=== PATIENT | female | born 1975 | race Caucasian/White ===

== ENCOUNTER 2017-12-17 11:17 | Emergency (ER) | payer MEDICARE ==
[~2017-12-17] VITALS: Ht 162.6 cm; Wt 81.7 kg
[~2017-12-17 11:17] MED LIST: AMITRIPTYLINE H25 MG PO; BACLOFEN10 MG PO; BENADRYL ALLERG25 MG PO; CHLORHEXIDINE473 ML MM; CLARITIN5 MG PO; DAYPRO600 MG PO; DEPO-PROVE400 MG/1 M IM; DESMOPRESSIN A0.2 MG PO; DEXAMETHASONE4 MG PO; DIAZEPAM5 MG PO; DOXYCYCLINE HY100 MG PO; EPIPEN 2-P0.3 MG/0.3 IM; FLONASE ALLERG9.9 ML NS; GABAPENTIN100 MG PO; IBUPROFEN800 MG PO; MAXALT MLT10 MG PO; MAXALT10 MG PO; MEDICAL THC PO; METOCLOPRAMIDE10 MG PO; NORCO 7.5-3251 EACH PO; OXYCODONE-ACET1 EAC1 PO; RANITIDINE HCL150 MG PO; REGLAN10 MG PO; RIZATRIPTAN10 M1 PO; ROBAXIN-750750 MG PO; SINGULAIR10 MG PO; ZOFRAN ODT4 MG PO; ZYRTEC10 MG PO
[2017-12-17] MEDS ORDERED: ATIVAN2 MG PO (15:33)
--- NOTE | 2017-12-17 21:12 | EKG ---
[facility] [address] [facility] [address] [place] [address] Signed Sinus rhythm with short WV RSR' or QR pattern in V1 suggests right ventricular conduction delay Borderline ECG No previous ECGs available Confirmed by CAROLINA MEHTA MD ([id number]) on 12/17/2017 9:12:06 PM Electronically Signed By: CAROLINA MEHTA MD 12/17/172111 PATIENT NAME: SANJEEV MOREIRA Electrocardiogram DATE OF : 77 PHYSICIAN: CAROLINA MEHTA MD REPORT #: [id number] REPORT IS CONFIDENTIAL AND NOT TO BE RELEASED WITHOUT AUTHORIZATION
== END 2017-12-17 15:44 | disposition home or self-care (01) ==
LOC: ED 11:17
DX: R42 Dizziness and giddiness (principal); G43.909 Migraine, unspecified, not intractable, without status migrainosus; Z88.8 Allergy status to other drugs, medicaments and biological substances; Z91.030 Bee allergy status; Z88.5 Allergy status to narcotic agent; Z79.899 Other long term (current) drug therapy
CPT/HCPCS: 71046; 80053; 81001; 84484; 85025; 93005; 93010; 96361; 96374; 96375; 99284; J2060; J2405; J7030

== ENCOUNTER 2019-04-09 19:50 | Emergency (ER) | payer MEDICARE ==
[~2019-04-09] VITALS: Ht 162.6 cm; Wt 87.2 kg
[~2019-04-09 19:50] MED LIST changes: +ATIVAN2 MG PO; +FLONASE ALLERG9.9 ML NAS; +GABAPENTIN300 MG PO; +ZYRTEC10 M3 PO
--- OUTSIDE RECORDS SUMMARY | 2019-04-09 19:52 | XMS ---
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 Care History Medical/Surgical 05/24/2018 [facility] - PATIENT HAS NOT SEEN PCP DR HANSEN SINCE 06/24/2017. PATIENT HAS A LONG HISTORY OF CHRONIC HEADACHES/MIGRAINES. - PATIENT NEEDS TO FOLLOW UP WITH PCP AFTER ED VISIT. - PLEASE REFER PATIENT TO PCP OFFICE FOR CHRONIC CONDITIONS THAT ARE NON EMERGENT. E.D. VISIT COUNT (12 MO[address] 3 [facility]. TOTAL 3 NOTE: Visits indicate total known visits. ED/UCC VISIT TRACKING (12 MO.) 04/09/2019 19:51 [facility] [place] TYPE: Emergency COMPLAINT: - FOOT PAIN/INJURY 02/10/2019 20:04 [facility] [place] [place] TYPE: Emergency COMPLAINT: - HEADACHE DIAGNOSES: - Personal history of nicotine dependence - Acquired absence of other specified parts of digestive tract - Other nonmedicinal substance allergy status - Bee allergy status - Allergy status to narcotic agent status - Other prison (current) drug therapy - Headache 05/20/2018 21:52 [facility] [place] TYPE: Emergency COMPLAINT: - HEAD PAIN,NON INJURY DIAGNOSES: - Bee allergy status - Personal history of nicotine dependence - Other prison (current) drug therapy - Allergy status to narcotic agent status - Migraine, unspecified, not intractable, without status migrainosus - Headache - Allergy status to other drugs, medicaments and biological substances status INPATIENT VISIT TRACKING (12 MO.) No inpatient visits to display in this time frame [email or web address]
[2019-04-09] MEDS ORDERED: REGLAN10 MG PO (20:04)
[2019-04-09] MEDS ORDERED: MAXALT MLT10 MG PO (20:04)
[2019-04-09] MEDS ORDERED: ONDANSETRON ODT8 MG PO (20:04)
[2019-04-09] MEDS ORDERED: METHOTREXATE2.5 MG PO (20:05)
== END 2019-04-09 20:36 | disposition home or self-care (01) ==
LOC: ED 19:50
DX: S90.111A Contusion of right great toe without damage to nail, initial encounter (principal); Z91.030 Bee allergy status; Z91.041 Radiographic dye allergy status; Z88.5 Allergy status to narcotic agent; Z79.899 Other long term (current) drug therapy; W22.8XXA Striking against or struck by other objects, initial encounter
CPT/HCPCS: 73630; 99283-25

== ENCOUNTER 2019-09-01 20:47 | Emergency (ER) | payer MEDICARE ==
[~2019-09-01] VITALS: Ht 165.1 cm; Wt 88.6 kg
[~2019-09-01 20:47] MED LIST changes: +METHOTREXATE2.5 MG PO; +ONDANSETRON ODT8 MG PO
--- OUTSIDE RECORDS SUMMARY | 2019-09-01 20:50 | XMS ---
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 Care History Medical/Surgical 05/24/2018 [facility] - PATIENT HAS NOT SEEN PCP DR HANSEN SINCE 06/24/2017. PATIENT HAS A LONG HISTORY OF CHRONIC HEADACHES/MIGRAINES. - PATIENT NEEDS TO FOLLOW UP WITH PCP AFTER ED VISIT. - PLEASE REFER PATIENT TO PCP OFFICE FOR CHRONIC CONDITIONS THAT ARE NON EMERGENT. E.Ousmane. VISIT COUNT (12 MO.) 3 [facility]. TOTAL 3 NOTE: Visits indicate total known visits. ED/UCC VISIT TRACKING (12 MO.) 09/01/2019 20:47 [facility] [place] TYPE: Emergency COMPLAINT: - HEADACHE 04/09/2019 19:51 [facility] [place] TYPE: Emergency COMPLAINT: - FOOT PAIN/INJURY DIAGNOSES: - Striking against or struck by other objects, init encntr - Allergy status to narcotic agent status - Contusion of right great toe w/o damage to nail, init encntr - Other jail (current) drug therapy - Pain in right toe(s) - Bee allergy status - Radiographic dye allergy status 02/10/2019 20:04 [facility] [place] TYPE: Emergency COMPLAINT: - HEADACHE DIAGNOSES: - Personal history of nicotine dependence - Acquired absence of other specified parts of digestive tract - Other nonmedicinal substance allergy status - Bee allergy status - Allergy status to narcotic agent status - Other director long term care (current) drug therapy - Headache INPATIENT VISIT TRACKING (12 MO.) No inpatient visits to display in this time frame [id number]
[2019-09-01] MEDS ORDERED: LEFLUNOMIDE20 MG PO (21:02)
== END 2019-09-01 22:45 | disposition home or self-care (01) ==
LOC: ED 20:47
DX: R51 Headache (principal); Z88.5 Allergy status to narcotic agent; Z91.030 Bee allergy status; Z79.899 Other long term (current) drug therapy
CPT/HCPCS: 96361; 96374; 96375; 99283-25; J1200; J1885; J2765; J7030

== ENCOUNTER 2019-12-06 20:57 | Emergency (ER) | payer MEDICARE, OTHER ==
[~2019-12-06] VITALS: Ht 165.1 cm; Wt 88.5 kg
--- OUTSIDE RECORDS SUMMARY | ~2019-12-06 | XMS | Clinical Summary ---
Demographics + + + | Address | [address] | | | [place] [address] | + + + | Home Phone | | + + + | Preferred Language | Unknown | + + + | Marital Status | | + + + | Spiritism Affiliation | Unknown | + + + | Race | Unknown | + + + | Ethnic Group | Unknown | + + + Author + + + | Author | [facility] (Historical as of | | | 03-12-19) | + + + | Organization | [facility] (Historical as of | | | 03-12-19) | + + + | Address | Unknown | + + + | Phone | Unavailable | + + + Care Team Providers + +------+ + | Care Application Consultant Name | Role | Phone | + +------+ + | Sanjay Guy MD | PP | | + +------+ + Allergies Not on File Current Medications Not on file Active Problems Not on file Social History + +-------+ +--------+------+ | Tobacco Use | Types | Packs/Day | Years | Date | | | | | Used | | + +-------+ +--------+------+ | Never Assessed | | | | | + +-------+ +--------+------+ + + + | Sex Assigned at | Date Recorded | | | | + + + | Not on file | | + + + Plan of Treatment Not on file Results Not on filefrom Last 3 Months Insurance + +--------+ +------+-------+ + | Payer | Benefi | Subscriber | Type | Phone | Address | | | t Plan | ID | | | | | | / | | | | | | | Group | | | | | + +--------+ +------+-------+ + | MEDICARE | MEDICA | [id number] | | | [address] | | | RE | | | | [place] [address] | | | IP-OP | | | | | + +--------+ +------+-------+ + + +--------+ +--------+ + + | Guarantor Name | Accoun | Relation to | Date | Phone | Billing Address | | | t Type | Patient | of | | | | | | | | | | + +--------+ +--------+ + + | SANJEEV BENITEZ | Person | Self | [birth year] | Home: | [address] | | | [address]Fam | | 1974 | [phone] [place] | | | [place] | | [phone] | + +--------+ +--------+ + +"
--- OUTSIDE RECORDS SUMMARY | ~2019-12-06 | XMS | Encounter Summary ---
Demographics + + + | Address | [address] | | | [place] [address] | + + + | Home Phone | | + + + | Preferred Language | Unknown | + + + | Marital Status | Single | + + + | Yarsani Affiliation | Unknown | + + + | Race | White | + + + | Ethnic Group | Not or | + + + Author + + + | Author | [facility] | + + + | Organization | [facility] | + + + | Address | Unknown | + + + | Phone | Unavailable | + + + Support + + +---------+ + | Name | Relationship | Address | Phone | + + +---------+ + | Declined | ECON | Unknown | Unavailable | + + +---------+ + Care Team Providers + +------+ + | Care Warp Clamper Name | Role | Phone | + +------+ + | Sanjay Guy MD | PCP | | + +------+ + Reason for Visit Rehabilitation Therapy (Routine) +--------+--------+ + + + + | Status | Reason | Specialty | Diagnoses / | Referred By | Referred To | | | | | Procedures | Contact | Contact | +--------+--------+ + + + + | Closed | | Physical | | Rhm | [facility], | | | | Therapy | | Fibromyalgia | Esther L, | | | | | | [address] | MS,PT [address] | | | | | [address] | [address] | | | | | | [address] | [address] | | | | | | Physician's | [address] [place], | | | | | | Pavilion, | [place] [address] | | | | | | 4th floor | Phone: | | | | | | [place], [place] | [phone] | | | | | | [address] | Fax: | | | | | | Phone: | [phone] | | | | | | [phone] | | | | | | | Fax: | | | | | | | [phone] | | +--------+--------+ + + + + Encounter Details +--------+---------+ + + + | Date | Type | Department | Care Team | Description | +--------+---------+ + + + | 07/02/ | Office | Rehabilitation | Esther Mckenzie L, | Fibromyalgia | | 2016 | Visit | Services at [facility] | MS,PT [address] | (Primary Dx) | | | | [address] | [facility] | | | | | Loop Physician's | [place] [address] | | | | | [place], 4th floor | [phone] | | | | | [place], [place] | | | | | | [address] | | | | | | [phone] | | | +--------+---------+ + + + Social History + +-------+ [...] + + documented as of this encounter Patient Instructions Patient Instructions Esther Mckenzie MS,PT - 07/02/2016 1:30 PM PST Dear Brian, Thank you for working with me today. Your plan of care is 1 visit for tilt table test with Esther and work station support specialist for 90 minutes. Consider tilt table test to rule out neurally mediated hypotension. Need physician order sp ecifically for tilt table test. No food or caffeine for 4 hours before the test. Drink water and take medications as usual. You must have someone drive you to and from the test. Get sp ecific instruction on location of the test during reminder call for the test. Our aim is to help you achieve your goals. Following the plan of care is central to achiev ing these goals. If at any time you are unable to keep your scheduled appointment, we ask y ou contact us at least 24 hours in advance, either by using [employer] to cancel, or calling us at [phone]. Appointments cancelled with less than 24 hours notice are considered missed appointments . If two or more appointments are missed, you have the option to postpone your care to a t johnnie that works better for you, or move to same day scheduling. I look forward to working with you in your rehabilitation! ESTHER MCKENZIE MS, PT Physical Therapist [facility] REHABILITATION SERVICES AND HAND THERAPY [address] [facility], [address] [place] [phone] + documented in this encounter Progress Notes Etsher Mckenzie MS,PT - 07/02/2016 1:30 PM PSTFormatting of this note might be different f rom the original. Start of care: 07/02/2016 Date of onset: Date of Onset: 06/26/16 Referring/Attending Practitioner to Fibromyalgia Clinic: Sanjay Guy MD . Rheumatology Referring/Attending ProviderAiram Cary NP. Primary/Referral Diagnosis/ICD-9: ICD-10-CM ICD-9-CM 1. Fibromyalgia M79.7 729.1 Fibromyalgia/Myofascial Pain/729.1/ Rule out Fibromyalgia/Myofascial pain Insurance: Payor: [employer] / Plan: BCBS OUT OF STATE / Product Type: PPO / Date of : 1975 Service period from: 07/02/2016 to: 07/01/17 Number visits used/authorized: 1 [facility] PHYSICAL THERAPY INITIAL EVALUATION Brian De La Torre MR# [id number] SUBJECTIVE: History of Presenting Problem: Brian De La Torre is a 41 y.o. female who was diagnosed wit h fibromyalgia. Problems for 15 years, worse the past 2 years. Brian presents with the following complaints: fatigue, sleep disturbance, increased pain, cognitive problem, headaches, stiffness, hypersensitivity to light, hypersensitivity to chelle se and hypersensitivity to smells/chemicals. Patient reports a pain level of today. Precautions: None. History of Fainting: yes. History of lightheadedness and/or dizziness: no, associated with visual changes, associated with nausea and/or vomiting, associated with sensation of overall weakness and associated with sensation of warmth and/or sweating . History of Radiation Exposure: no. History: Negative history of heart arrhythmia. Negative history of ischemic or structural h eart disease. Positive history of diabetes - controlled by diet. Brian is not currently on medications for blood pressure or heart conditions. Medications: No current outpatient prescriptions on file. Prior/concurrent services related to the present problem: physical therapy. Brian Goals: safe exercise program, learn to manage pain and decrease symptoms. Present status: Most significant pain sites: neck and shoulders, lower back, hips, feet and right thumb DIP . Working Status: Brian is not working due to present problems. Living situation: Brian currently lives with a spouse and children, ages 16 and 14 and wit h pet(s). House Type: single level house. Activity Level/Exercise: walking. Brain currently has access to the following equipment: none. Pain is currently, on a scale of 0-10: 5 The best the pain ever gets on a scale of 0-10 is: 2 The worst the pain ever gets on a scale of 0-10 is: 10 Pain worsens with: overactivity, inactivity and cold. Pain improves with: heat and balance of rest/activity. Living situation/environment is limiting function: no. Requests family members or friends involved with rehabilitation therapy: no Anxieties or concerns about therapy: no OBJECTIVE: Vitals: There were no vitals taken for this visit. Cranial nerves III-XII grossly intact. grossly intact except: WFL Posture: Sitting Posture: head forward, slouched sitting, round forward shoulders and flat low back. ROM (limitations only): tight hamstrings MMT (limitations only): able to squat fully toflor using hand for assist Balance/coordination 360 degree NT. Right unilateral stance duration (seconds): 15/15 Left unilateral stance duration (seconds ): 15/15 Bilateral stance eyes closed, feet together (seconds) 15/15. Gait for 25 feet (Normal 5 sec for men, 6 seconds for women):Self-selected speed in seconds : 10 Fast speed in seconds: NT Gait Deviations: slow Brian is unable to heel walk. She is able to toe walk. Outcome Measure Assessment Tool Interpretation Score 07/02/2016 Activities-specific Balance Confidence scale (ABC) > 80% High level of functioning 50-80% Moderate level of functioning < 50% indicates Low level of functioning Score < 66% in older adult and < 40% in people with multiple sclerosis has been related to high risk for falls 66.25% TREATMENT TODAY: evaluation ASSESSMENT: Treatment diagnosis/ICD-9 code = Fibromyalgia/729.1 Brian requires services that can be safely and effectively performed only by a qualified therapist to address the following problems and achieve the following goals: Problems include: Pain, morning stiffness, minimal activity and/or decreased ROM or inadeq uate/no program for exercise. Reported falling, pain with walking and/or gait deviations no lizette. Pain and/or poor posture/positioning and inadequate seating at home, work, and/or car. Pain and needs instruction in compensation/pain management. Functional discharge goals, as discussed with the Brian, due in 12 weeks: 1) Demonstrate independent home exercise program. 2) Demonstrate safe, independent walking. 3) Know proper seating for work, home and/or car. 4) Demonstrate knowledge of pain compensation/management techniques to decrease pain and in crease function. 5) Obtain and use identified equipment /tools for pain management at home/work. PLAN OF CARE: Treatment plan: One on one treatment to instruct in home exercise program with appropriate self-monitoring , pain management/compensation techniques, posture/positioning during activ ities, proper gait with correct equipment and identification of equipment needed as indicate d in initial evaluation. Brian was given information/instructions on: tilt table test to rule out neurally mediated hypotension. recommended PT and OT appointments. Recommend therapy near patient's home.. Treatment began: 1:00 Treatment ended: 1:30 PT evaluation This note is to serve as the discharge summary if Brian fails to attend further Physical T herapy appointments or contact the therapist regarding any change in their status. ESTHER MCKENZIE MS, PT Physical Therapist [facility], [address] [facility] REHABILITATION SERVICES AND HAND THERAPY [address] [place] [address] And [facility], [address] [place] [address] documented in this encounter Plan of Treatment Not on filedocumented as of this encounter Procedures + +--------+ + + + | Procedure Name | Priori | Date/Time | Associated Diagnosis | Comments | | | ty | | | | + +--------+ + + + | ID PHYS THERAPY | Routin | 07/02/2016 | Fibromyalgia | | | EVALUATION | e | 2:37 PM | | | | | | PST | | | + +--------+ + + + documented in this encounter Visit Diagnoses + + | Diagnosis | + + | Fibromyalgia - Primary Mylagia and myositis, unspecified | + + documented in this encounter"
--- OUTSIDE RECORDS SUMMARY | ~2019-12-06 | XMS | Encounter Summary ---
Demographics + + + | Address | [address] | | | [place] [address] | + + + | Home Phone | | + + + | Preferred Language | Unknown | + + + | Marital Status | Single | + + + | Sikhism Affiliation | Unknown | + + + [...] Team Providers + +------+ + | Care Tool And Die Inspector Name | Role | Phone | + +------+ + | Sanjay Guy MD | PCP | | + +------+ + Encounter Details +--------+ + + + + | Date | Type | Department | Care Team | Description | +--------+ + + + + | 02/05/ | Document-Sc | Health Information | Unknown . | | | 2016 | anned | Services [phone] | | | | | | [address] | | | | | | Mailcode: [id number] | | | | | | [facility] | | | | | | [place], [place] | | | | | | [address] | | | | | | [phone] | | | +--------+ + + + [...] | + +--------+ + + + | LAB REPORTS | | 02/06/2016 | | Results for this | | | | 12:00 AM | | procedure are in the | | | | PDT | | results section. | + +--------+ + + + documented in this encounter Results LAB REPORTS (02/06/2016 12:00 AM PDT) + + + | Narrative | Performed At | + + + | | | + + + documented in this encounter Visit Diagnoses Not on filedocumented in this encounter"
--- OUTSIDE RECORDS SUMMARY | ~2019-12-06 | XMS | Clinical Summary ---
Demographics + + + | Address | [address] | | | [place] [address] | + + + | Home Phone | | + + + | Preferred Language | Unknown | + + + | Marital Status | Unknown | + + + | Samaritan Affiliation | Unknown | + + + | Race | Unknown | + + + | Ethnic Group | Unknown | + + + Author + + + | Author | [facility] | | | and [place] | + + + | Organization | [facility] | | | [...] Team Providers + +------+ + | Care City Detective Name | Role | Phone | + +------+ + | Sanjay Guy MD | PCP | | + +------+ + Allergies + + + + + + | Active Allergy | Reactions | Severity | Noted | Comments | | | | | Date | | + + + + + + | Bee Venom | Anaphylaxis | High | 01/26/20 | Delayed after | | | | | 17 | anaphylaxis, angio | | | | | | edema | + + + + + + | Codeine | Nausea And Vomiting | | 01/26/20 | | | | | | 17 | | + + + + + + | Iodine | Itching | | 01/26/20 | | | | | | 17 | | + + + + + + Medications + + + +---------+------+------+-------+ | Medication | Sig | Dispensed | Refills | Star | End | Statu | | | | | | t | Date | s | | | | | | Date | | | + + + +---------+------+------+-------+ | SUMAtriptan | Take 100 mg by mouth | | 0 | | | Activ | | (IMITREX) 100 mg | as needed for | | | | | e | | tablet | Migraine (took | | | | | | | | today). | | | | | | + + + +---------+------+------+-------+ | gabapentin | Take 100 mg by mouth | | 0 | | | Activ | | (NEURONTIN) 100 mg | Daily. | | | | | e | | capsule | | | | | | | + + + +---------+------+------+-------+ | prochlorperazine | Take 10 mg by mouth | | 0 | | | Activ | | (COMPAZINE) 10 mg | every 6 hours as | | | | | e | | tablet | needed (for | | | | | | | | migraines, nausea). | | | | | | + + + +---------+------+------+-------+ Active Problems + + + | Problem | Noted Date | + + + | Migraine without aura and without status migrainosus, not | 01/25/2017 | | intractable | | + + + | Medical marijuana use | 01/25/2017 | + + + Social History + [...] | + + + + + | Vaccine: | | | | | Dtap/Tdap/Td (1 - | 7 | | | | Tdap) | | | | + + + + + | Cervical Cancer | | | | | Screening (Pap) | 6 | | | + + + + + | Vaccine: Influenza | | | | | (Season Ended) | 0 | | | + + + + + Results Not on filefrom Last 3 Months Insurance + +--------+ +--------+ +---------+--------+ | Payer | Benefi | Subscriber | Effect | Phone | Address | Type | | | t Plan | ID | jennifer | | | | | | / | | Dates | | | | | | Group | | | | | | + +--------+ +--------+ +---------+--------+ | MEDICARE | MEDICA | [id number] | Effect | [phone] | | Medica | | | RE | | jennifer | 5 | | re | | | PART A | | for | | | | | | | | all | | | | | | | | dates | | | | + +--------+ +--------+ +---------+--------+ + +--------+ +--------+ + + | Guarantor Name | Accoun | Relation to | Date | Phone | Billing Address | | | t Type | Patient | of | | | | | | | | | | + +--------+ +--------+ + + | Brian De La Torre | Person | Self | [birth year] | [address] | al/Fam | | 1975 | [phone] | [address] [place], | | | [place] | | | [address] ([place]) | [place] [address] | + +--------+ +--------+ + + Advance Directives + + + + + | Type | Date Recorded | Patient | Explanation | | | | Senior Electronics Technician | | + + + + + | Power of | | | | | Bedspread Seamer | | | | + + + + + | Advance | | | | | Directive | | | | + + + + +
--- OUTSIDE RECORDS SUMMARY | ~2019-12-06 | XMS | Encounter Summary ---
Demographics + + + | Address | [address] | | | [place] [address] | + + + | Home Phone | | + + + | Preferred Language | Unknown | + + + | Marital Status | Single | + + + | Caodaism Affiliation | Unknown | + + + | Race | White | + + + | Ethnic Group | Not or | + + + Author + + + | Author | [facility] | + + + | Organization | [facility] | + + + | Address | Unknown | + + + | Phone | Unavailable | + + + Support + + +---------+ + | Name | Relationship | Address | Phone | + + +---------+ + | Declined | ECON | Unknown | Unavailable | + + +---------+ + Care Team Providers + +------+ + | Care Senior Care Manager Name | Role | Phone | + +------+ + | Sanjay Guy MD | PCP | | + +------+ + Encounter Details +--------+ + + + + | Date | Type | Department | Care Team | Description | +--------+ + + + + | 03/25/ | Document-Sc | Health Information | Unknown . | | | 2017 | anned | Services [address] | | | | | | [address] | | | | | | Mailcode: [id number] | | | | | | [facility] | | | | | | [place], [place] | | | | | | [address] | | | | | | [phone] | | | +--------+ + + + [...]
--- OUTSIDE RECORDS SUMMARY | ~2019-12-06 | XMS | Clinical Summary ---
Demographics + + + | Address | [address] | | | [place] [address] | + + + | Home Phone | | + + + | Preferred Language | Unknown | + + + | Marital Status | Single | + + + | Adventist Affiliation | Unknown | + + + [...] Team Providers + +------+ + | Care Wooden Boat Builder Name | Role | Phone | + +------+ + | Sanjay Guy MD | PCP | | + +------+ + Source Comments TRUMAN is fully live on both [facility] Ambulatory and [facility] InPatient.[facility] Allergies + + + + + + [...] | BCBS | xxxxxxxxxxx | 07/27/19 | [phone] | [address] | PPO | | SHIELD | OUT OF | x | 14-Pre | 8 | [address] | | | | STATE | | sent | | [place], | | | | | | | | [place] | | | | | | | | [address] | | + +--------+ +--------+ + +------+ [...] al/Fam | | 1975 | [phone] | [place] [address] | | | boubacar | | | 6 (Home) | | + +--------+ +--------+ + +"
--- OUTSIDE RECORDS SUMMARY | ~2019-12-06 | XMS | Encounter Summary ---
Demographics + + + | Address | [address] | | | [place] [address] | + + + | Home Phone | | + + + | Preferred Language | Unknown | + + + | Marital Status | Single | + + + | Zoroastrianism Affiliation | Unknown | + + + | Race | White | + + + | Ethnic Group | Not or | + + + Author + + + | Author | [facility] | + + + | Organization | [facility] | + + + | Address | Unknown | + + + | Phone | Unavailable | + + + Support + + +---------+ + | Name | Relationship | Address | Phone | + + +---------+ + | Declined | ECON | Unknown | Unavailable | + + +---------+ + Care Team Providers + +------+ + | Care Kitchen And Counter Worker Name | Role | Phone | + +------+ + | Sanjay Guy MD | PCP | | + +------+ + Encounter Details +--------+ + + + + | Date | Type | Department | Care Team | Description | +--------+ + + + + | 02/05/ | Document-Sc | Health Information | Unknown . | | | 2016 | anned | Services [address] | | | | | | [address] | | | | | | Mailcode: OP17A | | | | | | [facility] | | | | | | [place], [place] | | | | | | [address] | | | | | | [phone] | | | +--------+ + + + [...]
--- OUTSIDE RECORDS SUMMARY | ~2019-12-06 | XMS | Encounter Summary ---
Demographics + + + | Address | [address] | | | [place] [address] | + + + | Home Phone | | + + + | Preferred Language | Unknown | + + + | Marital Status | Single | + + + | Holiness Affiliation | Unknown | + + + | Race | White | + + + | Ethnic Group | Not or | + + + Author + + + | Author | [facility] | + + + | Organization | [facility] | + + + | Address | Unknown | + + + | Phone | Unavailable | + + + Support + + +---------+ + | Name | Relationship | Address | Phone | + + +---------+ + | Declined | ECON | Unknown | Unavailable | + + +---------+ + Care Team Providers + +------+ + | Care Fuel Management Handler Name | Role | Phone | + [...] | | | | | | | [place], [place] | | | | | | | [address] | | | | | | | Phone: | | | | | | | [phone] | | | | | | | Fax: | | | | | | | [phone] | +--------+--------+ + + + + Encounter [...] Dx) | | | | Barbara Jansen [address] | | | | | [address] | [place], [place] | | | | | Physician's | [address] | | | | | [place], 4th Floor | | | | | | [place], [place] | | | | | | [address] | | | | | | [phone] | | | +--------+---------+ + + + [...] Primary/Referral Diagnosis/ICD-9: Fibromyalgia M79.7 729.1 Insurance: Payor: [employer] [place] [employer] / Plan: [employer] OUT OF STATE / Product Type: PPO / Service period from: 07/02/2016 to: 09/30/2016 Number visits used/authorized: 07/[address] [facility] OCCUPATIONAL THERAPY EVALUATION: FIBROMYALGIA SUBJECTIVE: History of [...] migraines. Also of note, she has an [facility] history of migraines and has cognitive [...] for this). 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 Increased pain with work: NA Brian comes home unable to do tasks: NA Leisure activities: Camping- goes to [employer] and picks huckleb[employer]View. Coping Strategies: Playing with kittens, taking a [...] Evaluation Celeste Rudolph OT REHABILITATION SERVICES AT [address] Mailcode: Op19 [place] [address] documented in this enco unter Plan of Treatment Not on filedocumented as of this encounter Procedures + +--------+ + + + | Procedure Name | Priori | Date/Time | Associated Diagnosis | Comments | | | ty | | | | + +--------+ + + + | [place] OCCUPATIONAL | Routin | 07/02/2016 | Fibromyalgia [...]
--- OUTSIDE RECORDS SUMMARY | ~2019-12-06 | XMS | Encounter Summary ---
Demographics + + + | Address | [address] | | | [place] [address] | + + + | Home Phone | | + + + | Preferred Language | Unknown | + + + | Marital Status | Single | + + + | Denominational Affiliation | Unknown | + + + [...] Team Providers + +------+ + | Care Mortgage Loan Specialist Name | Role | Phone | [...] | | | | Physician's | [address] [place], | | | | | | [place] | [place] [address] | | | | | | 4th floor | Phone: | | | | | | [place], [place] | [phone] | | | | | | [address] | Fax: | | | | | | Phone: | [phone] | | | | | | [phone] | | | | | | | Fax: | | | | | | | [phone] | | +--------+--------+ + + + + Encounter Details +--------+---------+ + + + | Date | Type | Department | Care Team | Description | +--------+---------+ + + + | 07/02/ | Office | Rehabilitation | Esther Mckenzie L, | Fibromyalgia | | 2016 | Visit | Services at [facility] | MS,PT [address] | (Primary Dx) | | | | [address] | [facility] | | | | | Loop Physician's | [place] [address] | | | | | [place], 4th floor | [phone] | | | | | [place], [place] | | | | | | [address] | | | | | | [phone] | | | +--------+---------+ + + + [...] for tilt table test with Esther and child care development specialist for 90 minutes. Consider tilt table [...] 24 hours in advance, either by using [email or web address] to cancel, or calling us at [phone]. Appointments cancelled with less than 24 hours notice are considered missed appointments . If two or more appointments are missed, you have the option to postpone your care to a t johnnie that works better for you, or move to same day scheduling. I look forward to working with you in your rehabilitation! ESTHER MCKENZIE MS, PT Physical Therapist [facility] REHABILITATION SERVICES AND HAND THERAPY [address] [facility], [address] [place] [address] + documented in this encounter Progress [...] Pain/729.1/ Rule out Fibromyalgia/Myofascial pain Insurance: Payor: [employer] / Plan: BCBS OUT OF STATE / Product Type: PPO / Date of : 1975 Service period from: 07/02/2016 to: 07/01/17 Number visits used/authorized: 1 [facility] PHYSICAL THERAPY INITIAL EVALUATION Brian De La Torre MR# [id number] SUBJECTIVE: History of Presenting Problem: Brian De [...] Physical Therapist [facility], [facility] [facility] REHABILITATION SERVICES AND HAND THERAPY [address] [place] [address] And [facility], [address] [place] [address] documented in this encounter Plan of Treatment Not on filedocumented as of this encounter Procedures + +--------+ + + + | Procedure Name | Priori | Date/Time | Associated Diagnosis | Comments | | | ty | | | | + +--------+ + + + | [place] PHYS THERAPY | Routin | 07/02/2016 | [...]
--- OUTSIDE RECORDS SUMMARY | ~2019-12-06 | XMS | Encounter Summary ---
Demographics + + + | Address | [address] | | | [place] [address] | + + + | Home Phone | | + + + | Preferred Language | Unknown | + + + | Marital Status | Single | + + + | Restoration Affiliation | Unknown | + + + | Race | White | + + + | Ethnic Group | Not or | + + + Author + + + | Author | [facility] | + + + | Organization | [facility] | + + + | Address | Unknown | + + + | Phone | Unavailable | + + + Support + + +---------+ + | Name | Relationship | Address | Phone | + + +---------+ + | Declined | ECON | Unknown | Unavailable | + + +---------+ + Care Team Providers + +------+ + | Care Panel Saw Operator Name | Role | Phone | + [...] | | | | | | | [place], [place] | | | | | | | [address] | | | | | | | Phone: | | | | | | | [phone] | | | | | | | Fax: | | | | | | | [phone] | +--------+--------+ + + + + Encounter [...] | | | [address] | [place], [place] | | | | | Physician's | [address] | | | | | [place], 4th Floor | | | | | | [place], [place] | | | | | | [address] | | | | | | [phone] | | | +--------+---------+ + + + [...] Primary/Referral Diagnosis/ICD-9: Fibromyalgia M79.7 729.1 Insurance: Payor: [employer] [place] [employer] / Plan: [employer] OUT OF STATE / Product Type: PPO / Service period from: 07/02/2016 to: 09/30/2016 Number visits used/authorized: 07/27 [facility] OCCUPATIONAL THERAPY EVALUATION: FIBROMYALGIA SUBJECTIVE: [...] migraines. 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 Increased pain with work: NA Brian comes home unable to do tasks: NA Leisure activities: Camping- goes to [employer] and picks huckleb[employer]uddle. Coping Strategies: Playing with kittens, taking a [...] Celeste Rudolph OT REHABILITATION SERVICES AT [address] Mailcode: Op19 [place] [address] documented in this enco unter Plan of Treatment Not on filedocumented as of this encounter Procedures + +--------+ + + + | Procedure Name | Priori | Date/Time | Associated Diagnosis | Comments | | | ty | | | | + +--------+ + + + | [place] OCCUPATIONAL | Routin | 07/02/2016 | Fibromyalgia [...]
--- OUTSIDE RECORDS SUMMARY | ~2019-12-06 | XMS | Encounter Summary ---
Demographics + + + | Address | [address] | | | [place] [address] | + + + | Home Phone | | + + + | Preferred Language | Unknown | + + + | Marital Status | Single | + + + | Confucianist Affiliation | Unknown | + + + | Race | White | + + + | Ethnic Group | Not or | + + + Author + + + | Author | [facility] | + + + | Organization | [facility] | + + + | Address | Unknown | + + + | Phone | Unavailable | + + + Support + + +---------+ + | Name | Relationship | Address | Phone | + + +---------+ + | Declined | ECON | Unknown | Unavailable | + + +---------+ + Care Team Providers + +------+ + | Care Recyclable Products Sorter Name | Role | Phone | + [...] | | | | | Procedures | AFTER SCHOOL PROGRAM DIRECTOR [address] | Mailcode: | | | | | | [address] | [facility] | | | | | OCCUPATIONAL | [place] [address] | for Health | | | | | THERAPY | [place], [place] | and Healing, | | | | | REFERRAL | [address] | [address], | | | | | | Phone: | [address] Floor | | | | | | [phone] | [facility] [place] | | | | | | Fax: | [address] | | | | | | [phone] | Phone: | | | | | | | [phone] | | | | | | | Fax: | | | | | | | [phone] | +--------+--------+ + + + + Physical [...] | | | | | Procedures | AFTER SCHOOL PROGRAM DIRECTOR [address] | Mailcode: | | | | | PHYSICAL | [address] | [facility] | | | | | THERAPY | [address] | for Health | | | | | REFERRAL | [place], [place] | and Healing, | | | | | | [address] | [address], | | | | | | Phone: | [address]St Floor | | | | | | [phone] | [place], [place] | | | | | | Fax: | [address] | | | | | | [phone] | Phone: | | | | | | | [phone] | | | | | | | Fax: | | | | | | | [phone] | +--------+--------+ + + + + Reason [...] | | | | elevated CRP | [address] | | | | | and ESR | [address] | Physician's | | | | | | [place], | [place], | | | | | | [place] [address] | 4th floor | | | | | | Phone: | [place], [place] | | | | | | [phone] | [address] | | | | | | Fax: | Phone: | | | | | | [phone] | [phone] | | | | | | | Fax: | | | | | | | [phone] | +--------+--------+ + + + + Encounter Details +--------+---------+ + + + | Date | Type | Department | Care Team | Description | +--------+---------+ + + + | 07/02/ | Office | Rheumatology at | Airam Cary | Fibromyalgia | | 2016 | Visit | Physicians DOMO Mccullough [address] | (Primary Dx) | | | | [address] | [address] | | | | | Loop Physician's | [place], [place] | | | | | Pavilion, 4th floor | [address] | | | | | [place], [place] | [phone] | | | | | [address] | | | | | | [phone] | | | +--------+---------+ + + + [...] specifically dis cuss this consultation. Recommendations: WEBSITES: [email or web address] ([facility] research and information regarding patient education seminars [facility]) ` Www.[email or web address] BOOKS: "Fibromyalgia: Woman's Tool Kit" by Sara [...] "Fibromyalgia: After Your Visit", log into your [employer] account at http ://www.[facility]/ConsiderC. You can enter V003 in the TabSys Library" search box. Not on [employer]? Review the Tissue Genesishart section of your After Visit Summary for directions on ho w to sign up. [id number] [employer]. Care instructions adapted under license by [facility]. This care instruction is for use with your licensed healthcar e professional. If you have questions about a medical condition or this instruction, always ask your healthcare professional. [employer] disclaims any warranty or liabili ty for your use of this information. Content Version: 9.9.907789; Last Revised: December 10, 2012 "From the brain alone arise our pleasures, laughter, and jests, as well as our sorrows, daniel n, and griefs." Hippocrates documented in this encounter Progress Notes Airam Cary FNP - 07/02/2016 12:30 PM PSTFormatting of this note might be differe nt from the original. New Fibromyalgia Patient Consult: This patient was referred by: Sanjay Guy MD [facility] [address] [place] [address] [place] [address], . Your patient, Ms. De La Torre, a 41 y.o. female, was evaluated in the [facility] Fibromyalgia Clin ic on July 02, 2016. This evaluation consisted of a fibromyalgia focused history and amaro ited physical examination, psychosocial assessment with focus on group education (60 min) an d counselling regarding diagnosis, treatment options, self-care measures, expectations and p rognosis. Travelling from [place]. History of Current Problem: Ms. De La [...] smokeless tobacco history on file. Work History: [employer]. Medico-Legal: No pending litigation. Sleep History: Describes [...] scale (SS) rating of 6. The 2010 Samoan Tc ege of Rheumatology (ACR) criteria for diagnosis scores a WPI of 7 or greater and a SS of 5 positively as well as a WPI of 3 and a SS of 9 or greater. She suffers from moderate fibromy algia pain and dysfunction. She was given verbal and written information on fibromyalgia at the time of evaluation. The web site www.myalgia.[email or web address] is also an excellent resource for sarita [...] 3 [facility] . Trigger point injections give symptomatic [...] referral for re-evaluation. DOMO Montgomery RHEUMATOLOGY AT [address] Mailcode: Pv35 [place] [address] Display Progress Note in Tissue Genesishart: No documented in t his encounter Plan of Treatment Not on filedocumented as of this encounter Visit Diagnoses + + | Diagnosis | + + | Fibromyalgia - Primary Mylagia and myositis, unspecified | + + documented in this encounter
--- OUTSIDE RECORDS SUMMARY | ~2019-12-06 | XMS | Encounter Summary ---
Demographics + + + | Address | [address] | | | [place] [address] | + + + | Home Phone | | + + + | Preferred Language | Unknown | + + + | Marital Status | Single | + + + | Jain Affiliation | Unknown | + + + | Race | White | + + + | Ethnic Group | Not or | + + + Author + + + | Author | [facility] | + + + | Organization | [facility] | + + + | Address | Unknown | + + + | Phone | Unavailable | + + + Support + + +---------+ + | Name | Relationship | Address | Phone | + + +---------+ + | Declined | ECON | Unknown | Unavailable | + + +---------+ + Care Team Providers + +------+ + | Care Senior Network Engineer Name | Role | Phone | [...] [address] | | | | | [address] | [facility] | | | | | Loop Physician's | [place], [place] | | | | | [place], [address] [place] [address] | [address] | | | | | [place], [place] | [phone] | | | | | [address] | | | | | | [phone] | | | +--------+ + + + [...]
--- OUTSIDE RECORDS SUMMARY | ~2019-12-06 | XMS | Encounter Summary ---
Demographics + + + | Address | [address] | | | [place] [address] | + + + | Home Phone | | + + + | Preferred Language | Unknown | + + + | Marital Status | Single | + + + | Baptist Affiliation | Unknown | + + + [...] Team Providers + +------+ + | Care Retail Advertising Account Executive Name | Role | Phone | + +------+ + | aSnjay Guy MD | PCP | | + [...] | | | | | Procedures | MAGNETIC TESTING TECHNICIAN [address] | Mailcode: | | | | | | [address] | [facility] | | | | | OCCUPATIONAL | [place] | for Health | | | | | THERAPY | [place], [place] | and Healing, | | | | | REFERRAL | [address] | [address], | | | | | | Phone: | [address]St Floor | | | | | | [phone] | [facility] [place] | | | | | | Fax: | [address] | | | | | | [phone] | Phone: | | | | | | | [phone] | | | | | | | Fax: | | | | | | | [phone] | +--------+--------+ + + + + Physical [...] | | | | | Procedures | MAGNETIC TESTING TECHNICIAN [address] | Mailcode: | | | | | PHYSICAL | [address] | [facility] | | | | | THERAPY | [address]ella [address]gu[address] | for Health | | | | | REFERRAL | [place], [place] | and Healing, | | | | | | [address] | [address], | | | | | | Phone: | [address]St Floor | | | | | | [phone] | [place], [place] | | | | | | Fax: | [address] | | | | | | [phone] | Phone: | | | | | | | [phone] | | | | | | | Fax: | | | | | | | [phone] | +--------+--------+ + + + + Reason [...] | | | | elevated CRP | [place] | [address] | | | | | and ESR | [address] | Physician's | | | | | | [place], | [place], | | | | | | [place] [address] | 4th floor | | | | | | Phone: | [place], [place] | | | | | | [phone] | [address] | | | | | | Fax: | Phone: | | | | | | [phone] | [phone] | | | | | | | Fax: | | | | | | | [phone] | +--------+--------+ + + + + Encounter Details +--------+---------+ + + + | Date | Type | Department | Care Team | Description | +--------+---------+ + + + | 07/02/ | Office | Rheumatology at | [facility] | Fibromyalgia | | 2016 | Visit | Physicians DOMO Mccullough [address] | (Primary Dx) | | | | [address] | [address] | | | | | Loop Physician's | [place], [place] | | | | | Pavilion, 4th floor | [address] | | | | | [place], [place] | [phone] | | | | | [address] | | | | | | [phone] | | | +--------+---------+ + + + [...] specifically dis cuss this consultation. Recommendations: WEBSITES: Www.Curbsy.[email or web address] Online Media ([facility] research and information regarding patient education seminars [facility]) ` Www.Heirloom Computingia.[email or web address] Online Media BOOKS: "Fibromyalgia: Woman's Tool Kit" by Sara [...] "Fibromyalgia: After Your Visit", log into your [employer] account at http ://www.[email or web address]/Ingenious Med. You can enter V003 in the Matchpoint Careers Library" search box. Not on [employer]? Review the Wowsaihart section of your After Visit Summary for directions on ho w to sign up. 1646-0833 [employer]. Care instructions adapted under license by [facility]. This care instruction is for use with your licensed healthcar e professional. If you have questions about a medical condition or this instruction, always ask your healthcare professional. [employer] disclaims any warranty or liabili ty for your use of this information. Content Version: 9.9.988548; Last Revised: December 10, 2012 "From the brain alone arise our pleasures, laughter, and jests, as well as our sorrows, daniel n, and griefs." Hippocrates documented in this encounter Progress Notes Airam Cary FNP - 07/02/2016 12:30 PM PSTFormatting of this note might be differe nt from the original. New Fibromyalgia Patient Consult: This patient was referred by: Sanjay Guy MD [facility] [address] [place] [address] [place] [address], . Your patient, Ms. De La Torre, a 41 y.o. female, was evaluated in the [facility] Fibromyalgia Clin ic on July 02, 2016. This evaluation consisted of a fibromyalgia focused history and amaro ited physical examination, psychosocial assessment with focus on group education (60 min) an d counselling regarding diagnosis, treatment options, self-care measures, expectations and p rognosis. Travelling from [place]. History of Current Problem: Ms. De La [...] smokeless tobacco history on file. Work History: [employer]. Medico-Legal: No pending litigation. Sleep History: Describes [...] scale (SS) rating of 6. The 2010 Czech Tc ege of Rheumatology (ACR) criteria for diagnosis scores a WPI of 7 or greater and a SS of 5 positively as well as a WPI of 3 and a SS of 9 or greater. She suffers from moderate fibromy algia pain and dysfunction. She was given verbal and written information on fibromyalgia at the time of evaluation. The web site www.myalgia.Nectar Online Media is also an excellent resource for sarita [...] 3 to 4 [facility] . Trigger point injections give symptomatic relief [...] referral for re-evaluation. DOMO Montgomery RHEUMATOLOGY AT [address] Mailcode: Pv35 [place] [address] Display Progress Note in Wowsaihart: No documented in t his encounter Plan of Treatment Not on filedocumented as of this encounter Visit Diagnoses + + | Diagnosis | + + | Fibromyalgia - Primary Mylagia and myositis, unspecified | + + documented in this encounter
--- OUTSIDE RECORDS SUMMARY | ~2019-12-06 | XMS | Clinical Summary ---
Demographics + + + | Address | [address] | | | [place] [address] | + + + | Home Phone | | + + + | Preferred Language | Unknown | + + + | Marital Status | | + + + | Jewish Affiliation | Unknown | + + + | Race | Unknown | + + + | Ethnic Group | Unknown | + + + Author + + + | Author | [facility] (Historical as of | | | 03-12-19) | + + + | Organization | [facility] (Historical as of | | | 03-12-19) | + + + | Address | Unknown | + + + | Phone | Unavailable | + + + Care Team Providers + +------+ + | Care Cafeteria Cook Name | Role | Phone | + [...] +------+-------+ + | MEDICARE | MEDICA | [id number] | | | [address] | | | RE | | | | [place] [address] | | | IP-OP | | | [...] | [place] | | | [phone] | [phone] | + +--------+ +--------+ + +"
--- OUTSIDE RECORDS SUMMARY | ~2019-12-06 | XMS | Clinical Summary ---
Demographics + + + | Address | [address] | | | [place] [address] | + + + | Home Phone [...] Team Providers + +------+ + | Care Fast Food Server Name | Role | Phone | + +------+ + | Sanjay Guy MD | PCP | | + +------+ + Source Comments TRUMAN is fully live on both [facility] and [facility] InPatient.[facility] Allergies + + + + + + [...] | BCBS | xxxxxxxxxxx | 07/27/19 | [phone] | [address] | PPO | | SHIELD | OUT OF | x | 14-Pre | 8 | [address] | | | | STATE | | sent | | [place], | | | | | | | | [place] | | | | | | | | [address] | | + +--------+ +--------+ + +------+ [...] | 1975 | [phone] | [place] [address] | | | [place] | | | 6 (Home) | | + +--------+ +--------+ + +"
--- OUTSIDE RECORDS SUMMARY | ~2019-12-06 | XMS | Encounter Summary ---
Demographics + + + | Address | [address] | | | [place] [address] | + + + | Home Phone | | + + + | Preferred Language | Unknown | + + + | Marital Status | Unknown | + + + | Sabianism Affiliation | Unknown | + + + | Race | Unknown | + + + | Ethnic Group | Unknown | + + + Author + + + | Author | [facility] | | | and [place] | + + + | Organization | [facility] | | | [...] Team Providers + +------+ + | Care Clam Dredge Boat Captain Name | Role | Phone | + [...] + + | 01/25/ | Emergency | [facility] | Mary Jane Miranda, | Migraine without | | 2017 | | HOSPITAL EMERGENCY | [address] | aura and without | | | | CENTER [address] | [place], [place] | status migrainosus, | | | | [address] [place], [place] | [address] | not intractable | | | | [address] | [phone] | (Primary Dx) | | | | [phone] | | | +--------+ + + + [...] Care Everywhere.HEADACHE, MIGRA INE: STAGES AND TREATMENT (BRUNEIAN)documented in this encounter Medications at Time of [...] +---------+--------+ + documented as of this encounter Plan [...]
--- OUTSIDE RECORDS SUMMARY | ~2019-12-06 | XMS | Encounter Summary ---
Demographics + + + | Address | [address] | | | [place] [address] | + + + | Home Phone | | + + + | Preferred Language | Unknown | + + + | Marital Status | Single | + + + | Uatsdin Affiliation | Unknown | + + + [...] Team Providers + +------+ + | Care Powder Press Operator Name | Role | Phone | [...] [address] | | | | | [address] | [facility] | | | | | Loop Physician's | [place], [place] | | | | | [place], [address] [place] [address] | [address] | | | | | [place], [place] | [phone] | | | | | [address] | | | | | | [phone] | | | +--------+ + + + [...]
--- OUTSIDE RECORDS SUMMARY | ~2019-12-06 | XMS | Encounter Summary ---
Demographics + + + | Address | [address] | | | [place] [address] | + + + | Home Phone [...] + | Author | [facility] | | | and [place] | + + + | Organization | [facility] | | | and [...] Team Providers + +------+ + | Care Shoe Repairer Helper Name | Role | Phone | + [...] + + | 01/25/ | Emergency | [facility] | Mary Jane Miranda, | Migraine without | | 2017 | | HOSPITAL EMERGENCY | [address] | aura and without | | | | CENTER [address] | [place], [place] | status migrainosus, | | | | [address] [place], [place] | [address] | not intractable | | | | [address] | [phone] | (Primary Dx) | | | | [phone] | | | +--------+ + + + [...] Care Everywhere.HEADACHE, MIGRA INE: STAGES AND TREATMENT (TAJIK)documented in this encounter Medications at Time of [...]
--- OUTSIDE RECORDS SUMMARY | ~2019-12-06 | XMS | Encounter Summary ---
Demographics + + + | Address | [address] | | | [place] [address] | + + + | Home Phone | | + + + | Preferred Language | Unknown | + + + | Marital Status | Single | + + + | Latter-Day Affiliation | Unknown | + + + [...] Team Providers + +------+ + | Care Central Services Tech Name | Role | Phone | + +------+ + | Sanjay Guy MD | PCP | | + +------+ + Encounter Details +--------+ + + + + | Date | Type | Department | Care Team | Description | +--------+ + + + + | 03/25/ | Document-Sc | Health Information | Unknown . | | | 2017 | anned | [address] | | | | | | [address] | | | | | | Mailcode: [id number] | | | | | | [facility] | | | | | | [place], [place] | | | | | | [address] | | | | | | [phone] | | | +--------+ + + + [...]
--- OUTSIDE RECORDS SUMMARY | ~2019-12-06 | XMS | Clinical Summary ---
Demographics + + + | Address | [address] | | | [place] [address] | + + + | Home Phone | | + + + | Preferred Language | Unknown | + + + | Marital Status | Unknown | + + + | Muslim Affiliation | Unknown | + + + | Race | Unknown | + + + | Ethnic Group | Unknown | + + + Author + + + | Author | [facility] | | | and [place] | + + + | Organization | [facility] | | | and [...] Team Providers + +------+ + | Care Pump Room Operator Name | Role | Phone | [...] +--------+ +---------+--------+ | MEDICARE | MEDICA | [id number] | Effect | [phone] | | Medica [...] [place] | al/Fam | | 1975 | [phone] | [address] [place], | | | [place] | | | [address] ([place]) | [place] [address] | + +--------+ +--------+ + + Advance Directives + + + + + | Type | Date Recorded | Patient | Explanation | | | | Grinding Room Supervisor | | + + + + + | Power of | | | | | Senior International Tax Manager | | | | + + + + + | Advance | | | | | Directive | | | | + + + + +
[~2019-12-06 20:57] MED LIST changes: +LEFLUNOMIDE20 MG PO; +ORENCIA 250 MG250 MG IV
--- OUTSIDE RECORDS SUMMARY | 2019-12-06 21:00 | XMS ---
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 Care History Medical/Surgical 05/24/2018 [facility] - PATIENT HAS NOT SEEN PCP DR HANSEN SINCE 06/24/2017. PATIENT HAS A LONG HISTORY OF CHRONIC HEADACHES/MIGRAINES. - PATIENT NEEDS TO FOLLOW UP WITH PCP AFTER ED VISIT. - PLEASE REFER PATIENT TO PCP OFFICE FOR CHRONIC CONDITIONS THAT ARE NON EMERGENT. E.D. VISIT COUNT (12 MO.) 4 [facility] TOTAL 4 NOTE: Visits indicate total known visits. ED/UCC VISIT TRACKING (12 MO.) 12/06/2019 20:57 [facility] [place] TYPE: Emergency COMPLAINT: - MIGRAINE 09/01/2019 20:47 [facility] [place] TYPE: Emergency COMPLAINT: - HEADACHE DIAGNOSES: - Headache - Other halfway (current) drug therapy - Bee allergy status - Allergy status to narcotic agent status 04/09/2019 19:51 [facility] [place] TYPE: Emergency COMPLAINT: - FOOT PAIN/INJURY DIAGNOSES: - Striking against or struck by other objects, initial encounte - Allergy status to narcotic agent status - Contusion of right great toe without damage to nail, initial - Other halfway (current) drug therapy - Pain in right toe(s) - Bee allergy status - Radiographic dye allergy status 02/10/2019 20:04 [facility] [place] TYPE: Emergency COMPLAINT: - HEADACHE DIAGNOSES: - Personal history of nicotine dependence - Acquired absence of other specified parts of digestive tract - Other nonmedicinal substance allergy status - Bee allergy status - Allergy status to narcotic agent status - Other halfway (current) drug therapy - Headache INPATIENT VISIT TRACKING (12 MO.) No inpatient visits to display in this time frame [email or web address]
== END 2019-12-06 22:17 | disposition home or self-care (01) ==
LOC: ED 20:57
DX: G43.909 Migraine, unspecified, not intractable, without status migrainosus (principal); M06.9 Rheumatoid arthritis, unspecified; Z88.5 Allergy status to narcotic agent; Z91.041 Radiographic dye allergy status; Z79.899 Other long term (current) drug therapy
CPT/HCPCS: 96374; 96375; 99283-25; J1200; J1885; J2765; J7030

== ENCOUNTER 2020-01-31 20:16 | Emergency (ER) | payer MEDICARE, OTHER ==
[~2020-01-31] VITALS: Ht 165.1 cm; Wt 89.5 kg
--- OUTSIDE RECORDS SUMMARY | ~2020-01-31 | XMS | Encounter Summary ---
Demographics + + + | Address | [address] | | | [place] [address] | + + + | Home Phone | | + + + | Preferred Language | Unknown | + + + | Marital Status | Single | + + + | Lutheran Affiliation | Unknown | + + + | Race | White | + + + | Ethnic Group | Not or | + + + Author + + + | Author | [facility] | + + + | Organization | [facility] | + + + | Address | Unknown | + + + | Phone | Unavailable | + + + Support + + +---------+ + | Name | Relationship | Address | Phone | + + +---------+ + | Declined | ECON | Unknown | Unavailable | + + +---------+ + Care Team Providers + +------+ + | Care It Security Manager Name | Role | Phone | + +------+ + | Sanjay Guy MD | PCP | | + +------+ + Encounter Details +--------+ + + + + | Date | Type | Department | Care Team | Description | +--------+ + + + + | 03/25/ | Document-Sc | Health Information | Unknown . | | | 2017 | anned | [address] | | | | | | [address] | | | | | | Mailcode: [id number] | | | | | | [facility] | | | | | | [place], [place] | | | | | | [address] | | | | | | [phone] | | | +--------+ + + + + Social History + +-------+ +--------+------+ | Tobacco Use | Types | Packs/Day | Years | Date | | | | | Used | | + +-------+ +--------+------+ | Former Smoker | | | | | + +-------+ +--------+------+ + + + | Sex Assigned at | Date Recorded | | | | + + + | Not on file | | + + + + + + + | Job Start Date | Occupation | Industry | + + + + | Not on file | Not on file | Not on file | + + + + + + + + | Travel History | Travel Start | Travel End | + + + + + + | No recent travel history available. | + + documented as of this encounter Plan of Treatment Not on filedocumented as of this encounter Visit Diagnoses Not on filedocumented in this encounter"
--- OUTSIDE RECORDS SUMMARY | ~2020-01-31 | XMS | Clinical Summary ---
Demographics + + + | Address | [address] | | | [place] [address] | + + + | Home Phone | | + + + | Preferred Language | Unknown | + + + | Marital Status | Single | + + + | Latter Day Affiliation | Unknown | + + + | Race | White | + + + | Ethnic Group | Not or | + + + Author + + + | Author | [facility] | + + + | Organization | [facility] | + + + | Address | Unknown | + + + | Phone | Unavailable | + + + Support + + +---------+ + | Name | Relationship | Address | Phone | + + +---------+ + | Declined | ECON | Unknown | Unavailable | + + +---------+ + Care Team Providers + +------+ + | Care Sterile Instrument Technician Name | Role | Phone | + +------+ + | Sanjay Guy MD | PCP | | + +------+ + Source Comments TRUMAN is fully live on both [facility] Ambulatory and [facility] InPatient.[facility] Allergies + + + + + + | Active Allergy | Reactions | Severity | Noted | Comments | | | | | Date | | + + + + + + | Hymenoptera | Anaphylaxis | High | 07/02/20 | | | Allergenic Extract | | | 16 | | + + + + + + | Iodine | Anaphylaxis | High | 07/02/20 | | | | | | 16 | | + + + + + + Medications Not on file Active Problems + + + | Problem | Noted Date | + + + | Fibromyalgia | 07/02/2016 | + + + Social History + +-------+ [...] recent travel history available. | + + Last Filed Vital Signs + + + + + | Vital Sign | Reading | Time Taken | Comments | + + + + + | Blood Pressure | 101/70 | 07/02/2016 1:40 PM | | | | | PST | | + + + + + | Pulse | 80 | 07/02/2016 1:40 PM | | | | | PST | | + + + + + | Temperature | - | - | | + + + + + | Respiratory Rate | - | - | | + + + + + | Oxygen Saturation | - | - | | + + + + + | Inhaled Oxygen | - | - | | | Concentration | | | | + + + + + | Weight | 84 kg (185 lb 3.2 | 07/02/2016 1:40 PM | | | | oz) | PST | | + + + + + | Height | - | - | | + + + + + | Body Mass Index | - | - | | + + + + + Plan of Treatment + + + + + | Health Maintenance | Due Date | Last Done | Comments | + + + + + | Influenza (Flu) | | | | | vaccination (#1) | 9 | | | + + + + + | Pneumococcal | Aged Out | | No longer eligible | | vaccination | | | based on patient's | | | | | age to complete this | | | | | topic | + + + + + Results Not on filefrom Last 3 Months Insurance + +--------+ +--------+ + +------+ | Payer | Benefi | Subscriber | Effect | Phone | Address | Type | | | t Plan | ID | jennifer | | | | | | / | | Dates | | | | | | Group | | | | | | + +--------+ +--------+ + +------+ | BLUE CROSS BLUE | BCBS | xxxxxxxxxxx | 07/27/19 | [phone] | [address] | PPO | | SHIELD | OUT OF | x | 14-Pre | 8 | [address] | | | | STATE | | sent | | [place], | | | | | | | | [place] | | | | | | | | [phone] | | + +--------+ +--------+ + +------+ + +--------+ +--------+ + + | Guarantor Name | Accoun | Relation to | Date | Phone | Billing Address | | | t Type | Patient | of | | | | | | | | | | + +--------+ +--------+ + + | Brian De La Torre | Person | Self | [birth year] | [address] | | | al/Fam | | 1975 | [phone] | [place] [address] | | | [place] | | | [address] (Home) | | + +--------+ +--------+ + +"
--- OUTSIDE RECORDS SUMMARY | ~2020-01-31 | XMS | Encounter Summary ---
Demographics + + + | Address | [address] | | | [place] [address] | + + + | Home Phone | | + + + | Preferred Language | Unknown | + + + | Marital Status | Unknown | + + + | Evangelical Affiliation | Unknown | + + + | Race | Unknown | + + + | Ethnic Group | Unknown | + + + Author + + + | Author | [facility] | | | and [place] | + + + | Organization | [facility] | | | and [...] Team Providers + +------+ + | Care Mold Shifter Name | Role | Phone | + [...] + + | 01/25/ | Emergency | [facility] | Mary Jane Miranda, | Migraine without | | 2017 | | HOSPITAL EMERGENCY | [address] | aura and without | | | | C[address] | [place], [place] | status migrainosus, | | | | [address] [place], [place] | [address] | not intractable | | | | [address] | [phone] | (Primary Dx) | | | | [phone] | | | +--------+ + + + [...] Care Everywhere.HEADACHE, MIGRA INE: STAGES AND TREATMENT (COLOMBIAN)documented in this encounter Medications at Time of [...] Prescriptions None Mary Jane Miranda MD 01/25/17 [id number] documented in this en counter Miscellaneous Notes ED Triage Notes - Praveena Paulson RN - 01/25/2017 8:36 PM PDTPatient has a migraine. Is here visiting from [place]; does not have her migraine meds with [...]
--- OUTSIDE RECORDS SUMMARY | ~2020-01-31 | XMS | Clinical Summary ---
Demographics + + + | Address | [address] | | | [place] [address] | + + + | Home Phone | | + + + | Preferred Language | Unknown | + + + | Marital Status | Unknown | + + + | Jainism Affiliation | Unknown | + + + | Race | Unknown | + + + | Ethnic Group | Unknown | + + + Author + + + | Author | [facility] | | | and [place] | + + + | Organization | [facility] | | | and [...] Team Providers + +------+ + | Care Side Framer Name | Role | Phone | + [...] +--------+ +---------+--------+ | MEDICARE | MEDICA | [id number] | Effect | [phone] | | Medica [...] | Self | [birth year] | | [address] | | [place] | al/Aris | | 1975 | [phone] | [address] [place], | | | [place] | | | 7 (Home) | [place] [address] | + +--------+ +--------+ + + Advance Directives + + + + + | Type | Date Recorded | Patient | Explanation | | | | Disease Case Manager | | + + + + + | Power of | | | | | Soaker Helper | | | | + + + + + | Advance | | | | | Directive | | | | + + + + +
--- OUTSIDE RECORDS SUMMARY | ~2020-01-31 | XMS | Encounter Summary ---
Demographics + + + | Address | [address] | | | [place] [address] | + + + | Home Phone | | + + + | Preferred Language | Unknown | + + + | Marital Status | Single | + + + | Protestant Affiliation | Unknown | + + + | Race | White | + + + | Ethnic Group | Not or | + + + Author + + + | Author | [facility] | + + + | Organization | [facility] | + + + | Address | Unknown | + + + | Phone | Unavailable | + + + Support + + +---------+ + | Name | Relationship | Address | Phone | + + +---------+ + | Declined | ECON | Unknown | Unavailable | + + +---------+ + Care Team Providers + +------+ + | Care Alignment Technician Name | Role | Phone | [...] + + + | Closed | | Occupational | | [facility] | | | | Therapy | | Epic Dept | [address] | | | | | | [address] | | | | | | | Mailcode: | | | | | | | [facility] | | | | | | [facility] | | | | | | | and Healing, | | | | | | | [address], | | | | | | | [address] | | | | | | | [place], [place] | | | | | | | [address] | | | | | | | Phone: | | | | | | | [phone] | | | | | | | Fax: | | | | | | | [phone] | +--------+--------+ + + + + Encounter Details +--------+---------+ + + + | Date | Type | Department | Care Team | Description | +--------+---------+ + + + | 07/02/ | Office | [facility] | Celeste Rudolph OT | Fibromyalgia | | 2016 | Visit | Therapy Services at | [address] | (Primary Dx) | | | | [address] | | | | | [address] | [place], [place] | | | | | Physician's | [address] | | | | | [address], [address] | | | | | | [place], [place] | | | | | | [address] | | | | | | [phone] | | | +--------+---------+ + + + [...] + + documented as of this encounter Progress Notes Celeste Rudolph, OT - 07/02/2016 2:00 PM PST Start of care: 07/02/2016 Date of onset: 07/02/2016 Attending Practitioner: Sanjay Guy Referring Practitioner: Airam OLIVEROS Primary/Referral Diagnosis/ICD-9: Fibromyalgia M79.7 729.1 Insurance: Payor: [employer] [place] [employer] / Plan: Quarterly OUT OF STATE / Product Type: PPO / Service period from: 07/02/2016 to: 09/30/2016 Number visits used/authorized: 07/27 [facility] OCCUPATIONAL THERAPY EVALUATION: FIBROMYALGIA SUBJECTIVE: History of Presenting Problem: Brian De La Torre is a 41 y.o. female who presents with the following complaints: fatigue, pain, dizziness, work problems, depression, sleep problems, stiffness, restless legs, decreased endurance, headaches, hypersensitivity to light, noise a nd smells and/or medications and vision problems. Brian De La Torre has been feeling sympto ms for past 2 years, with a diagnosis in chronic migraines. Also of note, she has an [facility] history of migraines and has cognitive deficits when having a headache. Past Medical History: Brian has no past medical history on file. Meds: No current outpatient prescriptions on file prior to visit. No current facility-administered medications on file prior to visit. Pain Rating (0-10): Patient reports a pain level of today. 6/10- in the right DIP of thumb. Living situation: rBian currently lives with a spouse and children, ages 14 and 16 (boys). Family is helpful around the house. 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 Household tasks: Pain and fatigue does limits ability to do home tasks and ADLs. Difficul ty with: litter boxes- the bending over can lead to dizziness. Home Setup: Manufactured home, 4 steps to enter (+ railing). Bathroom with tub and has no trouble getting in/out. 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 Increased pain with work: NA Brian comes home unable to do tasks: NA Leisure activities: Camping- goes to [employer] and picks [employer]. Coping Strategies: Playing with kittens, taking a bath Cognition: Brian reports difficulty with cognition only when she's having a migraine. She writes things down in calendar, sets alarms on her phone. Cognitive changes are reported as: mildly problematic in daily life. Fatigue: Fluctuating and frequently present. Functional status prior to onset: Independent and active in home and community without impa ct of cognitive issues, pain or fatigue. Brian's goal: is to learn how to manage pain and/or fatigue independently. Learn to manage cognitive changes. Other patient goals include: To decrease migraines OBJECTIVE: Dominate Hand: Right Strength: WNL ROM: WNL Coordination: WFL ADL status: IND. Equipment: None. Treatment: Evaluation completed, goals collaboratively established Instructed Brian De La Torre in energy conservation and pacing strategies within the contex t of daily routine. Recommended activity modifications and home setup to maximize ease, amaro it pain and fatigue. Also discussed stress management, coping skills. Reviewed cognitive c ompensatory strategies to better manage cognitive deficits. Provided recommendations for moon nd pain and strategies to minimize right thumb pain. Recommend that patient follow up with hand patient closer to home. ASSESSMENT: 729.1 Myalgia Brian De La Torre is a 41 year-old female who presents for Occupational Therapy evaluation at the fibromyalgia clinic today. Upon evaluation, Brian endorses the above-listed symptom s, which interferes with her success with ADL, IADL and household management, work and leisu re activities. She has been able to remain independent with self care at home, and has been modifying leisure activities, but she experiences significant difficulties and limited succ ess. While fatigue and pain have been fluctuating, Brian experiences migraines and dizzine ss which is the most limiting for her. She was receptive to education regarding energy cons ervation and pacing strategies within the context of her daily routine, and we discussed met hods for addressing cognitive deficits as well. She has been able to employ coping strategi es and stress management to navigate daily life. Brian would benefit from hand therapy ref erral to address pain in right thumb and was instructed on how to obtain referral if she cho oses. Long-Term Goals, as discussed with Brian Timmy Joy, due end of session: Patient will demonstrate understanding of energy conservation and pacing strategies and how to implement into daily routine. (Goal met 07/02/2016). Patient will demonstrate understanding of work, leisure, and IADL balance in preparation fo r managing energy throughout week of activity. (Goal met 07/02/2016). PLAN: Follow up with hand therapy closer to home Treatment began: 1430 Treatment ended: 1500 OT Evaluation Celeste Rudolph OT [facility] AT [address] Mailcode: Op19 [place] [address] documented in this enco unter Plan of Treatment Not on filedocumented as of this encounter Procedures + +--------+ + + + | Procedure Name | Priori | Date/Time | Associated Diagnosis | Comments | | | ty | | | | + +--------+ + + + | [place] OCCUPATIONAL | Routin | 07/02/2016 | Fibromyalgia | | | THERAPY EVALUATION | e | 4:00 PM | | | | | | PST | | | + +--------+ + + + documented in this encounter Visit Diagnoses + + | Diagnosis | + + | Fibromyalgia - Primary Mylagia and myositis, unspecified | + + documented in this encounter"
--- OUTSIDE RECORDS SUMMARY | ~2020-01-31 | XMS | Encounter Summary ---
Demographics + + + | Address | [address] | | | [place] [address] | + + + | Home Phone | | + + + | Preferred Language | Unknown | + + + | Marital Status | Single | + + + | Gnosticism Affiliation | Unknown | + + + | Race | White | + + + | Ethnic Group | Not or | + + + Author + + + | Author | [facility] | + + + | Organization | [facility] | + + + | Address | Unknown | + + + | Phone | Unavailable | + + + Support + + +---------+ + | Name | Relationship | Address | Phone | + + +---------+ + | Declined | ECON | Unknown | Unavailable | + + +---------+ + Care Team Providers + +------+ + | Care Sat Instructor Name | Role | Phone | + +------+ + | Sanjay Guy MD | PCP | | + +------+ + Encounter Details +--------+ + + + + | Date | Type | Department | Care Team | Description | +--------+ + + + + | 03/25/ | Document-Sc | Health Information | Unknown . | | | 2017 | anned | Services [id number] | | | | | | [address] | | | | | | Mailcode: [id number] | | | | | | [facility] | | | | | | [place], [place] | | | | | | [address] | | | | | | [phone] | | | +--------+ + + + [...]
--- OUTSIDE RECORDS SUMMARY | ~2020-01-31 | XMS | Encounter Summary ---
Demographics + + + | Address | [address] | | | [place] [address] | + + + | Home Phone | | + + + | Preferred Language | Unknown | + + + | Marital Status | Single | + + + | Religion Affiliation | Unknown | + + + | Race | White | + + + | Ethnic Group | Not or | + + + Author + + + | Author | [facility] | + + + | Organization | [facility] | + + + | Address | Unknown | + + + | Phone | Unavailable | + + + Support + + +---------+ + | Name | Relationship | Address | Phone | + + +---------+ + | Declined | ECON | Unknown | Unavailable | + + +---------+ + Care Team Providers + +------+ + | Care Business Improvement Manager Name | Role | Phone | + +------+ + | Sanjay Guy MD | PCP | | + +------+ + Encounter Details +--------+ + + + + | Date | Type | Department | Care Team | Description | +--------+ + + + + | 02/05/ | Document-Sc | Health Information | Unknown . | | | 2016 | anned | Services [id number] | | | | | | [address] | | | | | | Mailcode: [id number] | | | | | | [facility] | | | | | | [place], [place] | | | | | | [address] | | | | | | [phone] | | | +--------+ + + + [...]
--- OUTSIDE RECORDS SUMMARY | ~2020-01-31 | XMS | Encounter Summary ---
Demographics + + + | Address | [address] | | | [place] [address] | + + + | Home Phone | | + + + | Preferred Language | Unknown | + + + | Marital Status | Single | + + + | Spiritism Affiliation | Unknown | + + + | Race | White | + + + | Ethnic Group | Not or | + + + Author + + + | Author | [facility] | + + + | Organization | [facility] | + + + | Address | Unknown | + + + | Phone | Unavailable | + + + Support + + +---------+ + | Name | Relationship | Address | Phone | + + +---------+ + | Declined | ECON | Unknown | Unavailable | + + +---------+ + Care Team Providers + +------+ + | Care Inspector Balance Bridge Name | Role | Phone | + [...] | | | | Physician's | [address] [place], | | | | | | [place], | [place] [address] | | | | | | 4th floor | Phone: | | | | | | [place], [place] | [phone] | | | | | | [address] | Fax: | | | | | | Phone: | [phone] | | | | | | [phone] | | | | | | | Fax: | | | | | | | [phone] | | +--------+--------+ + + + + Encounter Details +--------+---------+ + + + | Date | Type | Department | Care Team | Description | +--------+---------+ + + + | 07/02/ | Office | Rehabilitation | Esther Mckenzie L, | Fibromyalgia | | 2016 | Visit | Services at [facility] | MS,PT [address] | (Primary Dx) | | | | [address] | [facility] | | | | | Loop Physician's | [place] [address] | | | | | [place], 4th floor | [phone] | | | | | [place], [place] | | | | | | [address] | | | | | | [phone] | | | +--------+---------+ + + + [...] for tilt table test with Esther and parts specialist for 90 minutes. Consider tilt table [...] 24 hours in advance, either by using [employer] to cancel, or calling us at [phone]. Appointments cancelled with less than 24 hours notice are considered missed appointments . If two or more appointments are missed, you have the option to postpone your care to a t johnnie that works better for you, or move to same day scheduling. I look forward to working with you in your rehabilitation! ESTHER MCKENZIE MS, PT Physical Therapist [facility] REHABILITATION SERVICES AND HAND THERAPY [address] [facility][1] And [facility], [address] [place] [address] + documented in this encounter Progress Notes Esther Mckenzie MS,PT - 07/02/2016 1:30 PM PSTFormatting of this note might be different f rom the original. Start of care: 07/02/2016 Date of onset: Date of Onset: 06/26/16 Referring/Attending Practitioner to Fibromyalgia Clinic: Sanjay Guy MD . Rheumatology Referring/Attending ProviderAiram Cary NP. Primary/Referral Diagnosis/ICD-9: ICD-10-CM ICD-9-CM 1. Fibromyalgia M79.7 729.1 Fibromyalgia/Myofascial Pain/729.1/ Rule out Fibromyalgia/Myofascial pain Insurance: Payor: [employer] / Plan: BCBS OUT OF STATE / Product Type: PPO / Date of : 1975 Service period from: 07/02/2016 to: 07/01/17 Number visits used/authorized: 1 [facility] PHYSICAL THERAPY INITIAL EVALUATION Brian De La Torre MR# [id number] SUBJECTIVE: History of Presenting Problem: Brian De [...] Type: single level house. Activity Level/Exercise: walking. Brian currently has access to the following equipment: [...] status. ESTHER MCKENZIE MS, PT Physical Therapist [facility], [address] [facility] REHABILITATION SERVICES AND HAND THERAPY [address] [place] [address] And [facility], [address] [place] [address] documented in this encounter Plan of Treatment Not on filedocumented as of this encounter Procedures + +--------+ + + + | Procedure Name | Priori | Date/Time | Associated Diagnosis | Comments | | | ty | | | | + +--------+ + + + | [facility] PHYS THERAPY | Routin | 07/02/2016 | [...]
--- OUTSIDE RECORDS SUMMARY | ~2020-01-31 | XMS | Encounter Summary ---
Demographics + + + | Address | [address] | | | [place] [address] | + + + | Home Phone | | + + + | Preferred Language | Unknown | + + + | Marital Status | Single | + + + | Yarsanism Affiliation | Unknown | + + + | Race | White | + + + | Ethnic Group | Not or | + + + Author + + + | Author | [facility] | + + + | Organization | [facility] | + + + | Address | Unknown | + + + | Phone | Unavailable | + + + Support + + +---------+ + | Name | Relationship | Address | Phone | + + +---------+ + | Declined | ECON | Unknown | Unavailable | + + +---------+ + Care Team Providers + +------+ + | Care Sous Chef Name | Role | Phone | + +------+ + | Sanjay Guy MD | PCP | | + +------+ + Reason for Referral Occupational Therapy (Routine) +--------+--------+ + + + + | Status | Reason | Specialty | Diagnoses / | Referred By | Referred To | | | | | Procedures | Contact | Contact | +--------+--------+ + + + + | Closed | | Occupational | Diagnoses | | [facility] | | | | Therapy | | Luis Daniel, | [address] | | | | | Fibromyalgia | Airam Alves | Shantel | | | | | Procedures | OCCUP THERAPIST [address] | Mailcode: | | | | | | [address] | [facility] | | | | | OCCUPATIONAL | [address] | for Health | | | | | THERAPY | [place], [place] | and Healing, | | | | | REFERRAL | [address] | [address], | | | | | | Phone: | [address] | | | | | | [phone] | [facility] [place] | | | | | | Fax: | [address] | | | | | | [phone] | Phone: | | | | | | | [phone] | | | | | | | Fax: | | | | | | | [phone] | +--------+--------+ + + + + Physical Therapy (Routine) +--------+--------+ + + + + | Status | Reason | Specialty | Diagnoses / | Referred By | Referred To | | | | | Procedures | Contact | Contact | +--------+--------+ + + + + | Closed | | Physical | Diagnoses | | Anni [facility] | | | | Therapy | | Luis Daniel, | [address] | | | | | Fibromyalgia | Airam Joselyn, | Ave | | | | | Procedures | OCCUP THERAPIST [address] | Mailcode: | | | | | PHYSICAL | [address] | [facility] | | | | | THERAPY | Della Olguin | for Health | | | | | REFERRAL | [place], [place] | and Healing, | | | | | | [address] | [address], | | | | | | Phone: | [address] Floor | | | | | | [phone] | [place], [place] | | | | | | Fax: | [address] | | | | | | [phone] | Phone: | | | | | | | [phone] | | | | | | | Fax: | | | | | | | [phone] | +--------+--------+ + + + + Reason for Visit + + + | Reason | Comments | + + + | Fibromyalgia | | + + + | Education | | + + + | New patient | | | consultation | | + + + Consultation (Routine) +--------+--------+ + + + + | Status | Reason | Specialty | Diagnoses / | Referred By | Referred To | | | | | Procedures | Contact | Contact | +--------+--------+ + + + + | Closed | | Rheumatology | Diagnoses | Brooks, | Rhm | | | | | Joint pain, | Sanjay B, | Fibromyalgia | | | | | mildly | MD [address] | | | | | elevated CRP | [place] | [address] | | | | | and ESR | [address] | Physician's | | | | | | [place], | [place], | | | | | | [place] [address] | 4th floor | | | | | | Phone: | [place], [place] | | | | | | [phone] | [address] | | | | | | Fax: | Phone: | | | | | | [phone] | [phone] | | | | | | | Fax: | | | | | | | [phone] | +--------+--------+ + + + + Encounter Details +--------+---------+ + + + | Date | Type | Department | Care Team | Description | +--------+---------+ + + + | 07/02/ | Office | Rheumatology at | Airam Cary | Fibromyalgia | | 2016 | Visit | Physicians DOMO Mccullough [address] | (Primary Dx) | | | | [address] | [address] | | | | | Loop Physician's | [place], [place] | | | | | Pavilion, 4th floor | [address] | | | | | [place], [place] | [phone] | | | | | [address] | | | | | | [phone] | | | +--------+---------+ + + + [...] + + + documented in this encounter Patient Instructions Patient Instructions Airam Cary, DOMO - 07/02/2016 12:30 PM PST It is asked that your primary care provider follow through with any recommendations discuss ed today including but not limited to or inclusive of new medications or changes in current medications and suggested referrals. Please call your PCP (primary care provider) to schedule an appointment to specifically dis cuss this consultation. Recommendations: WEBSITES: Www.[employer] ([facility] research and information regarding patient education seminars [facility] [employer]) ` [email or web address] BOOKS: "Fibromyalgia: Woman's Tool Kit" by Sara Rosado and Dane Ferris. "Figuring out Fibromyalgia" by Yodit Hair. Fibromyalgia: After Your Visit Your Care Instructions Fibromyalgia is a painful condition that is not completely understood by medical experts. T he cause of fibromyalgia is not known. It can make you feel tired and ache all over. It caus es tender spots at specific points of the body that hurt only when you press on them. You ma y have trouble sleeping, as well as other symptoms. These problems can upset your work and h ome life. Symptoms tend to come and go, although they may never go away completely. Fibromyalgia does not harm your muscles, joints, or organs. Follow-up care is a sherman part of your treatment and safety. Be sure to make and go to all ap pointments, and call your doctor if you are having problems. It s also a good idea to know your test results and keep a list of the medicines you take. How can you care for yourself at home? Exercise often. Walk, swim, or bike to help with pain and sleep problems and to make you feel better. Try to get a good night's sleep. Go to bed and get up at the same time each day, whether you feel rested or not. Make sure you have a good mattress and pillow. Reduce stress. Avoid things that cause you stress, if you can. If not, work at making th em less stressful. Learn to use biofeedback, guided imagery, meditation, or other methods to relax. Make healthy changes. Eat a balanced diet, quit smoking, and limit alcohol and caffeine. Use a heating pad set on low or take warm baths or showers for pain. Using cold packs fo r up to 20 minutes at a time can also relieve pain. Put a thin cloth between the cold pack a nd your skin. A gentle massage might help too. Take your medicines exactly as prescribed. Call your doctor if you think you are having a problem with your medicine. Certain types of antidepressants may be used to improve sleep, relieve pain, and, in jaqui e cases, treat depression. If your doctor prescribes a medicine for fibromyalgia, be sure to take it exactly as prescribed. Antidepressant medicines can sometimes help with fibromyalgia even if you are not depres sed. If your doctor prescribes a medicine for fibromyalgia, be sure to take it exactly as pr escribed. Learn about fibromyalgia. This makes coping easier. Then, take an active role in your tr eatment. Think about joining a support group with others who have fibromyalgia to learn more and get support. When should you call for help? Watch closely for changes in your health, and be sure to contact your doctor if: You feel sad, helpless, or hopeless; lose interest in things you used to enjoy; or have other symptoms of depression. Your fibromyalgia symptoms get worse. Where can you learn more? To learn more about "Fibromyalgia: After Your Visit", log into your [employer] account at [email or web address] :[email or web address]. You can enter V003 in the [employer] Library" search box. Not on [employer]? Review the [employer] section of your After Visit Summary for directions on ho w to sign up. [id number] [employer]. Care instructions adapted under license by [facility]. This care instruction is for use with your licensed healthcar e professional. If you have questions about a medical condition or this instruction, always ask your healthcare professional. [employer] disclaims any warranty or liabili ty for your use of this information. Content Version: 9.9.266335; Last Revised: December 10, 2012 "From the brain alone arise our pleasures, laughter, and jests, as well as our sorrows, daniel n, and griefs." Hippocrates documented in this encounter Progress Notes Airam Cary FNP - 07/02/2016 12:30 PM PSTFormatting of this note might be differe nt from the original. New Fibromyalgia Patient Consult: This patient was referred by: Sanjay Guy MD [facility] [address] [place] [address] [place] [address], . Your patient, Ms. De La Torre, a 41 y.o. female, was evaluated in the [facility] Fibromyalgia Clin ic on July 02, 2016. This evaluation consisted of a fibromyalgia focused history and amaro ited physical examination, psychosocial assessment with focus on group education (60 min) an d counselling regarding diagnosis, treatment options, self-care measures, expectations and p rognosis. Travelling from [place]. History of Current Problem: Ms. De La Torre has previously not been diagnosed with fibromyalgia. She does not have other known rheumatic disease. Symptoms began 2 years ago with right foot pain- evolved to migratory. She does have widespread and migratory pain. She describes her pain as "thumb feels like it will fall off- pain is deep in body and deep in bones" The worst of all her pain is right 1st PIP. Her pain is improved by very hot bath and aggravated by do repetitive activity. She rates her average pain at 8.5/10. She feels chronically stiff but denies red/warm or swollen joints. ROS: Grossly+ across most systems c/w FMS. Please see scanned intake document. Detail reviewed face to face w/ patient. Relevant ROS detailed in HPI. Allergies: Bee sting [hymenoptera allergenic extract] and Iodine Current Medications: No current outpatient prescriptions on file. No current facility-administered medications for this visit. Social History: Brian reports that she has quit smoking. She does not have any smokeless tobacco history on file. Work History: [employer]. Medico-Legal: No pending litigation. Sleep History: Describes non-restorative sleep. Very interrupted sleep. Feels like she's not able to stay asleep d/t polyuria. Feels like she's been hit by a truck- doesn't feel li ke she's been to sleep. Current Exercise: Walks 15 min daily. Past Medications and Treatments/ Response: NSAIDs +naproxen for migraines Tramadol NA Duloxetine -nausea Milnacipran NA Pregabalin NA Gabapentin -uses for neuropathy in feet- uses at night Muscle relaxants -cyclobenzaprine; +clonazepam Steroids +/-uses regularly for headache- every 3 days Injections +occipital nerve block (costs $500) PT -did twice for migraines Massage NA Manipulation +/- for hip Acupuncture NA TENS unit +TMJ Exercise +/-depends on the day Pain psychology/ education NA Migraine specialist +for acute migraine but no prophylaxis Physical Examination: Vital Signs: BP 101/70 | Pulse 80 | Wt 84 kg (185 lb 3.2 oz) Pain Score: Gen: Well nourished, well developed, in NAD HEENT: PERRLA, EOMI, O/P clear, no facial rash or alopecia Neck: supple, no lymphadenopathy, FROM Lungs: clear to ausculation bilaterally CVS: S1S2, RRR, no murmurs, rubs or gallops Abd: normal BS, soft, NT, ND Ext: no clubbing, cyanosis or edema M/S: no synovitis; generalized tenderness w/o deformity or limitation in ROM Skin: multiple tattoos Neuro: CN II-XII grossly intact Diagnosis: 1. Fibromyalgia 2. Non-Restorative Sleep Recommendations: 1. Ms. De La Torre does meet criteria for diagnosis with fibromyalgia. she has a widespread pain index (WPI) of 9 and a symptom severity scale (SS) rating of 6. The 2010 [place] of Rheumatology (ACR) criteria for diagnosis scores a WPI of 7 or greater and a SS of 5 positively as well as a WPI of 3 and a SS of 9 or greater. She suffers from moderate fibromy algia pain and dysfunction. She was given verbal and written information on fibromyalgia at the time of evaluation. The web site www.myalgia.Physician Practice [employer] is also an excellent resource for sarita ent information. The research to date is very clear that fibromyalgia is a heterogeneous dis order that can only be consistently classified as mild, moderate or severe. Understanding t hat fibromyalgia with its array of symptoms is now thought to be the result of changes in th e central nervous system a central sensitivity syndrome. The chronic pain and associated s ymptoms may be the result of a final common pathway seen in other processes such as irritabl e bowel syndrome, interstitial cystitis or endometriosis. The theory is that with constant p ainful stimuli peripheral pain generators, the neurotransmitters and other bioactive molec ules in the brain and spinal cord change, resulting in increased sensitivity to sensory inpu t and less ability to tune out stimuli, it has been dubbed a central sensitivity syndrome . We impressed upon her that fibromyalgia interventions that are currently working may f ail to work in the future, interventions that work for some do not work for people with fibr omyalgia, and that there is no single treatment that will successfully alleviate her symptom s. Ideally, she needs a multimodal approach which will include physical and occupational the rapy, psychotherapy, and medications. Alternative therapies have worked for some, those most helpful have included acupuncture and massage. I would not recommend any pharmacotherapy d ue to potential to complicate and/or aggravate her underlying headache syndrome. 2. Many patients with fibromyalgia additionally suffer from treatable sleep disorders. Imp roving sleep quality can greatly improve their overall pain burden. Given Ms. Wheatley yuli history of non-restorative sleep and daily issues with fatigue I recommend referral for polysomnography evaluating for obstructive sleep apnea and well as upper airway resistance s yndrome (UARS) which is common in patients with fibromyalgia and often goes undiagnosed. 3. For all patients living with fibromyalgia, counselling is strongly recommended, both for learning to manage life with chronic pain as well as her other stated life stressors. Cogn itive behavioral therapy (CBT) or acceptance and commitment therapy (ACT) have been shown to be effective for helping patients cope with chronic landeros and fatigue. 4. Other treatment modalities that could be considered include a trial of trigger point inj ections. Trigger point injections of the FM tender points with local anesthetic agents such as lidocaine or procaine are found to be useful in controlling the pain. Corticosteroids a re not used in trigger point injections. We suggest doing 3 to 4 [facility] . Trigger point injections give symptomatic relief in pain, lasting for 3 weeks to 3 month s. 5. Fibromyalgia patients should participate in exercise program daily. We suggest starting slowly with stretching exercises. We also suggest yoga, water aerobics, ida chi as good fo woody of exercise. 6. Ms. De La Torre was informed, I will no longer be seeing patients in follow-up. I will o nly be performing new patient consultation or provider specific referral for re-evaluation. DOMO [facility] RHEUMATOLOGY AT [address] Mailcode: [id number] [place] [address] Display Progress Note in [employer]: No documented in t his encounter Plan of Treatment Not on filedocumented as of this encounter Visit Diagnoses + + | Diagnosis | + + | Fibromyalgia - Primary Mylagia and myositis, unspecified | + + documented in this encounter
--- OUTSIDE RECORDS SUMMARY | ~2020-01-31 | XMS | Encounter Summary ---
Demographics + + + | Address | [address] | | | [place] [address] | + + + | Home Phone | | + + + | Preferred Language | Unknown | + + + | Marital Status | Single | + + + | Jehovah'S Witness Affiliation | Unknown | + + + | Race | White | + + + | Ethnic Group | Not or | + + + Author + + + | Author | [facility] | + + + | Organization | [facility] | + + + | Address | Unknown | + + + | Phone | Unavailable | + + + Support + + +---------+ + | Name | Relationship | Address | Phone | + + +---------+ + | Declined | ECON | Unknown | Unavailable | + + +---------+ + Care Team Providers + +------+ + | Care Product Transfer Pumper Name | Role | Phone | + [...] | | | | | | | [place], [place] | | | | | | | [address] | | | | | | | Phone: | | | | | | | [phone] | | | | | | | Fax: | | | | | | | [phone] | +--------+--------+ + + + + Encounter [...] Dx) | | | | Barbara Jansen [address] | | | | | [address] | [place], [place] | | | | | Physician's | [address] | | | | | [place], 4th Floor | | | | | | [place], [place] | | | | | | [address] | | | | | | [phone] | | | +--------+---------+ + + + [...] Primary/Referral Diagnosis/ICD-9: Fibromyalgia M79.7 729.1 Insurance: Payor: [email or web address] / Plan: [employer] OUT OF STATE / Product Type: PPO / Service period from: 07/02/2016 to: 09/30/2016 Number visits used/authorized: 07/27 [facility] OCCUPATIONAL THERAPY EVALUATION: FIBROMYALGIA SUBJECTIVE: History of [...] migraines. Also of note, she has an [facility] history of migraines and has cognitive [...] for this). 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 Increased pain with work: NA Brian comes home unable to do tasks: NA Leisure activities: Camping- goes to [employer] and picks [employer]. Coping Strategies: Playing with kittens, taking [...] Evaluation Celeste Rudolph OT REHABILITATION SERVICES AT [address] Mailcode: Op19 [place] [address] documented in this enco unter [...]
--- OUTSIDE RECORDS SUMMARY | ~2020-01-31 | XMS | Encounter Summary ---
Demographics + + + | Address | [address] | | | [place] [address] | + + + | Home Phone | | + + + | Preferred Language | Unknown | + + + | Marital Status | Single | + + + | Mandaen Affiliation | Unknown | + + + | Race | White | + + + | Ethnic Group | Not or | + + + Author + + + | Author | [facility] | + + + | Organization | [facility] | + + + | Address | Unknown | + + + | Phone | Unavailable | + + + Support + + +---------+ + | Name | Relationship | Address | Phone | + + +---------+ + | Declined | ECON | Unknown | Unavailable | + + +---------+ + Care Team Providers + +------+ + | Care Aircraft Cleaner Name | Role | Phone | + +------+ + | Sanjay Guy MD | PCP | | + +------+ + Encounter Details +--------+ + + + + | Date | Type | Department | Care Team | Description | +--------+ + + + + | 02/05/ | Document-Sc | Health Information | Unknown . | | | 2016 | anned | Services [id number] | | | | | | [address] | | | | | | Mailcode: [id number] | | | | | | [facility] | | | | | | [place], [place] | | | | | | [address] | | | | | | [phone] | | | +--------+ + + + [...]
--- OUTSIDE RECORDS SUMMARY | ~2020-01-31 | XMS | Encounter Summary ---
Demographics + + + | Address | [address] | | | [place] [address] | + + + | Home Phone | | + + + | Preferred Language | Unknown | + + + | Marital Status | Single | + + + | Episcopalian Affiliation | Unknown | + + + [...] Team Providers + +------+ + | Care Assistant Professor Of Spanish Name | Role | Phone | + +------+ + | Sanjay Guy MD | PCP | | + +------+ + Reason for Visit + + + | Reason | Comments | + + + | Follow-up visit | | + + + Encounter Details +--------+ + + + + | Date | Type | Department | Care Team | Description | +--------+ + + + + | 07/14/ | Telephone | Rheumatology at | [facility] | Follow-up visit | | 2015 | | DOMO Juarez [address] | | | | | [address] | [facility] | | | | | Loop Physician's | [place], [place] | | | | | [place], [address] [place] [address] | [address] | | | | | [place], [place] | [phone] | | | | | [address] | | | | | | [phone] | | | +--------+ + + + [...]
--- OUTSIDE RECORDS SUMMARY | ~2020-01-31 | XMS | Encounter Summary ---
Demographics + + + | Address | [address] | | | [place] [address] | + + + | Home Phone | | + + + | Preferred Language | Unknown | + + + | Marital Status | Single | + + + | Muslim Affiliation | Unknown | + + + | Race | White | + + + | Ethnic Group | Not or | + + + Author + + + | Author | [facility] | + + + | Organization | [facility] | + + + | Address | Unknown | + + + | Phone | Unavailable | + + + Support + + +---------+ + | Name | Relationship | Address | Phone | + + +---------+ + | Declined | ECON | Unknown | Unavailable | + + +---------+ + Care Team Providers + +------+ + | Care Clinical Pathologist Name | Role | Phone | + [...] [address] | | | | | [address] | [facility] | | | | | Loop Physician's | [place], [place] | | | | | [place], [address] [place] [address] | [address] | | | | | [place], [place] | [phone] | | | | | [address] | | | | | | [phone] | | | +--------+ + + + [...]
--- OUTSIDE RECORDS SUMMARY | ~2020-01-31 | XMS | Clinical Summary ---
Demographics + + + | Address | [address] | | | [place] [address] | + + + | Home Phone | | + + + | Preferred Language | Unknown | + + + | Marital Status | Single | + + + | Taoism Affiliation | Unknown | + + + [...] Team Providers + +------+ + | Care Functional Director Name | Role | Phone | + +------+ + | Sanjay Guy MD | PCP | | + +------+ + Source Comments TRUMAN is fully live on both [facility] Ambulatory and [facility] InPatient.[facility] Allergies + + + + + + [...] | BCBS | xxxxxxxxxxx | 07/27/19 | [phone] | [address] | PPO | | SHIELD | OUT OF | x | 14-Pre | 8 | [address] | | | | STATE | | sent | | [place], | | | | | | | | [place] | | | | | | | | [address] | | + +--------+ +--------+ + +------+ [...] | 1975 | [phone] | [place] [address] | | | [place] | | | 6 (Home) | | + +--------+ +--------+ + +"
--- OUTSIDE RECORDS SUMMARY | ~2020-01-31 | XMS | Encounter Summary ---
Demographics + + + | Address | [address] | | | [place] [address] | + + + | Home Phone | | + + + | Preferred Language | Unknown | + + + | Marital Status | Single | + + + | Faith Affiliation | Unknown | + + + | Race | White | + + + | Ethnic Group | Not or | + + + Author + + + | Author | [facility] | + + + | Organization | [facility] | + + + | Address | Unknown | + + + | Phone | Unavailable | + + + Support + + +---------+ + | Name | Relationship | Address | Phone | + + +---------+ + | Declined | ECON | Unknown | Unavailable | + + +---------+ + Care Team Providers + +------+ + | Care Industrial Maintenance Instructor Name | Role | Phone | [...] | | | | Physician's | [address] [place], | | | | | | [place] | [place] [address] | | | | | | 4th floor | Phone: | | | | | | [place], [place] | [phone] | | | | | | [address] | Fax: | | | | | | Phone: | [phone] | | | | | | [phone] | | | | | | | Fax: | | | | | | | [phone] | | +--------+--------+ + + + + Encounter Details +--------+---------+ + + + | Date | Type | Department | Care Team | Description | +--------+---------+ + + + | 07/02/ | Office | Rehabilitation | Esther Mckenzie L, | Fibromyalgia | | 2016 | Visit | Services at [facility] | MS,PT [address] | (Primary Dx) | | | | [address] | [facility] | | | | | Loop Physician's | [place] [address] | | | | | [place], 4th floor | [phone] | | | | | [place], [place] | | | | | | [address] | | | | | | [phone] | | | +--------+---------+ + + + [...] for tilt table test with Esther and document specialist for 90 minutes. Consider tilt table [...] 24 hours in advance, either by using [employer] to cancel, or calling us at [phone]. Appointments cancelled with less than 24 hours notice are considered missed appointments . If two or more appointments are missed, you have the option to postpone your care to a t johnnie that works better for you, or move to same day scheduling. I look forward to working with you in your rehabilitation! ESTHER MCKENZIE MS, PT Physical Therapist [facility] REHABILITATION SERVICES AND HAND THERAPY [address] [facility], [address] [place] [address] + documented in this encounter Progress [...] Pain/729.1/ Rule out Fibromyalgia/Myofascial pain Insurance: Payor: [employer] / Plan: BCBS OUT OF STATE / Product Type: PPO / Date of : 1975 Service period from: 07/02/2016 to: 07/01/17 Number visits used/authorized: 1 [facility] PHYSICAL THERAPY INITIAL EVALUATION Brian De La Torre MR# [id number] SUBJECTIVE: History of Presenting Problem: Brian De [...] status. ESTHER MCKENZIE MS, PT Physical Therapist [facility], 8th [facility] REHABILITATION SERVICES AND HAND THERAPY [address] [place] [address] And [facility], [address] [place] [address] documented in this encounter Plan of Treatment [...]
--- OUTSIDE RECORDS SUMMARY | ~2020-01-31 | XMS | Encounter Summary ---
Demographics + + + | Address | [address] | | | [place] [address] | + + + | Home Phone [...] + + + | Author | [facility] | + + + | Organization | [facility] | + + + | Address | Unknown | + + + | Phone | Unavailable | + + + Support + + +---------+ + | Name | Relationship | Address | Phone | + + +---------+ + | Declined | ECON | Unknown | Unavailable | + + +---------+ + Care Team Providers + +------+ + | Care Optical Goods Worker Name | Role | Phone | [...] | | | | | Procedures | EQUIPMENT VALIDATION ENGINEER [address] | Mailcode: | | | | | | [address] | [facility] | | | | | OCCUPATIONAL | [place] [address] | for Health | | | | | THERAPY | [place], [place] | and Healing, | | | | | REFERRAL | [address] | [address], | | | | | | Phone: | [address] Floor | | | | | | [phone] | [facility] [place] | | | | | | Fax: | [address] | | | | | | [phone] | Phone: | | | | | | | [phone] | | | | | | | Fax: | | | | | | | [phone] | +--------+--------+ + + + + Physical [...] | | | | | Procedures | EQUIPMENT VALIDATION ENGINEER [address] | Mailcode: | | | | | PHYSICAL | [address] | [facility] | | | | | THERAPY | [address]ella [address] | for Health | | | | | REFERRAL | [place], [place] | and Healing, | | | | | | [address] | [address], | | | | | | Phone: | [address] Floor | | | | | | [phone] | [place], [place] | | | | | | Fax: | [address] | | | | | | [phone] | Phone: | | | | | | | [phone] | | | | | | | Fax: | | | | | | | [phone] | +--------+--------+ + + + + Reason [...] | | | | elevated CRP | [place] | [address] | | | | | and ESR | [address] | Physician's | | | | | | [place], | [place], | | | | | | [place] [address] | 4th floor | | | | | | Phone: | [place], [place] | | | | | | [phone] | [address] | | | | | | Fax: | Phone: | | | | | | [phone] | [phone] | | | | | | | Fax: | | | | | | | [phone] | +--------+--------+ + + + + Encounter Details +--------+---------+ + + + | Date | Type | Department | Care Team | Description | +--------+---------+ + + + | 07/02/ | Office | Rheumatology at | [facility] | Fibromyalgia | | 2016 | Visit | Physicians DOMO Mccullough [address] | (Primary Dx) | | | | [address] | [address] | | | | | Loop Physician's | [place], [place] | | | | | [address], 4th floor | [address] | | | | | [place], [place] | [phone] | | | | | [address] | | | | | | [phone] | | | +--------+---------+ + + + [...] specifically dis cuss this consultation. Recommendations: WEBSITES: Www.[email or web address] ([facility] research and information regarding patient education seminars [facility] [employer]) ` Www.[email or web address] BOOKS: "Fibromyalgia: Woman's Tool Kit" by Sara Rosaod and Dane Ferris. "Figuring out Fibromyalgia" by [...] "Fibromyalgia: After Your Visit", log into your [employer] account at http :[email or web address]. You can enter V003 in the [employer] Library" search box. Not on [employer]? Review the Asure Software[employer] section of your After Visit Summary for directions on ho w to sign up. [id number] [employer]. Care instructions adapted under license by [facility]. This care instruction is for use with your licensed healthcar e professional. If you have questions about a medical condition or this instruction, always ask your healthcare professional. [employer] disclaims any warranty or liabili ty for your use of this information. Content Version: 9.9.200849; Last Revised: December 10, 2012 "From the brain alone arise our pleasures, laughter, and jests, as well as our sorrows, daniel n, and griefs." Hippocrates documented in this encounter Progress Notes [facility] Cary FNP - 07/02/2016 12:30 PM PSTFormatting of this note might be differe nt from the original. New Fibromyalgia Patient Consult: This patient was referred by: Sanjay Guy MD [facility] MEDICINE [address] [place] [address] [place] [address], . Your patient, Ms. De La Torre, a 41 y.o. female, was evaluated in the [facility] Fibromyalgia Clin ic on July 02, 2016. This evaluation consisted of a fibromyalgia focused history and amaro ited physical examination, psychosocial assessment with focus on group education (60 min) an d counselling regarding diagnosis, treatment options, self-care measures, expectations and p rognosis. Travelling from [place]. History of Current Problem: Ms. De La [...] smokeless tobacco history on file. Work History: [employer]. Medico-Legal: No pending litigation. Sleep History: Describes [...] scale (SS) rating of 6. The 2010 [place] Tc ege of Rheumatology (ACR) criteria for diagnosis scores a WPI of 7 or greater and a SS of 5 positively as well as a WPI of 3 and a SS of 9 or greater. She suffers from moderate fibromy algia pain and dysfunction. She was given verbal and written information on fibromyalgia at the time of evaluation. The web site [email or web address] is also an excellent resource for sarita [...] 3 to 4 TP injections [facility] . Trigger point injections give symptomatic relief [...] referral for re-evaluation. DOMO [facility] RHEUMATOLOGY AT [address] Mailcode: [address] [place] [address] Display Progress Note in [employer]: No documented in t his encounter Plan of Treatment Not on filedocumented as of this encounter Visit Diagnoses + + | Diagnosis | + + | Fibromyalgia - Primary Mylagia and myositis, unspecified | + + documented in this encounter
--- OUTSIDE RECORDS SUMMARY | 2020-01-31 20:20 | XMS ---
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 Care History Medical/Surgical 05/24/2018 [facility] - PATIENT HAS NOT SEEN PCP DR HANSEN SINCE 06/24/2017. PATIENT HAS A LONG HISTORY OF CHRONIC HEADACHES/MIGRAINES. - PATIENT NEEDS TO FOLLOW UP WITH PCP AFTER ED VISIT. - PLEASE REFER PATIENT TO PCP OFFICE FOR CHRONIC CONDITIONS THAT ARE NON EMERGENT. E.D. VISIT COUNT (12 MO.) [address] [place] [address] TOTAL 5 NOTE: Visits indicate total known visits. ED/UCC VISIT TRACKING (12 MO.) 01/31/2020 20:16 [facility] [place] TYPE: Emergency COMPLAINT: - HEADACHE 12/06/2019 20:57 [facility] [place] TYPE: Emergency COMPLAINT: - MIGRAINE DIAGNOSES: - Allergy status to narcotic agent status - Migraine, unspecified, not intractable, without status migrai - Rheumatoid arthritis, unspecified - Other prison (current) drug therapy - Radiographic dye allergy status 09/01/2019 20:47 [facility] [place] TYPE: Emergency COMPLAINT: - HEADACHE DIAGNOSES: - Headache - Other truck terminal manager (current) drug therapy - Bee allergy status - Allergy status to narcotic agent status 04/09/2019 19:51 [facility] [place] TYPE: Emergency COMPLAINT: - FOOT PAIN/INJURY DIAGNOSES: - Striking against or struck by other objects, initial encounte - Allergy status to narcotic agent status - Contusion of right great toe without damage to nail, initial - Other prison (current) drug therapy - Pain in right [...] Other prison (current) drug therapy - Headache INPATIENT VISIT TRACKING (12 MO.) No inpatient visits to display in this time frame [email or web address]
== END 2020-02-01 01:25 | disposition home or self-care (01) ==
LOC: ED 20:16
DX: G43.909 Migraine, unspecified, not intractable, without status migrainosus (principal); M06.9 Rheumatoid arthritis, unspecified; Z88.5 Allergy status to narcotic agent; Z91.030 Bee allergy status; Z91.048 Other nonmedicinal substance allergy status; Z79.899 Other long term (current) drug therapy
CPT/HCPCS: 96374; 96375; 99283-25; J1200; J1885; J2765; J7030

== ENCOUNTER 2020-05-04 21:29 | Emergency (ER) | payer MEDICARE, OTHER ==
[~2020-05-04] VITALS: Ht 165.1 cm; Wt 89.5 kg
--- OUTSIDE RECORDS SUMMARY | ~2020-05-04 | XMS | Encounter Summary ---
Demographics + + + | Address | [address] | | | [place] [address] | + + + | Home Phone | | + + + | Preferred Language | Unknown | + + + | Marital Status | Unknown | + + + | Jainism Affiliation | Unknown | + + + | Race | White | + + + | Ethnic Group | Not or | + + + Author + + + | Author | [facility] | | | and [place] | + + + | Organization | [facility] | | | and [place] | + + + | Address | Unknown | + + + | Phone | Unavailable | + + + Support + + +---------+ + | Name | Relationship | Address | Phone | + + +---------+ + | Provided None | ECON | Unknown | | + + +---------+ + Care Team Providers + +------+ + | Care Core Cutter And Reamer Name | Role | Phone | + +------+ + PCP | Unavailable | + +------+ + Reason for Visit + + + | Reason | Comments | + + + | Headache (Adult - | | | Recurrent Or Known | | | Dx Migraines) | | + + + Encounter Details +--------+ + + + + | Date | Type | Department | Care Team | Description | +--------+ + + + + | 01/25/ | Emergency | [facility] | Mary Jane Miranda, | Migraine without | | 2017 | | HOSPITAL EM[facility]Y | [address] | aura and without | | | | CENTER [address] | [place], [place] | status migrainosus, | | | | [address] [place], [place] | [address] | not intractable | | | | [address] | [phone] | (Primary Dx) | | | | [phone] | | | +--------+ + + + + Social History + +-------+ +--------+ + | Tobacco Use | Types | Packs/Day | Years | Date | | | | | Used | | + +-------+ +--------+ + | Former Smoker | | | | Quit: 01/26/2000 | + +-------+ +--------+ + + +---+---+---+ | Smokeless Tobacco: | | | | | Never Used | | | | + +---+---+---+ + + +---------+ + | Alcohol Use | Drinks/Week | oz/Week | Comments | + + +---------+ + | Yes | 2 Shots of liquor | 2.0 | | + + +---------+ + + + + | Sex Assigned at | Date Recorded | | | | + + + | Not on file | | + + + documented as of this encounter Last Filed Vital Signs + + + + + | Vital Sign | Reading | Time Taken | Comments | + + + + + | Blood Pressure | 133/81 | 01/25/2017 10:35 PM | | | | | PDT | | + + + + + | Pulse | 78 | 01/25/2017 10:35 PM | | | | | PDT | | + + + + + | Temperature | 37.2 C (99 F) | 01/25/2017 10:35 PM | | | | | PDT | | + + + + + | Respiratory Rate | 16 | 01/25/2017 10:35 PM | | | | | PDT | | + + + + + | Oxygen Saturation | 94% | 01/25/2017 10:35 PM | | | | | PDT | | + + + + + | Inhaled Oxygen | - | - | | | Concentration | | | | + + + + + | Weight | 86.4 kg (190 lb 6.4 | 01/25/2017 8:37 PM | | | | oz) | PDT | | + + + + + | Height | 162.6 cm (5' 4") | 01/25/2017 8:37 PM | | | | | PDT | | + + + + + | Body Mass Index | 32.68 | 01/25/2017 8:37 PM | | | | | PDT | | + + + + + documented in this encounter Discharge Instructions AttachmentsThe following attachments cannot be sent through Care Everywhere.HEADACHE, MIGRA INE: STAGES AND TREATMENT (TURKISH)documented in this encounter Medications at Time of Discharge + + + +---------+--------+ + | Medication | Sig | Dispensed | Refills | Start | End Date | | | | | | Date | | + + + +---------+--------+ + | gabapentin | Take 100 mg by mouth | | 0 | | | | (NEURONTIN) 100 mg | Daily. | | | | | | capsule | | | | | | + + + +---------+--------+ + | prochlorperazine | Take 10 mg by mouth | | 0 | | | | (COMPAZINE) 10 mg | every 6 hours as | | | | | | tablet | needed (for | | | | | | | migraines, nausea). | | | | | + + + +---------+--------+ + | SUMAtriptan | Take 100 mg by mouth | | 0 | | | | (IMITREX) 100 mg | as needed for | | | | | | tablet | Migraine (took | | | | | | | today). | | | | | + + + +---------+--------+ + documented as of this encounter ED Notes Mary Jane Miranda MD - 01/25/2017 9:16 PM PDTFormatting of this note might be different fro m the original. Brian De La Torre Emergency Department Encounter Note PCP:No primary care provider on file. Mode of Arrival: Private vehicle with driving Accompanied by: Son Room: ED03 CHIEF COMPLAINT Chief Complaint Patient presents with Headache (Adult - Recurrent Or Known Dx Migraines) HPI Brian De La Torre is a 41 y.o. female who presents to the emergency department with c omplaints of a severe migraine headache. She said it started hours ago. She had a new imitre x injector and she tried it with no relief. She was given some compazine but has not tried i t. She had an occipatial nerve block almost a month ago in hopes this would decrease her messi billie. She is in the ER once monthly for migraines she can't control at home. She smokes m edical marijuana daily for her migraines. She does not use ibuprofen or tylenol. When she goes to the ER she says she gets a cocktail of 4 or 5 drugs, but she doesn't know what they are. She says she is usual in somuch pain and vomiting she doesn't remember much about her E R stays. She only one time did not get medication when an ER doctor did shots at the base o f her skull. She said they worked for her that time. She was pleased. She says this headache is a little different in that the pain is more up front, instead of all over her head. She thinks this is likely from the occipital block. PAST MEDICAL HISTORY Migraine [facility] SURGICAL HISTORY History reviewed. No pertinent surgical history. CURRENT MEDICATIONS Previous Medications GABAPENTIN (NEURONTIN) 100 MG CAPSULE Take 100 mg by mouth Daily. PROCHLORPERAZINE (COMPAZINE) 10 MG TABLET Take 10 mg by mouth every 6 hours as needed ( for migraines, nausea). SUMATRIPTAN (IMITREX) 100 MG TABLET Take 100 mg by mouth as needed for Migraine (took t dominick). ALLERGIES Allergies Allergen Reactions Bee Venom Anaphylaxis Delayed after anaphylaxis, angio edema Codeine Nausea And Vomiting Iodine Itching FAMILY HISTORY History reviewed. No pertinent family history. SOCIAL HISTORY She reports that she quit smoking about 17 years ago. She has never used smokeless tobacco . She reports that she drinks about 1.2 oz of alcohol per week . She reports that she uses d rugs, including Marijuana. Review of Systems Constitutional: Positive for fatigue. Negative for diaphoresis. HENT: Negative for congestion and ear pain. Eyes: Positive for photophobia. Negative for pain. Respiratory: Positive for cough (with recent URI she is recovering from.). Negative for hector st tightness and shortness of breath. Cardiovascular: Negative for chest pain. Gastrointestinal: Negative for abdominal pain. Musculoskeletal: Negative for back pain. Skin: Negative for rash. Neurological: Negative for dizziness, speech difficulty and light-headedness. Psychiatric/Behavioral: Negative for confusion. Last Set of Vital Signs: Temp: 36.8 C (98.3 F) Pulse: 90 Resp: 16 SpO2: 96 % BP: 131/79 Physical Exam Constitutional: She is oriented to person, place, and time. She appears well-developed and well-nourished. She appears distressed (laying in a dark room but communicating clearly. La kurt semi-recumbant. ). HENT: Head: Normocephalic and atraumatic. Right Ear: External ear normal. Left Ear: External ear normal. Nose: Nose normal. Mouth/Throat: Oropharynx is clear and moist. Eyes: Conjunctivae are normal. Pupils are equal, round, and reactive to light. Right eye ex hibits no discharge. Left eye exhibits no discharge. No scleral icterus. Neck: Neck supple. No spinous process tenderness and no muscular tenderness present. No no neck rigidity. Normal range of motion present. Cardiovascular: Normal rate, regular rhythm, normal heart sounds and intact distal pulses. Pulmonary/Chest: Effort normal and breath sounds normal. No respiratory distress. She has n o wheezes. Abdominal: Soft. She exhibits no mass. There is no tenderness. Neurological: She is alert and oriented to person, place, and time. No cranial nerve defici t. Coordination normal. Skin: Skin is warm and dry. Capillary refill takes less than 2 seconds. No rash noted. Psychiatric: Her speech is normal and behavior is normal. Judgment normal. Her affect is bl unt. Cognition and memory are normal. Nursing note and vitals reviewed. ED COURSE & MEDICAL DECISION MAKING Brian De La Torre presented to the Emergency Department for evaluation, and she was t riaged to room ED03. I reviewed the nursing notes, and she was evaluated by me. Patient was examined. I reviewed UpToDate for the most current recommendations for headache treatment in the emergency room and settled on the treatment below. Patient agreed with th is plan. Patient vomited quite a large volume but feels better now. Headache is better. She feels ready for discharge to home with famly. Medications dihydroergotamine (DHE) injection 1 mg (not administered) sodium chloride 0.9% (NS) bolus 500 mL (not administered) metoclopramide (REGLAN) 5 mg/mL injection 10 mg (not administered) diphenhydrAMINE (BENADRYL) injection 25 mg (not administered) FINAL IMPRESSION Final diagnoses: Migraine without aura and without status migrainosus, not intractable DISPOSITION : discharged with son and . She will stay hydrated and take her usual m edications. ED Prescriptions None Mary Jane Miranda MD 01/25/17 0828 documented in this en counter Miscellaneous Notes ED Triage Notes - Praveena Paulson RN - 01/25/2017 8:36 PM PDTPatient has a migraine. Is here visiting from [place]; does not have her migraine meds with her. She is nauseated, ph otophobic. documented in this encounter Plan of Treatment Not on filedocumented as of this encounter Visit Diagnoses + + | Diagnosis | + + | Migraine without aura and without status migrainosus, not intractable - Primary | | Migraine without aura, without mention of intractable migraine without mention of status | | migrainosus | + + | Medical marijuana use Encounter for long-term (current) use of other medications | + + documented in this encounter Administered Medications + +--------+ +------+------+------+ | Medication Order | MAR | Action | Dose | Rate | Site | | | Action | Date | | | | + +--------+ +------+------+------+ | dihydroergotamine (DHE) | Given | 01/26/20 | 1 mg | | | | injection 1 mg 1 mg, | | 17 9:33 | | | | | Intravenous, ONCE, 01/25/17 at | | PM PDT | | | | | 2130, For 1 dose | | | | | | + +--------+ +------+------+------+ +---+---+ | | | +---+---+ + +-------+ +-------+---+---+ | diphenhydrAMINE (BENADRYL) | Given | 01/26/20 | 25 mg | | | | injection 25 mg 25 mg, | | 17 9:31 | | | | | Intravenous, ONCE, 01/25/17 at | | PM PDT | | | | | 2130, For 1 dose | | | | | | + +-------+ +-------+---+---+ +---+---+ | | | +---+---+ + +-------+ +-------+---+---+ | metoclopramide (REGLAN) 5 mg/mL | Given | 01/26/20 | 10 mg | | | | injection 10 mg 10 mg, | | 17 9:31 | | | | | Intravenous, ONCE, 01/25/17 at | | PM PDT | | | | | 2130, For 1 dose, Protect from | | | | | | | light., | | | | | | + +-------+ +-------+---+---+ +---+---+ | | | +---+---+ + +---------+ +---------+-------+---+ | sodium chloride 0.9% (NS) bolus | New Bag | 01/26/20 | 500 mLs | 1000 | | | 500 mL 500 mL, Intravenous, | | 17 9:29 | | mL/hr | | | Administer over 2 Hours, ONCE, | | PM PDT | | | | | 01/25/17 at 2130, For 1 dose | | | | | | + +---------+ +---------+-------+---+ +---+---+ | | | +---+---+ documented in this encounter
--- OUTSIDE RECORDS SUMMARY | ~2020-05-04 | XMS | Clinical Summary ---
Demographics + + + | Address | [address] | | | [place] [address] | + + + | Home Phone | | + + + | Preferred Language | Unknown | + + + | Marital Status | Unknown | + + + | Yarsani Affiliation | Unknown | + + + | Race | White | + + + | Ethnic Group | Not or | + + + Author + + + | Author | [facility] | | | and [place] | + + + | Organization | [facility] | | | [...] Team Providers + +------+ + | Care Informatics Specialist Name | Role | Phone | + [...] use | 01/25/2017 | + + + Encounters +--------+ + + + + | Date | Type | Specialty | Care Team | Description | +--------+ + + + + | 02/13/ | Telephone | Pain Medicine | Jorge Davis, | Referral Question | | 2020 | | | MD | | +--------+ + + + + from Last 3 Months Social History + +-------+ +--------+ + | [...] on file | | + + + Last Filed Vital Signs + [...] + + Plan of Treatment + + +-------+ + | Health Maintenance | Due Date | Last | Comments | | | | Done | | + + +-------+ + | Hepatitis C | | | | | Screening | 6 | | | + + +-------+ + | Med Mgmt: Cr | | | | | | 6 | | | + + +-------+ + | Med Mgmt: eGFR | | | | | | 6 | | | + + +-------+ + | Medication | | | | | Management | 6 | | | + + +-------+ + | Vaccine: | | | | | Dtap/Tdap/Td (1 - | 5 | | | | Tdap) | | | | + + +-------+ + | Cervical Cancer | | | | | Screening (Pap) | 6 | | | + + +-------+ + | Adult Annual | | | | | Wellness Visit | 0 | | | + + +-------+ + | Vaccine: Influenza | | | | | (#1) | 0 | | | + + +-------+ + Results Not on filefrom Last 3 [...] +--------+ +---------+--------+ | MEDICARE | MEDICA | [id number] | Effect | [phone] | | Medica | | | RE | | jennifer | 5 | | re | | | PART A | | for | | | | | | | | all | | | | | | | | dates | | | | + +--------+ +--------+ +---------+--------+ | MEDICARE | MEDICA | [id number] | 03/27/20 | [phone] | | Medica | | | RE | | 17-Pre | 5 | | re | | | PART A | | sent | | | | | | AND B | | | | | | + [...] | Self | [birth year] | | [address] | | [place] | al/Fam | | 1974 | [phone] | [address] [place], | | | [place] | | | [address] (Home) | [place] [address] | + +--------+ +--------+ + + | Brian De La Torre | Person | Self | [birth year] | | [address] | | [place] | al/Fam | | 1974 | [phone] | [address] [place], | | | [place] | | | [address] (Home) | [place] [address] | + +--------+ +--------+ + + Advance Directives + + + + + | Type | Date Recorded | Patient | Explanation | | | | Painter Spray | | + + + + + | Power of | | | | | Bull Riveter | | | | + + + + + | Advance | | | | | Directive | | | | + + + + +
--- OUTSIDE RECORDS SUMMARY | ~2020-05-04 | XMS | Encounter Summary ---
Demographics + + + | Address | [address] | | | [place] [address] | + + + | Home Phone | | + + + | Preferred Language | Unknown | + + + | Marital Status | Unknown | + + + | Scientologist Affiliation | Unknown | + + + | Race | White | + + + | Ethnic Group | Not or | + + + Author + + + | Author | [facility] | | | and [place] | + + + | Organization | [facility] | | | and [...] Team Providers + +------+ + | Care Mma Fighter Name | Role | Phone | + +------+ + | Sanjay Guy MD | PCP | | + +------+ + Reason for Visit + +--------+ + | Reason | Onset | Comments | | | Date | | + +--------+ + | Referral Question | 02/13/ | | | | 2020 | | + +--------+ + Encounter Details +--------+ + + + + | Date | Type | Department | Care Team | Description | +--------+ + + + + | 02/13/ | Telephone | [facility] | Jorge Davis, | Referral Question | | 2019 | | NE[facility] | [address] | | | | | [address] | | | | | [address] | [place] [address] | | | | | [place], [place] | [phone] | | | | | [address] | | | | | | [phone] | | | +--------+ + + + [...] + + documented as of this encounter Miscellaneous Notes Telephone Encounter - Sharon Adams - 02/14/2020 12:28 PM Hermilo-Dr. Guy's offi ce, is calling regarding Referral Question and would like a call back. Additional Call Details: Caller is wanting to know if Dr. Davis specializes in managing rheumatoid arthritis pain or fibromyalgia pain. Please call back at [phone]. If this is a symptom based call, was patient offered triage? Not Applicable If this is a symptom based call and you were unable to immediately transfer the call to a p aniya highwall drill operator was caller made aware that if at any time she feels it is an emergency they sh ould call 911 or go to the nearest emergency room? not applicable documented in this encounter Plan of Treatment Not on filedocumented as of this encounter Visit Diagnoses Not on filedocumented in this encounter"
--- OUTSIDE RECORDS SUMMARY | ~2020-05-04 | XMS | Encounter Summary ---
Demographics + + + | Address | [address] | | | [place] [address] | + + + | Home Phone | | + + + | Preferred Language | Unknown | + + + | Marital Status | Single | + + + | Sabianist Affiliation | Unknown | + + + | Race | White | + + + | Ethnic Group | Not or | + + + Author + + + | Author | [facility] | + + + | Organization | [facility] | + + + | Address | Unknown | + + + | Phone | Unavailable | + + + Support + + +---------+ + | Name | Relationship | Address | Phone | + + +---------+ + | Declined | ECON | Unknown | Unavailable | + + +---------+ + Care Team Providers + +------+ + | Care Screening Specialist Name | Role | Phone | [...] | | | | | | | [facility] | | | | | | | for [facility] | | | | | | | and Healing, | | | | | | | [address], | | | | | | | 1st Floor | | | | | | | [place], [place] | | | | | | | [address] | | | | | | | Phone: | | | | | | | [phone] | | | | | | | Fax: | | | | | | | [phone] | +--------+--------+ + + + + Encounter [...] Dx) | | | | Barbara [address] | | | | | [address] | [place], [place] | | | | | Physician's | [address] | | | | | [place], [address] | | | | | | [place], [place] | | | | | | [address] | | | | | | [phone] | | | +--------+---------+ + + + [...] Primary/Referral Diagnosis/ICD-9: Fibromyalgia M79.7 729.1 Insurance: Payor: [facility] / Plan: [employer] OUT OF STATE / Product Type: PPO / Service period from: 07/02/2016 to: 09/30/2016 Number visits used/authorized: 07/27 [facility] OCCUPATIONAL THERAPY EVALUATION: FIBROMYALGIA SUBJECTIVE: History [...] migraines. Also of note, she has an extens jennifer history of migraines and has cognitive deficits when having a headache. Past Medical History: Brian has no past medical history on file. Meds: No current outpatient prescriptions on file prior to visit. No current facility-administered medications on file prior to visit. Pain Rating (0-10): Patient reports a pain level of today. 6/10- in the right DIP of thumb. Living situation: Brian currently lives with a [...] not get paid for this). She's done [employer] for [employer], but needed to quit due to health. Increased pain with work: NA Brian comes home unable to do tasks: NA Leisure activities: Camping- goes to [employer] and picks [employer]. Coping Strategies: Playing with kittens, taking a [...] oses. Long-Term Goals, as discussed with Brian De La Torre, due end of session: Patient will demonstrate [...] Evaluation [facility] [address] Mailcode: [id number] [place] [address] documented in this enco unter Plan of Treatment Not on filedocumented as of this encounter Procedures + +--------+ + + + | Procedure Name | Priori | Date/Time | Associated Diagnosis | Comments | | | ty | | | | + +--------+ + + + | ME OCCUPATIONAL | Routin | 07/02/2016 | Fibromyalgia [...]
--- OUTSIDE RECORDS SUMMARY | ~2020-05-04 | XMS | Encounter Summary ---
Demographics + + + | Address | [address] | | | [place] [address] | + + + | Home Phone | | + + + | Preferred Language | Unknown | + + + | Marital Status | Single | + + + | Islam Affiliation | Unknown | + + + | Race | White | + + + | Ethnic Group | Not or | + + + Author + + + | Author | [facility] | + + + | Organization | [facility] | + + + | Address | Unknown | + + + | Phone | Unavailable | + + + Support + + +---------+ + | Name | Relationship | Address | Phone | + + +---------+ + | Declined | ECON | Unknown | Unavailable | + + +---------+ + Care Team Providers + +------+ + | Care Nurse Aide Name | Role | Phone | + +------+ + | Sanjay Guy MD | PCP | | + +------+ + Encounter Details +--------+ + + + + | Date | Type | Department | Care Team | Description | +--------+ + + + + | 02/05/ | Document-Sc | Health Information | Unknown . | | | 2016 | anned | Services [id number] | | | | | [address] | | | | | | Mailcode: [id number] | | | | | | [facility] | | | | | | [place], [place] | | | | | | [address] | | | | | | [phone] | | | +--------+ + + + [...]
--- OUTSIDE RECORDS SUMMARY | ~2020-05-04 | XMS | Encounter Summary ---
Demographics + + + | Address | [address] | | | [place] [address] | + + + | Home Phone | | + + + | Preferred Language | Unknown | + + + | Marital Status | Single | + + + | Tenriism Affiliation | Unknown | + + + | Race | White | + + + | Ethnic Group | Not or | + + + Author + + + | Author | [facility] | + + + | Organization | [facility] | + + + | Address | Unknown | + + + | Phone | Unavailable | + + + Support + + +---------+ + | Name | Relationship | Address | Phone | + + +---------+ + | Declined | ECON | Unknown | Unavailable | + + +---------+ + Care Team Providers + +------+ + | Care Pension Manager Name | Role | Phone | + +------+ + | Sanjay Guy MD | PCP | | + +------+ + Reason for Visit + +--------+ + | Reason | Onset | Comments | | | Date | | + +--------+ + | Follow-up visit | 07/14/ | | | | 2016 | | + +--------+ + Encounter Details +--------+ + + + + | Date | Type | Department | Care Team | Description | +--------+ + + + + | 07/14/ | Telephone | Rheumatology at | [facility] | Follow-up visit | | 2016 | | [facility] [address] [facility] | | | | | [address] | | | | | Loop Physician's | [place], [place] | | | | | [place], [facility] Floor | [address] | | | | | [place], [place] | [phone] | | | | | [address] | | | | | | [phone] | | | +--------+ + + + [...] this encounter Miscellaneous Notes Telephone Encounter - Sravanthi Liriano MA - 07/14/2016 9:19 AM PSTReason for call: Patient called stating her PCP provider would not see her due to no records for the fibro c linic. I have faxed patients chart notes to PCP. Closing encounter. documented in this encounter Plan of Treatment Not on filedocumented as of this encounter Visit Diagnoses Not on filedocumented in this encounter"
--- OUTSIDE RECORDS SUMMARY | ~2020-05-04 | XMS | Encounter Summary ---
Demographics + + + | Address | [address] | | | [place] [address] | + + + | Home Phone [...] Author + + + | Author | [facility] | + + + | Organization | [facility] | + + + | Address | Unknown | + + + | Phone | Unavailable | + + + Support + + +---------+ + | Name | Relationship | Address | Phone | + + +---------+ + | Declined | ECON | Unknown | Unavailable | + + +---------+ + Care Team Providers + +------+ + | Care Regional Operations Manager Name | Role | Phone | [...] | | | | Physician's | [address] [place], | | | | | | [place], | [place] [address] | | | | | | 4th floor | Phone: | | | | | | [place], [place] | [phone] | | | | | | [address] | Fax: | | | | | | Phone: | [phone] | | | | | | [phone] | | | | | | | Fax: | | | | | | | [phone] | | +--------+--------+ + + + + Encounter Details +--------+---------+ + + + | Date | Type | Department | Care Team | Description | +--------+---------+ + + + | 07/02/ | Office | Rehabilitation | Esther Mckenzie L, | Fibromyalgia | | 2016 | Visit | Services at [facility] | MS,PT [address] | (Primary Dx) | | | | [address] | [facility] | | | | | Loop Physician's | [place] [address] | | | | | [place], 4th floor | [phone] | | | | | [place], [place] | | | | | | [address] | | | | | | [phone] | | | +--------+---------+ + + + [...] this encounter Patient Instructions Patient Instructions Esther Mckenzie, MS,PT - 07/02/2016 1:30 PM PST Dear Brian, Thank you for working with me today. Your plan of care is 1 visit for tilt table test with Esther and senior marketing specialist for 90 minutes. Consider tilt table [...] 24 hours in advance, either by using [employer] to cancel, or calling us at [phone]. Appointments cancelled with less than 24 hours notice are considered missed appointments . If two or more appointments are missed, you have the option to postpone your care to a t johnnie that works better for you, or move to same day scheduling. I look forward to working with you in your rehabilitation! ESTHER MCKENZIE MS, PT Physical Therapist [facility] [address] [facility], 1st [place] [address] + documented in this encounter Progress Notes Esther Mckenzie, ,PT - 07/02/2016 1:30 PM PSTFormatting of this note might be different f rom the original. Start of care: 07/02/2016 Date of onset: Date of Onset: 06/26/16 Referring/Attending Practitioner to Fibromyalgia Clinic: Sanjay Guy MD . Rheumatology Referring/Attending ProviderAiram Cary NP. Primary/Referral Diagnosis/ICD-9: ICD-10-CM ICD-9-CM 1. Fibromyalgia M79.7 729.1 Fibromyalgia/Myofascial Pain/729.1/ Rule out Fibromyalgia/Myofascial pain Insurance: Payor: [employer] / Plan: [employer] OUT OF STATE / Product Type: PPO / Date of : 1975 Service period from: 07/02/2016 to: 07/01/17 Number visits used/authorized: [address] [facility] INITIAL EVALUATION Brian De La Torre MR# [id number] SUBJECTIVE: History of Presenting Problem: Brian De [...] status. ESTHER MCKENZIE MS, PT Physical Therapist [facility], [address]th [address] [facility] [address] [facility], 3rd [place] [address] documented in this encounter Plan of Treatment Not on filedocumented as of this encounter Procedures + +--------+ + + + | Procedure Name | Priori | Date/Time | Associated Diagnosis | Comments | | | ty | | | | + +--------+ + + + | IN PHYS THERAPY | Routin | 07/02/2016 | [...]
--- OUTSIDE RECORDS SUMMARY | ~2020-05-04 | XMS | Encounter Summary ---
Demographics + + + | Address | [address] | | | [place] [address] | + + + | Home Phone [...] Author + + + | Author | [facility] | + + + | Organization | [facility] | + + + | Address | Unknown | + + + | Phone | Unavailable | + + + Support + + +---------+ + | Name | Relationship | Address | Phone | + + +---------+ + | Declined | ECON | Unknown | Unavailable | + + +---------+ + Care Team Providers + +------+ + | Care Electric Accounting Machine Operator Name | Role | Phone | [...] | | | | Fibromyalgia | Airam Alves, | Jojo Pfeiffer | | | | | Procedures | SILK OPENER [address] | for Health | | | | | | [place] | and Healing, | | | | | OCCUPATIONAL | Della Olguin | [address], | | | | | THERAPY | [facility] [place] | 1st Floor | | | | | REFERRAL | [address] | [facility] [place] | | | | | | Phone: | [phone] | | | | | | [phone] | Phone: | | | | | | Fax: | [phone] | | | | | | [phone] | Fax: | | | | | | | [phone] | +--------+--------+ + + + + Physical [...] | | | | Fibromyalgia | Airam Alves, | [facility] | | | | | Procedures | SILK OPENER [address] | for Health | | | | | PHYSICAL | [place] | and Healing, | | | | | THERAPY | Della Olguin | [address], | | | | | REFERRAL | [place], [place] | [facility] Floor | | | | | | [address] | [place], [place] | | | | | | Phone: | [phone] | | | | | | [phone] | Phone: | | | | | | Fax: | [phone] | | | | | | [phone] | Fax: | | | | | | | [phone] | +--------+--------+ + + + + Reason [...] | | | | elevated CRP | [facility] | [address] | | | | | and ESR | [address] | Physician's | | | | | | [place], | [place], | | | | | | [place] [address] | 4th floor | | | | | | Phone: | [place], [place] | | | | | | [phone] | [address] | | | | | | Fax: | Phone: | | | | | | [phone] | [phone] | | | | | | | Fax: | | | | | | | [phone] | +--------+--------+ + + + + Encounter Details +--------+---------+ + + + | Date | Type | Department | Care Team | Description | +--------+---------+ + + + | 07/02/ | Office | Rheumatology at | Airam Cary | Fibromyalgia | | 2016 | Visit | Physicians DOMO Mccullough [address] | (Primary Dx) | | | | [address] | [facility] [address] | | | | | Loop Physician's | [place], [place] | | | | | [place], [facility] floor | [address] | | | | | [place], [place] | [phone] | | | | | [address] | | | | | | [phone] | | | +--------+---------+ + + + [...] specifically dis cuss this consultation. Recommendations: WEBSITES: Www.Taptica ([facility] research and information regarding patient education seminars thr ough the School of Nursing) ` Www.myalgia.Whole Sale Fund BOOKS: "Fibromyalgia: Woman's Tool Kit" by Sara [...] "Fibromyalgia: After Your Visit", log into your Alluring Logic account at http :[email or web address]. You can enter V003 in the Wedge Buster" search box. Not on [employer]uring Logic? Review the [employer]uring Logic section of your After Visit Summary for directions on ho w to sign up. 5502-0436 [employer]check[employer]. Care instructions adapted under license by [facility] & [facility]. This care instruction is for use with your licensed healthCloud Theory e professional. If you have questions about a medical condition or this instruction, always ask your healthcare professional. [employer] disclaims any warranty or liabili ty for your use of this information. Content Version: 9.9.442110; Last Revised: December 10, 2012 "From the brain alone arise our pleasures, laughter, and jests, as well as our sorrows, daniel n, and griefs." Hippocrates documented in this encounter Progress Notes Airam Cary FNP - 07/02/2016 12:30 PM PSTFormatting of this note might be differe nt from the original. New Fibromyalgia Patient Consult: This patient was referred by: Sanjay Guy MD [facility] [address] [place] [address], . Your patient, Ms. De La Torre, a 41 y.o. female, was evaluated in the [facility] Fibromyalgia [facility] ic on July 02, 2016. This evaluation consisted of a fibromyalgia focused history and amaro ited physical examination, psychosocial assessment with focus on group education (60 min) an d counselling regarding diagnosis, treatment options, self-care measures, expectations and p rognosis. Travelling from [place]. History of Current Problem: Ms. De La [...] smokeless tobacco history on file. Work History: [employer]. Medico-Legal: No pending litigation. Sleep History: Describes [...] scale (SS) rating of 6. The 2010 [place] Tc ege of Rheumatology (ACR) criteria for diagnosis scores a WPI of 7 or greater and a SS of 5 positively as well as a WPI of 3 and a SS of 9 or greater. She suffers from moderate fibromy algia pain and dysfunction. She was given verbal and written information on fibromyalgia at the time of evaluation. The web site www.myalgia.Whole Sale Fund is also an excellent resource for sarita [...] improve their overall pain burden. Given Ms. Kelseyg history of non-restorative sleep and daily issues [...] 3 to 4 [facility] Trigger point injections give symptomatic relief in [...] referral for re-evaluation. [facility] AT [address] Mailcode: [address] [place] [address] Display Progress Note in MyChart: No documented in t his encounter Plan of Treatment Not on filedocumented as of this encounter Visit Diagnoses + + | Diagnosis | + + | Fibromyalgia - Primary Mylagia and myositis, unspecified | + + documented in this encounter
--- OUTSIDE RECORDS SUMMARY | ~2020-05-04 | XMS | Encounter Summary ---
Demographics + + + | Address | [address] | | | [place] [address] | + + + | Home Phone | | + + + | Preferred Language | Unknown | + + + | Marital Status | Single | + + + | Adventism Affiliation | Unknown | + + + [...] Team Providers + +------+ + | Care Technology Architect Name | Role | Phone | + +------+ + | Sanjay Guy MD | PCP | | + +------+ + Encounter Details +--------+ + + + + | Date | Type | Department | Care Team | Description | +--------+ + + + + | 03/25/ | Document-Sc | Health Information | Unknown . | | | 2017 | anned | Services [address] | | | | | | [address] | | | | | | Mailcode: [id number] | | | | | | [facility] | | | | | | [place], [place] | | | | | | [address] | | | | | | [phone] | | | +--------+ + + + [...]
--- OUTSIDE RECORDS SUMMARY | ~2020-05-04 | XMS | Clinical Summary ---
Demographics + + + | Address | [address] | | | [place] [address] | + + + | Home Phone | | + + + | Preferred Language | Unknown | + + + | Marital Status | Single | + + + | Rastafari Affiliation | Unknown | + + + [...] Team Providers + +------+ + | Care Licensed Prosthetist Name | Role | Phone | + +------+ + | Sanjay Guy MD | PCP | | + +------+ + Source Comments TRUMAN is fully live on both [facility] Ambulatory and [facility] InPatient.[facility] Allergies + + + + + + [...] | | + + +-------+ + | Influenza (Flu) | | | | | vaccination (#1) | 0 | | | + + +-------+ + | Pneumococcal | Aged Out | | No longer eligible based on patient's age | | vaccination | | | to complete this topic | + + +-------+ + Results Not [...] | BLUE CROSS BLUE | BCBS | [email or web address] | 07/27/19 | [phone] | [address] | PPO | | SHIELD | OUT OF | W | 14-Pre | 8 | [address] | | | | STATE | | sent | | [place], | | | | | | | | [place] | | | | | | | | [address] | | + +--------+ +--------+ + +------+ [...] | Self | [birth year] | | [address] | | | al/Fam | | 1975 | [phone] | [place] [address] | | | boubacar | | | 6 (Home) | | + +--------+ +--------+ + +"
--- OUTSIDE RECORDS SUMMARY | 2020-05-04 21:32 | XMS ---
PreManage Notification: SANJEEV MOREIRA Security Fertilizer Supervisor Events No recent Security Events currently on file CRITERIA MET - Group Notification CARE PROVIDERS [facility] 09/02/2019-Current PHONE: [phone] Emma has no Care Guidelines for this patient. Care History Medical/Surgical 05/24/2018 [facility] - PATIENT HAS NOT SEEN PCP DR HANSEN SINCE 06/24/2017. PATIENT HAS A LONG HISTORY OF CHRONIC HEADACHES/MIGRAINES. - PATIENT NEEDS TO FOLLOW UP WITH PCP AFTER ED VISIT. - PLEASE REFER PATIENT TO PCP OFFICE FOR CHRONIC CONDITIONS THAT ARE NON EMERGENT. E.D. VISIT COUNT (12 MO.) 4 [facility] TOTAL 4 NOTE: Visits indicate total known visits. ED/UCC VISIT TRACKING (12 MO.) 05/04/2020 21:29 [facility] [place] TYPE: Emergency COMPLAINT: - HEADACHE 01/31/2020 20:16 [facility] [place] TYPE: Emergency COMPLAINT: - HEADACHE DIAGNOSES: - Allergy status to narcotic agent status - Other detention (current) drug therapy - Rheumatoid arthritis, unspecified - Migraine, unspecified, not intractable, without status migrai - Bee allergy status - Headache - Other nonmedicinal substance allergy status 12/06/2019 20:57 [facility] [place] TYPE: Emergency COMPLAINT: - MIGRAINE DIAGNOSES: - Allergy status to narcotic agent status - Migraine, unspecified, not intractable, without status migrai - Rheumatoid arthritis, unspecified - Other detention (current) drug therapy - Radiographic dye allergy status 09/01/2019 20:47 [facility] [place] TYPE: Emergency COMPLAINT: - HEADACHE DIAGNOSES: - Headache - Other terminal operations supervisor (current) drug therapy - Bee allergy status - Allergy status to narcotic agent status INPATIENT VISIT TRACKING (12 MO.) No inpatient visits to display in this time frame [email or web address]
== END 2020-05-04 22:57 | disposition home or self-care (01) ==
LOC: ED 21:29
DX: G43.909 Migraine, unspecified, not intractable, without status migrainosus (principal); Z88.5 Allergy status to narcotic agent; Z91.030 Bee allergy status; Z79.899 Other long term (current) drug therapy
CPT/HCPCS: 96374; 96375; 99283-25; J1200; J1885; J2765; J7030

== ENCOUNTER 2020-07-06 23:48 | Emergency (ER) | payer MEDICARE, OTHER ==
[~2020-07-06] VITALS: Ht 165.1 cm; Wt 93.3 kg
--- OUTSIDE RECORDS SUMMARY | 2020-07-06 23:52 | XMS ---
PreManage Notification: SANJEEV MOREIRA Security Mammal Control Agent Events No recent Security Events currently on file CRITERIA MET - Group Notification CARE PROVIDERS TYRONE [facility] 09/02/2019-Current PHONE: [phone] Emma has no Care Guidelines for this patient. Care History Medical/Surgical 05/24/2018 [facility] - PATIENT HAS NOT SEEN PCP DR HANSEN SINCE 06/24/2017. PATIENT HAS A LONG HISTORY OF CHRONIC HEADACHES/MIGRAINES. - PATIENT NEEDS TO FOLLOW UP WITH PCP AFTER ED VISIT. - PLEASE REFER PATIENT TO PCP OFFICE FOR CHRONIC CONDITIONS THAT ARE NON EMERGENT. E.D. VISIT COUNT (12 MO.) [address] [place] [address] TOTAL 5 NOTE: Visits indicate total known visits. 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 - Rheumatoid arthritis, unspecified - Migraine, unspecified, not intractable, without status migrainosus - Bee allergy status - Headache - Other nonmedicinal substance allergy status 12/06/2019 20:57 [facility] [place] TYPE: Emergency COMPLAINT: - MIGRAINE DIAGNOSES: - Allergy status to narcotic agent - Migraine, unspecified, not intractable, without status migrainosus - Rheumatoid arthritis, unspecified - Other skilled nursing (current) drug therapy - Radiographic dye allergy status 09/01/2019 20:47 [facility] [place] TYPE: Emergency COMPLAINT: - HEADACHE DIAGNOSES: - Headache - 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
[2020-07-07] MEDS ORDERED: ZOLPIDEM TART12.5 MG PO (00:10)
== END 2020-07-07 02:35 | disposition home or self-care (01) ==
LOC: ED 23:48
DX: G43.909 Migraine, unspecified, not intractable, without status migrainosus (principal); Z87.891 Personal history of nicotine dependence; Z88.5 Allergy status to narcotic agent; Z88.8 Allergy status to other drugs, medicaments and biological substances; Z91.030 Bee allergy status; Z79.899 Other long term (current) drug therapy
CPT/HCPCS: 96374; 96375; 99283-25; J1200; J1885; J2765; J7030

== ENCOUNTER 2020-09-26 08:59 | Day surgery (SDC) | payer MEDICARE, OTHER ==
[~2020-09-26] VITALS: Ht 165.1 cm; Wt 93.5 kg
[~2020-09-26 08:59] MED LIST changes: +ACETYL L-CARNI500 MG; +ALPHA LIPOIC A200 MG PO; +CLARITIN10 M2 PO; +HOMOCYSTEINE F1 EACH PO; +MELATONIN10 M2 PO; +METHYLPREDNISOLO4 MG PO; +TRIAMCINOLONE A15 G1 TOP; +TYLENOL325 M1 PO; +VENTOLIN HFA18 GM INH; +VITAMIN C1000 MG PO; +ZOLPIDEM TART12.5 MG PO
--- NOTE | 2020-09-26 12:58 | NUR ---
09/26/20 1258 Cristian Dominguez RESPOSITIONED IN BED AND GAVE SIPS OF WATER WITHOUT PROBLEMS.
--- NOTE | 2020-09-27 07:19 | OR ---
[facility] [address] [place], [place] [address] Signed DATE OF OPERATION: 09/26/2020 SURGEON: Compa Ruff MD PREOPERATIVE DIAGNOSES: 1. Pilonidal cystectomy, 2001. 2. Recurrent pilonidal cyst. POSTOPERATIVE DIAGNOSES: 1. Pilonidal cystectomy, 2001. 2. Recurrent pilonidal cyst. PROCEDURE: Pilonidal cystectomy. ESTIMATED BLOOD LOSS: None. INDICATIONS: Sanjeev is a 45-year-old female, who underwent a pilonidal cystectomy back in 2001. Her was able to help her pack that wound and let it heal in secondarily. She then developed recurrent draining cyst in June 2020. There was erythema and pain. Augmentin did not help much. She had it incised and drained a day after [place] in her PCPs office. She also used Bactrim. Her was helping her pack the wound. The wound was about 3 mm and just slightly off to the right of the midline. She was asked to see me with respect to the above. Is now draining some serous fluid along with a little bloody fluid. The pain has settled down. She is quite concerned obviously that it may become reinfected. Therefore, she wanted to see me in consultation as a general surgeon. I met with Sanjeev and her in the office. She has a previous surgical scar about 12 maybe 15 mm in length somewhat inferiorly in her gluteal crease. A little lower than what we normally expect, but on palpation it was over the tip of the coccyx, which is common. We could see the 3 mm I and D site above that just to the right of the midline and slightly above that 3 small pits in the midline as well. There were no local signs or symptoms of infection in the office or today in our preop area. We could not see any obvious hair in that wound. I had reviewed with Sanjeev and her the nature of pilonidal cyst. They understand they have a propensity to recur. She would like to have this re-excised. She said her will help her once again with the wound packing to heal in secondarily. I explained to Sanjeev, we would probe back sinus tract and we would have to follow that. We will have to extend and excise all that tissue, otherwise `it will simply recur. She had expressed understanding and Electronically Signed By: COMPA RUFF MD 09/27/20 0719 PATIENT NAME: SANJEEV MOREIRA OPERATIVE REPORT DATE OF : 77 REPORT #: [id number] PHYSICIAN: COMPA RUFF MD PCP: MOHSEN HANSEN MD REPORT IS CONFIDENTIAL AND NOT TO BE RELEASED WITHOUT AUTHORIZATION [facility] [address], [place] [address] Signed wished to proceed. DESCRIPTION OF PROCEDURE: I met with Sanjeev in our preop area. Once again, she confirmed her pilonidal cyst. She was given a saddle block by our nurse general operations agent. She was then taken into the operating room and placed in the prone chad-knife position under appropriate padding and monitoring. She was given monitored anesthesia care per nurse general operations agent. She was prepped and draped in usual sterile fashion. She received her preoperative antibiotics. We gently probed the I and D site. It only went in a few millimeters, maybe 5 at the most. Consequently, we used our #15 blade knife and we excised the 3 pits in the midline and around the small I and D site. We very carefully examined that as we went through the adipose tissue, mindful of the sinus tract. It ended only about 5 mm underneath the skin. It did not track its way back down to the old pilonidal cystectomy site. Consequently, we did not pursue that all the way down to that area. That would have been a much longer incision, in fact twice as long as what we have currently. Her current incision is probably 2 cm or so in length. All the fat around it was quite healthy. Again, we did not find any specific care down in that sinus tract. She did have a little granulation tissue. Again, no local signs or symptoms of infection. We did sergo the sinus tract area with a silk stitch for the pathologist. After this, we injected local anesthetic into her wound. The wound was irrigated and suctioned out until clear. We packed the wound with saline soaked gauze. It was covered with dry gauze and underwear. After this, Sanjeev was rotated in the supine position on her hospital bed and taken into recovery room in stable condition. Compa Ruff MD ALB/MODL /[id number] cc: MD Compa Alvarez MD Chart Filed Incomplete Electronically Signed By: COMPA RUFF MD 09/27/20 0719 PATIENT NAME: SANJEEV MOREIRA OPERATIVE REPORT DATE OF : 77 REPORT #: [id number] PHYSICIAN: COMPA RUFF MD PCP: MOHSEN HANSEN MD REPORT IS CONFIDENTIAL AND NOT TO BE RELEASED WITHOUT AUTHORIZATION [address] [place] [address] Signed Copies: MOHSEN HANSEN MD, ANDREW L MD CHART FILED INCOMPLETE ~ Electronically Signed By: COMPA RUFF MD 09/27/20 0719 PATIENT NAME: SANJEEV MOREIRA OPERATIVE REPORT DATE OF : 77 REPORT #: [id number] PHYSICIAN: COMPA RUFF MD PCP: MOHSEN HANSEN MD REPORT IS CONFIDENTIAL AND NOT TO BE RELEASED WITHOUT AUTHORIZATION
== END 2020-09-26 13:14 | disposition home or self-care (01) ==
LOC: DS 08:59
PROVIDERS: ATTEND Colon & Rectal Surgery
PROC: 0JB90ZZ Excision of Buttock Subcutaneous Tissue and Fascia, Open Approach (ICD-10-PCS; principal; 2020-09-26 10:15)
DX: L05.91 Pilonidal cyst without abscess (principal); E78.00 Pure hypercholesterolemia, unspecified; G43.909 Migraine, unspecified, not intractable, without status migrainosus; E74.39 Other disorders of intestinal carbohydrate absorption; M06.9 Rheumatoid arthritis, unspecified; E54 Ascorbic acid deficiency; E53.9 Vitamin B deficiency, unspecified; Z88.5 Allergy status to narcotic agent; Z88.8 Allergy status to other drugs, medicaments and biological substances; Z88.4 Allergy status to anesthetic agent; Z91.030 Bee allergy status; Z87.2 Personal history of diseases of the skin and subcutaneous tissue; Z87.891 Personal history of nicotine dependence
CPT/HCPCS: J0690; J1644; J2001; J2250; J2704; J7121

== ENCOUNTER 2020-10-05 19:54 | Emergency (ER) | payer MEDICARE, OTHER ==
[~2020-10-05] VITALS: Ht 165.1 cm; Wt 93.8 kg
--- OUTSIDE RECORDS SUMMARY | 2020-10-05 19:58 | XMS ---
PreManage Notification: SANJEEV MOREIRA Security Ring Cutter Lathe Operator Events No recent Security Events currently on file CRITERIA MET - Group Notification - PDMP CARE PROVIDERS TYRONE [facility] 09/02/2019-Current PHONE: [phone] Emma has no Care Guidelines for this patient. Care History Medical/Surgical 05/24/2018 [facility] - PATIENT HAS NOT SEEN PCP DR HANSEN SINCE 06/24/2017. PATIENT HAS A LONG HISTORY OF CHRONIC HEADACHES/MIGRAINES. - PATIENT NEEDS TO FOLLOW UP WITH PCP AFTER ED VISIT. - PLEASE REFER PATIENT TO PCP OFFICE FOR CHRONIC CONDITIONS THAT ARE NON EMERGENT. E.D. VISIT COUNT (12 MO.) [address] [place] [address] TOTAL 5 NOTE: Visits indicate total known visits. ED/UCC VISIT TRACKING (12 MO.) 10/05/2020 19:55 [facility] [place] TYPE: Emergency COMPLAINT: - HEADACHE 07/06/2020 23:49 [facility] [place] TYPE: Emergency COMPLAINT: - HEADACHE DIAGNOSES: - Bee allergy status - Allergy status to other drugs, medicaments and biological substances - Headache, unspecified - Migraine, unspecified, not intractable, without status migrainosus - Allergy status to narcotic agent - Allergy status to other drugs, medicaments and biological substances - Personal history of nicotine dependence - Allergy status to narcotic agent - Other custodial (current) drug therapy - Headache, unspecified 05/04/2020 21:29 [facility] [place] [place] TYPE: Emergency COMPLAINT: - HEADACHE DIAGNOSES: - Bee allergy status - Migraine, unspecified, not intractable, without status migrainosus - Allergy status to narcotic agent - Headache, unspecified - Allergy status to narcotic agent - HEADACHE, UNSPECIFIED - Headache, unspecified - Other custodial (current) drug therapy 01/31/2020 20:16 [facility] [place] TYPE: Emergency COMPLAINT: - HEADACHE DIAGNOSES: - Allergy status to narcotic agent - Other custodial (current) drug therapy - Rheumatoid arthritis, unspecified - Migraine, unspecified, not intractable, without status migrainosus - Bee allergy status - Headache - Other nonmedicinal substance allergy status 12/06/2019 20:57 ER[facility] [place]ene [place] TYPE: Emergency COMPLAINT: - MIGRAINE DIAGNOSES: - Allergy status to narcotic agent - Migraine, unspecified, not intractable, without status migrainosus - Rheumatoid arthritis, unspecified - Other custodial (current) drug therapy - Radiographic dye allergy status INPATIENT VISIT TRACKING (12 MO.) No inpatient visits to display in this time frame [email or web address]
== END 2020-10-06 00:25 | disposition home or self-care (01) ==
LOC: ED 19:54
DX: G43.909 Migraine, unspecified, not intractable, without status migrainosus (principal); F17.200 Nicotine dependence, unspecified, uncomplicated; Z88.5 Allergy status to narcotic agent; Z91.030 Bee allergy status; Z88.8 Allergy status to other drugs, medicaments and biological substances; Z79.899 Other long term (current) drug therapy
CPT/HCPCS: 96374; 96375; 99283-25; J1200; J1885; J2765; J7030

== ENCOUNTER 2021-04-08 19:25 | Emergency (ER) | payer MEDICARE, OTHER ==
[~2021-04-08] VITALS: Ht 165.1 cm; Wt 93.4 kg
--- OUTSIDE RECORDS SUMMARY | 2021-04-08 19:26 | XMS ---
PreManage Notification: SANJEEV MOREIRA Security Watch Hairspring Assembler Events No recent Security Events currently on file CRITERIA MET - PDMP - Group Notification CARE PROVIDERS TYRONE [facility] 09/02/2019-Current PHONE: [phone] Emma has no Care Guidelines for this patient. Care History Medical/Surgical 05/24/2018 [facility] - PATIENT HAS NOT SEEN PCP DR HANSEN SINCE 06/24/2017. PATIENT HAS A LONG HISTORY OF CHRONIC HEADACHES/MIGRAINES. - PATIENT NEEDS TO FOLLOW UP WITH PCP AFTER ED VISIT. - PLEASE REFER PATIENT TO PCP OFFICE FOR CHRONIC CONDITIONS THAT ARE NON EMERGENT. E.D. VISIT COUNT (12 MO.) [address] [place] [address] TOTAL 4 NOTE: Visits indicate total known visits. ED/UCC VISIT TRACKING (12 MO.) 04/08/2021 19:25 [facility] [place] TYPE: Emergency COMPLAINT: - HEAD PAIN 10/05/2020 19:55 [facility] [place] TYPE: Emergency COMPLAINT: - HEADACHE DIAGNOSES: - Headache, unspecified - Bee allergy status - Allergy status to narcotic agent - Allergy status to other drugs, medicaments and biological substances - Migraine, unspecified, not intractable, without status migrainosus - Other tank terminal gauger (current) drug therapy - Nicotine dependence, unspecified, uncomplicated 07/06/2020 23:49 [facility] [place] TYPE: Emergency [...] Allergy status to narcotic agent - Other detention (current) drug therapy - Headache, unspecified [facility]/04/2020 21:29 [facility] Emergency COMPLAINT: - HEADACHE DIAGNOSES: - Bee allergy status - Migraine, unspecified, not intractable, without status migrainosus - Allergy status to narcotic agent - Headache, unspecified - Allergy status to narcotic agent - HEADACHE, UNSPECIFIED - Headache, unspecified - Other detention (current) drug therapy INPATIENT VISIT TRACKING (12 MO.) No inpatient visits to display in this time frame [email or web address]
[2021-04-08] MEDS ORDERED: HUMIRA PEN40 MG/0.4 SUB-Q (22:27)
[2021-04-08] MEDS ORDERED: DOXYCYCLINE MO100 M1 PO (22:30)
== END 2021-04-09 00:06 | disposition home or self-care (01) ==
LOC: ED 19:25
DX: G43.909 Migraine, unspecified, not intractable, without status migrainosus (principal); M79.7 Fibromyalgia; F17.200 Nicotine dependence, unspecified, uncomplicated; Z91.041 Radiographic dye allergy status; Z91.030 Bee allergy status; Z88.5 Allergy status to narcotic agent; Z79.899 Other long term (current) drug therapy
CPT/HCPCS: 96374; 96375; 99283-25; J1200; J1885; J2765; J7030

== ENCOUNTER 2021-06-06 10:21 | Emergency (ER) | payer MEDICARE, OTHER ==
[~2021-06-06] VITALS: Ht 165.1 cm; Wt 91.0 kg
[~2021-06-06 10:21] MED LIST changes: +DOXYCYCLINE MO100 M1 PO; +HUMIRA PEN40 MG/0.4 SUB-Q
--- OUTSIDE RECORDS SUMMARY | 2021-06-06 10:24 | XMS ---
PreManage Notification: SANJEEV MOREIRA Security Enrollment Processor Events No recent Security Events currently on file CRITERIA MET - PDMP - Group Notification CARE PROVIDERS TYR[facility] 09/02/2019-Current PHONE: [phone] Emma has no Care Guidelines for this patient. Care History Medical/Surgical 04/09/2021 [facility] - W CONTACTED DR HANSEN OFFICE- PATIENT HAS AN APT ON 05/13/21 FOR FOLLOW UP APT. - CHW REQUESTED IF PCP COULD POSSIBLY REVIEW MEDICATION ADJUSTMENTS AND OR REFERRAL TO A SPECIALIST DUE TO REOCCURRING MIGRAINES. RN NOTED TO PHYSICIAN. 05/24/2018 [facility] - PATIENT HAS NOT SEEN PCP DR HANSEN SINCE 06/24/2017. PATIENT HAS A LONG HISTORY OF CHRONIC HEADACHES/MIGRAINES. - PATIENT NEEDS TO FOLLOW UP WITH PCP AFTER ED VISIT. - PLEASE REFER PATIENT TO PCP OFFICE FOR CHRONIC CONDITIONS THAT ARE NON EMERGENT. E.D. VISIT COUNT (12 MO.) 4 [facility] TOTAL 4 NOTE: Visits indicate total known visits. ED/UCC VISIT TRACKING (12 MO.) 06/06/2021 10:[address] [facility] [place] TYPE: Emergency COMPLAINT: - CONFUSED,DISORIENTED 04/08/2021 19:25 [facility] [place] TYPE: Emergency COMPLAINT: - HEADACHE DIAGNOSES: - Fibromyalgia - Radiographic dye allergy status - Allergy status to narcotic agent - Other shelter (current) drug therapy - Headache, unspecified - Bee allergy status - Migraine, unspecified, not intractable, without status migrainosus - Nicotine dependence, unspecified, uncomplicated 10/05/2020 19:55 [facility] [place] TYPE: Emergency COMPLAINT: - HEADACHE DIAGNOSES: - Headache, unspecified - Bee allergy status - Allergy status to narcotic agent - Allergy status to other drugs, medicaments and biological substances - Migraine, unspecified, not intractable, without status migrainosus - Other intermediate school teacher (current) drug therapy - Nicotine dependence, unspecified, [...] Allergy status to narcotic agent - Other intermediate school teacher (current) drug therapy - Headache, unspecified INPATIENT VISIT TRACKING (12 MO.) No inpatient visits to display in this time frame [id number]
--- NOTE | 2021-06-06 21:23 | EKG ---
[facility] [address] [place], [place] [address] Signed Normal sinus rhythm Incomplete right bundle branch block Borderline ECG When compared with ECG of 17-DEC-2017 11:40, No significant change was found Confirmed by HARDY JETER DO ([id number]) on 06/06/2021 9:23:33 PM Electronically Signed By: HARDY JETER DO 06/06/212122 PATIENT NAME: SANJEEV MOREIRA Electrocardiogram DATE OF : 77 PHYSICIAN: HARDY JETER DO REPORT #: [id number] REPORT IS CONFIDENTIAL AND NOT TO BE RELEASED WITHOUT AUTHORIZATION
== END 2021-06-06 15:48 | disposition home or self-care (01) ==
LOC: ED 10:21
DX: R41.3 Other amnesia (principal); G43.909 Migraine, unspecified, not intractable, without status migrainosus; F17.200 Nicotine dependence, unspecified, uncomplicated; Z88.5 Allergy status to narcotic agent; Z91.030 Bee allergy status; Z88.8 Allergy status to other drugs, medicaments and biological substances; Z79.899 Other long term (current) drug therapy; Z79.52 Long term (current) use of systemic steroids
CPT/HCPCS: 70450; 80053; 81001; 85025; 93005; 93010; 99285-25

== ENCOUNTER 2021-08-07 20:55 | Emergency (ER) | payer MEDICARE, OTHER ==
[~2021-08-07] VITALS: Ht 165.1 cm; Wt 89.8 kg
--- OUTSIDE RECORDS SUMMARY | 2021-08-07 20:58 | XMS ---
PreManage Notification: SANJEEV MOREIRA Security Gas Roller Operator Events No recent Security Events currently on file CRITERIA MET - Group Notification - PDMP CARE PROVIDERS TYR[facility] 09/02/2019-Current PHONE: Unknown Emma has no Care Guidelines for this patient. Care History Medical/Surgical 04/09/2021 [facility] - CHW CONTACTED DR HANSEN OFFICE- PATIENT HAS AN APT ON 05/13/21 FOR FOLLOW UP APT. - CHW REQUESTED IF PCP COULD POSSIBLY REVIEW MEDICATION ADJUSTMENTS AND OR REFERRAL TO A SPECIALIST DUE TO REOCCURRING MIGRAINES. RN NOTED TO PHYSICIAN. 05/24/2018 [facility] - PATIENT HAS NOT SEEN PCP DR HANSEN SINCE 06/24/2017. PATIENT HAS A LONG HISTORY OF CHRONIC HEADACHES/MIGRAINES. - PATIENT NEEDS TO FOLLOW UP WITH PCP AFTER ED VISIT. - PLEASE REFER PATIENT TO PCP OFFICE FOR CHRONIC CONDITIONS THAT ARE NON EMERGENT. E.D. VISIT COUNT (12 MO[address] 4 [facility] TOTAL 4 NOTE: Visits indicate total known visits. ED/UCC VISIT TRACKING (12 MO.) 08/07/2021 20:[facility] [place] TYPE: Emergency COMPLAINT: - HEADACHE 06/06/2021 10:22 [facility] TYPE: Emergency COMPLAINT: - CONFUSED,DISORIENTED DIAGNOSES: - Other residential (current) drug therapy - Bee allergy status - Allergy status to narcotic agent - Nicotine dependence, unspecified, uncomplicated - Allergy status to other drugs, medicaments and biological substances - Migraine, unspecified, not intractable, without status migrainosus - Other amnesia - detention (current) use of systemic steroids 04/08/2021 19:25 [facility] [place] TYPE: Emergency COMPLAINT: - HEADACHE DIAGNOSES: - Fibromyalgia - Radiographic dye allergy status - Allergy status to narcotic agent - Other tank terminal gauger (current) drug therapy - Headache, unspecified - [...] not intractable, without status migrainosus - Other residential (current) drug therapy - Nicotine dependence, unspecified, uncomplicated INPATIENT VISIT TRACKING (12 MO.) No inpatient visits to display in this time frame [id number]
== END 2021-08-07 23:25 | disposition home or self-care (01) ==
LOC: ED 20:55
DX: G43.909 Migraine, unspecified, not intractable, without status migrainosus (principal); F17.200 Nicotine dependence, unspecified, uncomplicated; Z88.8 Allergy status to other drugs, medicaments and biological substances; Z88.5 Allergy status to narcotic agent; Z91.030 Bee allergy status; Z79.899 Other long term (current) drug therapy
CPT/HCPCS: 96374; 96375; 99283-25; J1200; J1885; J2765; J7030

== ENCOUNTER 2022-01-22 17:55 | Emergency (ER) | payer MEDICARE, OTHER ==
[~2022-01-22] VITALS: Ht 165.1 cm; Wt 91.2 kg
--- OUTSIDE RECORDS SUMMARY | 2022-01-22 17:58 | XMS ---
PreManage Notification: SANJEEV MOREIRA Security Engine Test Cell Technician Events No recent Security Events currently on file CRITERIA MET - PDMP - Group Notification CARE PROVIDERS TYRONE [facility] 09/02/2019-Current PHONE: Unknown Emma has no Care Guidelines for this patient. Care History Medical/Surgical 04/09/2021 [facility] - CHW CONTACTED DR HANSEN OFFICE- PATIENT HAS AN APT ON 05/13/21 FOR FOLLOW UP APT. - CHW REQUESTED IF PCP COULD POSSIBLY REVIEW MEDICATION ADJUSTMENTS AND OR REFERRAL TO A SPECIALIST DUE TO REOCCURRING MIGRAINES. RN NOTED TO PHYSICIAN. 05/24/2018 [facility] - PATIENT HAS NOT SEEN PCP DR HANSEN SINCE 06/24/2017. PATIENT HAS A LONG HISTORY OF CHRONIC HEADACHES/MIGRAINES. - PATIENT NEEDS TO FOLLOW UP WITH PCP AFTER ED VISIT. - PLEASE REFER PATIENT TO PCP OFFICE FOR CHRONIC CONDITIONS THAT ARE NON EMERGENT. E.D. VISIT COUNT (12 MO.) 4 [facility] TOTAL 4 NOTE: Visits indicate total known visits. ED/C VISIT TRACKING (12 MO.) 01/22/2022 17:[address] [facility] [place] TYPE: Emergency COMPLAINT: - HEADACHE 08/07/2021 20:56 [facility] TYPE: Emergency COMPLAINT: - HEADACHE DIAGNOSES: - Allergy status to other drugs, medicaments and biological substances - Migraine, unspecified, not intractable, without status migrainosus - Allergy status to narcotic agent - Other truck terminal manager (current) drug therapy - Nicotine dependence, unspecified, uncomplicated - Headache, unspecified - Bee allergy status 06/06/2021 10:22 [facility] TYPE: Emergency COMPLAINT: - CONFUSED,DISORIENTED DIAGNOSES: - Other snf (current) drug therapy - Bee allergy status - Allergy status to narcotic agent - Nicotine dependence, unspecified, uncomplicated - Allergy status to other drugs, medicaments and biological substances - Migraine, unspecified, not intractable, without status migrainosus - Other amnesia - group home (current) use of systemic steroids 04/08/2021 19:25 [facility] TYPE: Emergency COMPLAINT: - HEADACHE DIAGNOSES: - Fibromyalgia - Radiographic dye allergy status - Allergy status to narcotic agent - Other truck terminal manager (current) drug therapy - Headache, unspecified - Bee allergy status - Migraine, unspecified, not intractable, without status migrainosus - Nicotine dependence, unspecified, uncomplicated INPATIENT VISIT TRACKING (12 MO.) No inpatient visits to display in this time frame [id number]
[2022-01-22] MEDS ORDERED: CLOBETASOL PROP15 GM TOP (20:05)
[2022-01-22] MEDS ORDERED: XELJANZ XR11 MG PO (20:06)
== END 2022-01-22 21:15 | disposition home or self-care (01) ==
LOC: ED 17:55
DX: G43.009 Migraine without aura, not intractable, without status migrainosus (principal); F17.200 Nicotine dependence, unspecified, uncomplicated; Z79.899 Other long term (current) drug therapy; Z88.5 Allergy status to narcotic agent; Z91.041 Radiographic dye allergy status; Z91.038 Other insect allergy status
CPT/HCPCS: J1200; J1790; J1885; J7121

== ENCOUNTER 2022-02-09 15:59 | Emergency (ER) | payer MEDICARE, OTHER ==
[~2022-02-09] VITALS: Ht 165.1 cm; Wt 91.4 kg
[~2022-02-09 15:59] MED LIST changes: +CLOBETASOL PROP15 GM TOP; +XELJANZ XR11 MG PO
--- OUTSIDE RECORDS SUMMARY | 2022-02-09 16:02 | XMS ---
PreManage Notification: SANJEEV MOREIRA Security Brass Pourer Events No recent Security Events currently on file CRITERIA MET - [facility] - [facility] - 2 Visits in 30 Days - Group Notification CARE PROVIDERS TYRONE [facility] 09/02/2019-Current PHONE: Unknown Emma has no Care Guidelines for this patient. Care History Medical/Surgical 04/09/2021 [facility] - CHW CONTACTED DR HANSEN OFFICE- PATIENT HAS AN APT ON 05/13/21 FOR FOLLOW UP APT. - CHW REQUESTED IF PCP COULD POSSIBLY REVIEW MEDICATION ADJUSTMENTS AND OR REFERRAL TO A SPECIALIST DUE TO REOCCURRING MIGRAINES. RN NOTED TO PHYSICIAN. 05/24/2018 [facility] - PATIENT HAS NOT SEEN PCP DR HANSEN SINCE 06/24/2017. PATIENT HAS A LONG HISTORY OF CHRONIC HEADACHES/MIGRAINES. - PATIENT NEEDS TO FOLLOW UP WITH PCP AFTER ED VISIT. - PLEASE REFER PATIENT TO PCP OFFICE FOR CHRONIC CONDITIONS THAT ARE NON EMERGENT. E.D. VISIT COUNT (12 MO.) 5 [facility] TOTAL 5 NOTE: Visits indicate total known visits. ED/UCC VISIT TRACKING (12 MO.) 02/09/2022 16:00 [facility] TYPE: Emergency COMPLAINT: - VOMITING 01/22/2022 17:55 [facility] TYPE: Emergency COMPLAINT: - HEADACHE DIAGNOSES: - Allergy status to narcotic agent - Nicotine dependence, unspecified, uncomplicated - Headache, unspecified - Migraine without aura, not intractable, without status migrainosus - Other mcfp (current) drug therapy - Radiographic dye allergy status - Other insect allergy status 08/07/2021 20:56 [facility] TYPE: Emergency COMPLAINT: - HEADACHE DIAGNOSES: - Allergy status to other drugs, medicaments and biological substances - Migraine, unspecified, not intractable, without status migrainosus - Allergy status to narcotic agent - Other termite control representative (current) drug therapy - Nicotine dependence, unspecified, uncomplicated - Headache, unspecified - Bee allergy status 06/06/2021 10:22 [facility] TYPE: Emergency COMPLAINT: - CONFUSED,DISORIENTED DIAGNOSES: - Other termite control representative (current) drug therapy - Bee allergy status - Allergy status to narcotic agent - Nicotine dependence, unspecified, uncomplicated - Allergy status to other drugs, medicaments and biological substances - Migraine, unspecified, not intractable, without status migrainosus - Other amnesia - parts counterman (current) use of systemic steroids 04/08/2021 19:[address] [facility] [place] TYPE: Emergency COMPLAINT: - HEADACHE DIAGNOSES: - Fibromyalgia - Radiographic dye allergy status - Allergy status to narcotic agent - Other mcfp (current) drug therapy - Headache, unspecified - Bee allergy status - Migraine, unspecified, not intractable, without status migrainosus - Nicotine dependence, unspecified, uncomplicated INPATIENT VISIT TRACKING (12 MO.) No inpatient visits to display in this time frame [email or web address]
[2022-02-09] MEDS ORDERED: ONDANSETRON ODT4 MG PO (19:08)
== END 2022-02-09 20:22 | disposition home or self-care (01) ==
LOC: ED 15:59
DX: U07.1 COVID-19 (principal); F17.200 Nicotine dependence, unspecified, uncomplicated; Z88.5 Allergy status to narcotic agent; Z88.8 Allergy status to other drugs, medicaments and biological substances; Z91.038 Other insect allergy status
CPT/HCPCS: 36415; 80053; 83690; 85025; J2405; J7030

== ENCOUNTER 2022-10-01 17:33 | Emergency (ER) | payer MEDICARE, OTHER ==
[~2022-10-01] VITALS: Ht 165.1 cm; Wt 88.5 kg
[~2022-10-01 17:33] MED LIST changes: +CEPHALEXIN500 M1 PO; +CLINDAMYCIN PHO30 GM TOP; +ONDANSETRON ODT4 MG PO; +PREGABALIN100 MG PO
--- OUTSIDE RECORDS SUMMARY | 2022-10-01 17:40 | XMS ---
PreManage Notification: SANJEEV MOREIRA Security Geodesy Teacher Events No recent Security Events currently on file CRITERIA MET - Group Notification CARE PROVIDERS TYR[facility] 09/02/2019-Current PHONE: Unknown Emma has no Care Guidelines for this patient. Care History Medical/Surgical 04/09/2021 [facility] - CHW CONTACTED DR HANSEN OFFICE- PATIENT HAS AN APT ON 05/13/21 FOR FOLLOW UP APT. - CHW REQUESTED IF PCP COULD POSSIBLY REVIEW MEDICATION ADJUSTMENTS AND OR REFERRAL TO A SPECIALIST DUE TO REOCCURRING MIGRAINES. RN NOTED TO PHYSICIAN. 05/24/2018 [facility] - PATIENT HAS NOT SEEN PCP DR HANSEN SINCE 06/24/2017. PATIENT HAS A LONG HISTORY OF CHRONIC HEADACHES/MIGRAINES. - PATIENT NEEDS TO FOLLOW UP WITH PCP AFTER ED VISIT. - PLEASE REFER PATIENT TO PCP OFFICE FOR CHRONIC CONDITIONS THAT ARE NON EMERGENT. E.D. VISIT COUNT (12 MO.) 4 [facility] TOTAL 4 NOTE: Visits indicate total known visits. ED/UCC VISIT TRACKING (12 MO.) 10/01/2022 17:34 [facility] TYPE: Emergency COMPLAINT: - HEADACHE 08/01/2022 09:43 [facility] TYPE: Emergency COMPLAINT: - VAGINAL BLEEDING DIAGNOSES: - Right upper quadrant pain - Urinary tract infection, site not specified - Bee allergy status - Allergy status to narcotic agent - Radiographic dye allergy status - Migraine, unspecified, not intractable, without status migrainosus - Nicotine dependence, unspecified, uncomplicated - Abnormal uterine and vaginal bleeding, unspecified - Other shelter (current) drug therapy - Fibromyalgia 02/09/2022 16:00 [facility] TYPE: Emergency COMPLAINT: - VOMITING DIAGNOSES: - COVID-19 - Nicotine dependence, unspecified, uncomplicated - Allergy status to narcotic agent - Other insect allergy status - Allergy status to other drugs, medicaments and biological substances 01/22/2022 17:55 [facility] TYPE: Emergency COMPLAINT: - HEADACHE DIAGNOSES: - Radiographic dye allergy status - Migraine without aura, not intractable, without status migrainosus - Nicotine dependence, unspecified, uncomplicated - Other insect allergy status - Other long distance operator (current) drug therapy - Headache, unspecified - Allergy status to narcotic agent INPATIENT VISIT TRACKING (12 MO.) No inpatient visits to display in this time frame [email or web address]
[2022-10-01] MEDS ORDERED: LEVETIRACETAM500 MG PO (19:55)
[2022-10-01] MEDS ORDERED: PROMETHAZINE HC25 M1 PO (21:24)
[2022-10-01] MEDS ORDERED: IMITREX25 MG PO (21:24)
== END 2022-10-01 21:32 | disposition home or self-care (01) ==
LOC: ED 17:33
DX: G43.909 Migraine, unspecified, not intractable, without status migrainosus (principal); M06.9 Rheumatoid arthritis, unspecified; F17.200 Nicotine dependence, unspecified, uncomplicated; Z91.030 Bee allergy status; Z88.5 Allergy status to narcotic agent; Z79.899 Other long term (current) drug therapy
CPT/HCPCS: 96361; 96374; 96375; 99283-25; J1200; J1885; J2765; J3030; J7121

== ENCOUNTER 2023-02-01 22:04 | Emergency (ER) | payer MEDICARE, OTHER ==
[~2023-02-01] VITALS: Ht 162.6 cm; Wt 90.7 kg
--- OUTSIDE RECORDS SUMMARY | ~2023-02-01 | XMS | Continuity of Care Document ---
Demographics + + + | Address | [address] | | | [place] [address] | + + + | Preferred Language | Unknown | + + + | Marital Status | | + + + | Judaism Affiliation | Unknown | + + + | Race | White | + + + | Ethnic Group | Not or | + + + Author + + + | Author | [facility] | + + + | Organization | [facility] | + + + | Address | [address] [facility] | | | [place] [address] | + + + | Phone | | + + + Care Team Providers + + + + | Care Beater Engineer Name | Role | Phone | + + + + Unavailable | Unavailable | + + + + Unavailable | Unavailable | + + + + Unavailable | Unavailable | + + + + Allergies and Intolerances + + + + + | date | description | facility | type | + + + + + | (no date) | Wasp venom | [facility] | | + + + + + | (no date) | Codeine | [facility] ([facility] | | + + + + + | (no date) | codeine | [facility] ([facility] | | + + + + + | (no date) | Codeine | [facility] ([facility] | | + + + + + | (no date) | Anaphylaxis | [facility] (unknown[facility] | | + + + + + | (no date) | Vomiting | [facility] (unknown) [facility] | | + + + + + | (no date) | Iodine | [facility] (unknown[facility] | | + + + + + | (no date) | Iodine | [facility] (unknown[facility] | | + + + + + | (no date) | iodine | [facility] ([facility] | | + + + + + | (no date) | Iodine | [facility] (unknown) | | | [facility] | | + + + + + | (no date) | iodine | [facility] | (unknown) | + + + + + | (no date) | codeine | [facility] | (unknown) | + + + + + | (no date) | venom-wasp | [facility] | (unknown) | + + + + + | (no date) | Codeine | [facility] ([facility] | | + + + + + | (no date) | Wasp venom | [facility] (unknown[facility] | | | [facility] | | + + + + + Encounters No information. Functional Status No information. Immunizations No information. Medications + + + + | date | description | facility | + + + + | 2022-02-01 00:00 | MEDROXYPROGESTERONE | [facility] | | | ACETATE | | + + + + | 2022-02-10 00:00 | MEDROXYPROGESTERONE | [facility] | | | ACETATE | | + + + + | 2022-08-01 00:00 | MEDROXYPROGESTERONE | [facility] | | | ACETATE | | + + + + | 2022-10-01 00:00 | MEDROXYPROGESTERONE | [facility] | | | ACETATE | | + + + + | 2015-07-03 00:00 | METHOCARBAMOL | [facility] | + + + + | 2015-07-03 00:00 | METHOCARBAMOL | [facility] | + + + + | 2022-02-01 00:00 | CETIRIZINE HCL | [facility] | + + + + | 2022-02-10 00:00 | CETIRIZINE HCL | [facility] | + + + + | 2022-08-01 00:00 | CETIRIZINE HCL | [facility] | + + + + | 2022-10-01 00:00 | CETIRIZINE HCL | [facility] | + + + + | 2022-02-01 00:00 | CETIRIZINE HCL | [facility] | + + + + | 2022-02-10 00:00 | CETIRIZINE HCL | [facility] | + + + + | 2022-08-01 00:00 | CETIRIZINE HCL | [facility] | + + + + | 2022-10-01 00:00 | CETIRIZINE HCL | [facility] | + + + + | 2022-02-09 00:00 | ONDANSETRON | [facility] | + + + + | 2022-02-01 00:00 | OXYCODONE | [facility] | | | HCL/ACETAMINOPHEN | | + + + + | 2022-02-10 00:00 | OXYCODONE | [facility] | | | HCL/ACETAMINOPHEN | | + + + + | 2022-08-01 00:00 | OXYCODONE | [facility] | | | HCL/ACETAMINOPHEN | | + + + + | 2022-10-01 00:00 | OXYCODONE | [facility] | | | HCL/ACETAMINOPHEN | | + + + + | 2022-02-01 00:00 | METHOTREXATE SODIUM | [facility] | + + + + | 2022-02-10 00:00 | METHOTREXATE SODIUM | [facility] | + + + + | 2022-08-01 00:00 | METHOTREXATE SODIUM | [facility] | + + + + | 2022-10-01 00:00 | METHOTREXATE SODIUM | [facility] | + + + + | 2022-02-01 00:00 | MELATONIN | [facility] | + + + + | 2022-02-10 00:00 | MELATONIN | [facility] | + + + + | 2022-08-01 00:00 | MELATONIN | [facility] | + + + + | 2022-10-01 00:00 | MELATONIN | [facility] | + + + + | 2022-02-01 00:00 | MONTELUKAST SODIUM | [facility] | + + + + | 2022-02-10 00:00 | MONTELUKAST SODIUM | [facility] | + + + + | 2022-08-01 00:00 | MONTELUKAST SODIUM | [facility] | + + + + | 2022-10-01 00:00 | MONTELUKAST SODIUM | [facility] | + + + + | 2022-02-01 00:00 | DOXYCYCLINE MONOHYDRATE | [facility] | + + + + | 2022-02-10 00:00 | DOXYCYCLINE MONOHYDRATE | [facility] | + + + + | 2022-08-01 00:00 | DOXYCYCLINE MONOHYDRATE | [facility] | + + + + | 2022-10-01 00:00 | DOXYCYCLINE MONOHYDRATE | [facility] | + + + + | 2022-02-01 00:00 | Acetaminophen | [facility] | + + + + | 2022-02-10 00:00 | Acetaminophen | [facility] | + + + + | 2022-08-01 00:00 | Acetaminophen | [facility] | + + + + | 2022-10-01 00:00 | Acetaminophen | [facility] | + + + + | 2022-02-01 00:00 | Tofacitinib Citrate | [facility] | + + + + | 2022-02-10 00:00 | Tofacitinib Citrate | [facility] | + + + + | 2022-08-01 00:00 | Tofacitinib Citrate | [facility] | + + + + | 2022-02-01 00:00 | FLUTICASONE PROPIONATE | [facility] | + + + + | 2022-02-10 00:00 | FLUTICASONE PROPIONATE | [facility] | + + + + | 2022-08-01 00:00 | FLUTICASONE PROPIONATE | [facility] | + + + + | 2022-10-01 00:00 | FLUTICASONE PROPIONATE | [facility] | + + + + | 2022-02-01 00:00 | BACLOFEN | [facility] | + + + + | 2022-02-10 00:00 | BACLOFEN | [facility] | + + + + | 2022-08-01 00:00 | BACLOFEN | [facility] | + + + + | 2022-10-01 00:00 | BACLOFEN | [facility] | + + + + | 2022-08-01 00:00 | CEPHALEXIN | [facility] | + + + + | 2022-02-01 00:00 | DEXAMETHASONE | [facility] | + + + + | 2022-02-10 00:00 | DEXAMETHASONE | [facility] | + + + + | 2022-08-01 00:00 | DEXAMETHASONE | [facility] | + + + + | 2022-10-01 00:00 | DEXAMETHASONE | [facility] | + + + + | 2022-02-01 00:00 | DIAZEPAM | [facility] | + + + + | 2022-02-10 00:00 | DIAZEPAM | [facility] | + + + + | 2022-08-01 00:00 | DIAZEPAM | [facility] | + + + + | 2022-10-01 00:00 | DIAZEPAM | [facility] | + + + + | 2016-07-25 00:00 | IBUPROFEN | [facility] | + + + + | 2016-07-25 00:00 | IBUPROFEN | [facility] | + + + + | 2022-02-01 00:00 | ASCORBIC ACID | [facility] | + + + + | 2022-02-10 00:00 | ASCORBIC ACID | [facility] | + + + + | 2022-08-01 00:00 | ASCORBIC ACID | [facility] | + + + + | 2022-10-01 00:00 | ASCORBIC ACID | [facility] | + + + + | 2017-12-17 00:00 | LORAZEPAM | [facility] | + + + + | 2017-12-17 00:00 | LORAZEPAM | [facility] | + + + + | 2015-07-03 00:00 | OXAPROZIN | [facility] | + + + + | 2015-07-03 00:00 | OXAPROZIN | [facility] | + + + + | 2022-02-01 00:00 | METOCLOPRAMIDE HCL | [facility] | + + + + | 2022-02-10 00:00 | METOCLOPRAMIDE HCL | [facility] | + + + + | 2022-08-01 00:00 | METOCLOPRAMIDE HCL | [facility] | + + + + | 2022-10-01 00:00 | METOCLOPRAMIDE HCL | [facility] | + + + + | 2022-10-01 00:00 | SUMATRIPTAN SUCCINATE | [facility] | + + + + | 2022-02-01 00:00 | RIZATRIPTAN BENZOATE | [facility] | + + + + | 2022-02-10 00:00 | RIZATRIPTAN BENZOATE | [facility] | + + + + | 2022-08-01 00:00 | RIZATRIPTAN BENZOATE | [facility] | + + + + | 2022-10-01 00:00 | RIZATRIPTAN BENZOATE | [facility] | + + + + | 2022-02-01 00:00 | | [facility] | | | CYANOCOBALAMIN/FA/PYRIDOXIN | | | | E | | + + + + | 2022-02-10 00:00 | | [facility] | | | CYANOCOBALAMIN/FA/PYRIDOXIN | | | | E | | + + + + | 2022-08-01 00:00 | | [facility] | | | CYANOCOBALAMIN/FA/PYRIDOXIN | | | | E | | + + + + | 2022-10-01 00:00 | | [facility] | | | CYANOCOBALAMIN/FA/PYRIDOXIN | | | | E | | + + + + | 2022-08-01 00:00 | CLINDAMYCIN PHOSPHATE | [facility] | + + + + | 2022-02-01 00:00 | GABAPENTIN | [facility] | + + + + | 2022-02-10 00:00 | GABAPENTIN | [facility] | + + + + | 2022-08-01 00:00 | GABAPENTIN | [facility] | + + + + | 2022-10-01 00:00 | GABAPENTIN | [facility] | + + + + | 2022-02-01 00:00 | GABAPENTIN | [facility] | + + + + | 2022-02-10 00:00 | GABAPENTIN | [facility] | + + + + | 2022-08-01 00:00 | GABAPENTIN | [facility] | + + + + | 2022-10-01 00:00 | GABAPENTIN | [facility] | + + + + | 2022-10-01 00:00 | LEVETIRACETAM | [facility] | + + + + | 2022-02-01 00:00 | METOCLOPRAMIDE HCL | [facility] | + + + + | 2022-02-10 00:00 | METOCLOPRAMIDE HCL | [facility] | + + + + | 2022-08-01 00:00 | METOCLOPRAMIDE HCL | [facility] | + + + + | 2022-10-01 00:00 | METOCLOPRAMIDE HCL | [facility] | + + + + | 2022-02-01 00:00 | ONDANSETRON | [facility] | + + + + | 2022-02-10 00:00 | ONDANSETRON | [facility] | + + + + | 2022-08-01 00:00 | ONDANSETRON | [facility] | + + + + | 2022-10-01 00:00 | ONDANSETRON | [facility] | + + + + | 2022-02-01 00:00 | RIZATRIPTAN BENZOATE | [facility] | + + + + | 2022-02-10 00:00 | RIZATRIPTAN BENZOATE | [facility] | + + + + | 2022-08-01 00:00 | RIZATRIPTAN BENZOATE | [facility] | + + + + | 2022-10-01 00:00 | RIZATRIPTAN BENZOATE | [facility] | + + + + | 2022-08-01 00:00 | Pregabalin | [facility] | + + + + | 2022-02-01 00:00 | Abatacept/Maltose | [facility] | + + + + | 2022-02-10 00:00 | Abatacept/Maltose | [facility] | + + + + | 2022-08-01 00:00 | Abatacept/Maltose | [facility] | + + + + | 2022-10-01 00:00 | Abatacept/Maltose | [facility] | + + + + | 2014-02-17 00:00 | EPINEPHRINE | [facility] | + + + + | 2014-02-17 00:00 | EPINEPHRINE | [facility] | + + + + | 2022-02-01 00:00 | RIZATRIPTAN BENZOATE | [facility] | + + + + | 2022-02-10 00:00 | RIZATRIPTAN BENZOATE | [facility] | + + + + | 2022-08-01 00:00 | RIZATRIPTAN BENZOATE | [facility] | + + + + | 2022-10-01 00:00 | RIZATRIPTAN BENZOATE | [facility] | + + + + | 2022-02-01 00:00 | DESMOPRESSIN ACETATE | [facility] | + + + + | 2022-02-10 00:00 | DESMOPRESSIN ACETATE | [facility] | + + + + | 2022-08-01 00:00 | DESMOPRESSIN ACETATE | [facility] | + + + + | 2022-10-01 00:00 | DESMOPRESSIN ACETATE | [facility] | + + + + | 2022-02-01 00:00 | CHLORHEXIDINE GLUCONATE | [facility] | + + + + | 2022-02-10 00:00 | CHLORHEXIDINE GLUCONATE | [facility] | + + + + | 2022-08-01 00:00 | CHLORHEXIDINE GLUCONATE | [facility] | + + + + | 2022-10-01 00:00 | CHLORHEXIDINE GLUCONATE | [facility] | + + + + | 2022-02-01 00:00 | ZOLPIDEM TARTRATE | [facility] | + + + + | 2022-02-10 00:00 | ZOLPIDEM TARTRATE | [facility] | + + + + | 2022-08-01 00:00 | ZOLPIDEM TARTRATE | [facility] | + + + + | 2022-10-01 00:00 | ZOLPIDEM TARTRATE | [facility] | + + + + | 2022-02-01 00:00 | AMITRIPTYLINE HCL | [facility] | + + + + | 2022-02-10 00:00 | AMITRIPTYLINE HCL | [facility] | + + + + | 2022-08-01 00:00 | AMITRIPTYLINE HCL | [facility] | + + + + | 2022-10-01 00:00 | AMITRIPTYLINE HCL | [facility] | + + + + | 2015-07-03 00:00 | HYDROCODONE | [facility] | | | BIT/ACETAMINOPHEN | | + + + + | 2015-07-03 00:00 | HYDROCODONE | [facility] | | | BIT/ACETAMINOPHEN | | + + + + | 2022-02-01 00:00 | CLOBETASOL PROPIONATE | [facility] | + + + + | 2022-02-10 00:00 | CLOBETASOL PROPIONATE | [facility] | + + + + | 2022-08-01 00:00 | CLOBETASOL PROPIONATE | [facility] | + + + + | 2015-06-01 00:00 | ONDANSETRON | [facility] | + + + + | 2015-06-01 00:00 | ONDANSETRON | [facility] | + + + + | 2022-10-01 00:00 | PROMETHAZINE HCL | [facility] | + + + + Problems + + + + | date | description | facility | + + + + | 2014-05-21 00:00 | Contusion of hand | [facility] | + + + + | 2014-05-21 00:00 | Contusion of hand | [facility] | + + + + | 2014-05-21 00:00 | Superficial bruising | [facility] | + + + + | 2014-05-21 00:00 | Superficial bruising | [facility] | + + + + | 2014-09-12 00:00 | Headache | [facility] | + + + + | 2014-09-12 00:00 | Headache | [facility] | + + + + | 2015-01-17 00:00 | Tonsillitis | [facility] | + + + + | 2015-01-17 00:00 | Tonsillitis | [facility] | + + + + | 2015-07-03 00:00 | Strain of lumbar region | [facility] | + + + + | 2015-07-03 00:00 | Strain of lumbar region | [facility] | + + + + | 2015-10-08 00:00 | Headache, migraine, | [facility] | | | intractable | | + + + + | 2015-10-08 00:00 | Headache, migraine, | [facility] | | | intractable | | + + + + | 2015-10-08 00:00 | Acute bacterial sinusitis | [facility] | + + + + | 2015-10-08 00:00 | Acute bacterial sinusitis | [facility] | + + + + | 2015-12-30 00:00 | Recurrent occipital | [facility] | | | headache | | + + + + | 2015-12-30 00:00 | Recurrent occipital | [facility] | | | headache | | + + + + | 2016-03-17 00:00 | Migraine headache | [facility] | + + + + | 2016-03-17 00:00 | Migraine headache | [facility] | + + + + | 2016-07-25 00:00 | Sprain of right knee | [facility] | + + + + | 2016-07-25 00:00 | Sprain of right knee | [facility] | + + + + | 2016-11-08 00:00 | Headache | [facility] | + + + + | 2016-11-08 00:00 | Headache | [facility] | + + + + | 2016-11-26 00:00 | Patient left without being | [facility] | | | seen | | + + + + | 2016-11-26 00:00 | Patient left without being | [facility] | | | seen | | + + + + | 2018-04-05 00:00 | Recurrent headache | [facility] | + + + + | 2018-04-05 00:00 | Recurrent headache | [facility] | + + + + | 2021-06-06 00:00 | Memory impairment | [facility] | + + + + | 2021-06-06 00:00 | Memory impairment | [facility] | + + + + | 2022-01-22 00:00 | Migraine without aura | [facility] | + + + + | 2022-01-22 00:00 | Migraine without aura | [facility] | + + + + | 2022-02-09 00:00 | Infection due to severe | [facility] | | | acute respiratory syndrome | | | | coronavirus 2 (SARS-CoV-2) | | + + + + | 2022-02-09 00:00 | Infection due to severe | [facility] | | | acute respiratory syndrome | | | | coronavirus 2 (SARS-CoV-2) | | + + + + | 2022-06-03 00:01 | PATELLOFEMORAL DISORDERS, | [facility] | | | RIGHT KNEE | | + + + + | 2022-06-03 00:01 | ALLERGY STATUS TO | [facility] | | | ANALGESIC AGENT STATUS | | + + + + | 2022-06-03 00:01 | BEE ALLERGY STATUS | [facility] | + + + + | 2022-06-03 00:01 | RADIOGRAPHIC DYE ALLERGY | [facility] | | | STATUS | | + + + + | 2022-06-30 15:42 | PATELLOFEMORAL DISORDERS, | [facility] | | | RIGHT KNEE | | + + + + | 2022-07-14 15:11 | SPINAL ENTHESOPATHY, | [facility] | | | CERVICAL REGION | | + + + + | 2022-07-14 15:11 | SPINAL STENOSIS, CERVICAL | [facility] | | | REGION | | + + + + | 2022-07-14 15:11 | CERVICALGIA | [facility] | + + + + | 2022-08-01 00:00 | Urinary tract infection | [facility] | + + + + | 2022-08-01 00:00 | Urinary tract infection | [facility] | + + + + | 2022-08-01 00:00 | Abnormal vaginal bleeding | [facility] | + + + + | 2022-08-01 00:00 | Abnormal vaginal bleeding | [facility] | + + + + | 2022-08-01 00:00 | Abdominal pain | [facility] | + + + + | 2022-08-01 00:00 | Abdominal pain | [facility] | + + + + | 2022-08-01 09:43 | NICOTINE DEPENDENCE, | [facility] | | | UNSPECIFIED, UNCOMPLICATED | | + + + + | 2022-08-01 09:43 | MIGRAINE, UNSP, NOT | [facility] | | | INTRACTABLE, WITHOUT STATUS | | | | [place] | | + + + + | 2022-08-01 09:43 | FIBROMYALGIA | [facility] | + + + + | 2022-08-01 09:43 | URINARY TRACT INFECTION, | [facility] | | | SITE NOT SPECIFIED | | + + + + | 2022-08-01 09:43 | ABNORMAL UTERINE AND | [facility] | | | VAGINAL BLEEDING, | | | | UNSPECIFIED | | + + + + | 2022-08-01 09:43 | RIGHT UPPER QUADRANT PAIN | [facility] | + + + + | 2022-08-01 09:43 | OTHER NURSING HOME (CURRENT) | [facility] | | | DRUG TH[facility]APY | | + + + + | 2022-08-01 09:43 | ALLERGY STATUS TO NARCOTIC | [facility] | | | AGENT STATUS | | + + + + | 2022-08-01 09:43 | BEE ALLERGY STATUS | [facility] | + + + + | 2022-08-01 09:43 | RADIOGRAPHIC DYE ALLERGY | [facility] | | | STATUS | | + + + + | 2022-08-14 14:00 | CERVICALGIA | [facility] | + + + + | 2022-09-03 14:03 | CERVICALGIA | [facility] | + + + + | 2022-10-01 17:34 | NICOTINE DEPENDENCE, | [facility] | | | UNSPECIFIED, UNCOMPLICATED | | + + + + | 2022-10-01 17:34 | MIGRAINE, UNSP, NOT | [facility] | | | INTRACTABLE, WITHOUT STATUS | | | | [place] | | + + + + | 2022-10-01 17:34 | RHEUMATOID ARTHRITIS, | [facility] | | | UNSPECIFIED | | + + + + | 2022-10-01 17:34 | OTHER NURSING HOME (CURRENT) | [facility] | | | DRUG TH[facility]APY | | + + + + | 2022-10-01 17:34 | ALLERGY STATUS TO NARCOTIC | [facility] | | | AGENT STATUS | | + + + + | 2022-10-01 17:34 | BEE ALLERGY STATUS | [facility] | + + + + | 2022-11-12 06:57 | OTHER SPECIFIED DISORDERS | [facility] | | | OF NOSE AND NASAL SINUSE | | + + + + | 2022-11-12 06:57 | IDIOPATHIC ASEPTIC | [facility] | | | NECROSIS OF BONE, OTHER | | | | SITE | | + + + + | 2023-01-28 16:42 | ILIOTIBIAL BAND SYNDROME, | [facility] | | | RIGHT LEG | | + + + + | 2023-01-28 17:00 | ILIOTIBIAL BAND SYNDROME, | [facility] | | | RIGHT LEG | | + + + + Procedures No information. Results/Labs +--------+--------+ + +---------+--------+ + | test | date | author | facility | value | unit | | | | | | | | | interpreta | | | | | | | | tion | +--------+--------+ + +---------+--------+ + + + | Result panel 1 | + + + + + + +---------+ + + | (unknown) | (no date) | (unknown) | [facility] | (no | (units | (unknown) | | | | [facility] | value) | unknown) | | | [facility] | | | | + + + + +---------+ + + + + | Result panel 2 | + + + + + + +---------+ + + | (unknown) | (no date) | (unknown) | [facility] | (no | (units | (unknown) | | | | | [facility] | value) | unknown) | | | | | | [facility] | | | | + + + + +---------+ + + + + | Result panel 3 | + + + + + + +---------+ + + | (unknown) | (no date) | (unknown) | [facility] | (no | (units | (unknown) | | | | | [facility] | value) | unknown) | | | | | | [facility] | | | | + + + + +---------+ + + + + | Result panel 4 | + + + + + + +---------+ + + | (unknown) | (no date) | (unknown) | [facility] | (no | (units | (unknown) | | | | | [facility] | value) | unknown) | | | | | | Hospital | | | | + + + + +---------+ + + + + | Result panel 5 | + + + + + + +---------+ + + | (unknown) | (no date) | (unknown) | [facility] | (no | (units | (unknown) | | | | | [facility] | value) | unknown) | | | | | | Hospital | | | | + + + + +---------+ + + + + | Result panel 6 | + + + + + + +---------+ + + | (unknown) | (no date) | (unknown) | [facility] | (no | (units | (unknown) | | | | | [facility] | value) | unknown) | | | | | | Hospital | | | | + + + + +---------+ + + + + | Result panel 7 | + + + + + + +---------+ + + | (unknown) | (no date) | (unknown) | [facility] | (no | (units | (unknown) | | | | | [facility] | value) | unknown) | | | | | | Hospital | | | | + + + + +---------+ + + + + | Result panel 8 | + + + + + + +---------+ + + | (unknown) | (no date) | (unknown) | [facility] | (no | (units | (unknown) | | | | | [facility] | value) | unknown) | | | | | | Hospital | | | | + + + + +---------+ + + + + | Result panel 9 | + + + + + + +---------+ + + | (unknown) | (no date) | (unknown) | [facility] | (no | (units | (unknown) | | | | | [facility] | value) | unknown) | | | | | | Hospital | | | | + + + + +---------+ + + + + | Result panel 10 | + + + + + + +---------+ + + | (unknown) | (no date) | (unknown) | [facility] | (no | (units | (unknown) | | | | | [facility] | value) | unknown) | | | | | | Hospital | | | | + + + + +---------+ + + + + | Result panel 11 | + + + + + + +---------+ + + | (unknown) | (no date) | (unknown) | [facility] | (no | (units | (unknown) | | | | | [facility] | value) | unknown) | | | | | | Hospital | | | | + + + + +---------+ + + + + | Result panel 12 | + + + + + + +---------+ + + | (unknown) | (no date) | (unknown) | [facility] | (no | (units | (unknown) | | | | | [facility] | value) | unknown) | | | | | | Hospital | | | | + + + + +---------+ + + + + | Result panel 13 | + + + + + + +---------+ + + | (unknown) | (no date) | (unknown) | [facility] | (no | (units | (unknown) | | | | | [facility] | value) | unknown) | | | | | | Hospital | | | | + + + + +---------+ + + + + | Result panel 14 | + + + + + + +---------+ + + | (unknown) | (no date) | (unknown) | [facility] | (no | (units | (unknown) | | | | | [facility] | value) | unknown) | | | | | | Hospital | | | | + + + + +---------+ + + + + | Result panel 15 | + + + + + + +---------+ + + | (unknown) | (no date) | (unknown) | [facility] | (no | (units | (unknown) | | | | | [facility] | value) | unknown) | | | | | | Hospital | | | | + + + + +---------+ + + + + | Result panel 16 | + + + + + + +---------+ + + | (unknown) | (no date) | (unknown) | [facility] | (no | (units | (unknown) | | | | | [facility] | value) | unknown) | | | | | | Hospital | | | | + + + + +---------+ + + + + | Result panel 17 | + + + + + + +---------+ + + | (unknown) | (no date) | (unknown) | [facility] | (no | (units | (unknown) | | | | | [facility] | value) | unknown) | | | | | | Hospital | | | | + + + + +---------+ + + + + | Result panel 18 | + + + + + + +---------+ + + | (unknown) | (no date) | (unknown) | [facility] | (no | (units | (unknown) | | | | | [facility] | value) | unknown) | | | | | | Hospital | | | | + + + + +---------+ + + + + | Result panel 19 | + + + + + + +---------+ + + | (unknown) | (no date) | (unknown) | [facility] | (no | (units | (unknown) | | | | | [facility] | value) | unknown) | | | | | | Hospital | | | | + + + + +---------+ + + + + | Result panel 20 | + + + + + + +---------+ + + | (unknown) | (no date) | (unknown) | [facility] | (no | (units | (unknown) | | | | | [facility] | value) | unknown) | | | | | | Hospital | | | | + + + + +---------+ + + + + | Result panel 21 | + + + + + + +---------+ + + | (unknown) | (no date) | (unknown) | [facility] | (no | (units | (unknown) | | | | | [facility] | value) | unknown) | | | | | | Hospital | | | | + + + + +---------+ + + + + | Result panel 22 | + + + + + + +---------+ + + | (unknown) | (no date) | (unknown) | [facility] | (no | (units | (unknown) | | | | | [facility] | value) | unknown) | | | | | | Hospital | | | | + + + + +---------+ + + + + | Result panel 23 | + + + + + + +---------+ + + | (unknown) | (no date) | (unknown) | [facility] | (no | (units | (unknown) | | | | | [facility] | value) | unknown) | | | | | | Hospital | | | | + + + + +---------+ + + + + | Result panel 24 | + + + + + + +---------+ + + | (unknown) | (no date) | (unknown) | [facility] | (no | (units | (unknown) | | | | | [facility] | value) | unknown) | | | | | | Hospital | | | | + + + + +---------+ + + + + | Result panel 25 | + + + + + + +---------+ + + | (unknown) | (no date) | (unknown) | [facility] | (no | (units | (unknown) | | | | | [facility] | value) | unknown) | | | | | | Hospital | | | | + + + + +---------+ + + + + | Result panel 26 | + + + + + + +---------+ + + | (unknown) | (no date) | (unknown) | [facility] | (no | (units | (unknown) | | | | | [facility] | value) | unknown) | | | | | | Hospital | | | | + + + + +---------+ + + + + | Result panel 27 | + + + + + + +---------+ + + | (unknown) | (no date) | (unknown) | [facility] | (no | (units | (unknown) | | | | | [facility] | value) | unknown) | | | | | | Hospital | | | | + + + + +---------+ + + + + | Result panel 28 | + + + + + + +---------+ + + | (unknown) | (no date) | (unknown) | [facility] | (no | (units | (unknown) | | | | | [facility] | value) | unknown) | | | | | | Hospital | | | | + + + + +---------+ + + + + | Result panel 29 | + + + + + + +---------+ + + | (unknown) | (no date) | (unknown) | [facility] | (no | (units | (unknown) | | | | | [facility] | value) | unknown) | | | | | | Hospital | | | | + + + + +---------+ + + + + | Result panel 30 | + + + + + + +---------+ + + | (unknown) | (no date) | (unknown) | [facility] | (no | (units | (unknown) | | | | | [facility] | value) | unknown) | | | | | | [facility] | | | | + + + + +---------+ + + + + | Result panel 31 | + + + + + + +---------+ + + | (unknown) | (no date) | (unknown) | [facility] | (no | (units | (unknown) | | | | | [facility] | value) | unknown) | | | | | | Hospital | | | | + + + + +---------+ + + + + | Result panel 32 | + + + + + + +---------+ + + | (unknown) | (no date) | (unknown) | [facility] | (no | (units | (unknown) | | | | | [facility] | value) | unknown) | | | | | | Hospital | | | | + + + + +---------+ + + + + | Result panel 33 | + + + + + + +---------+ + + | (unknown) | (no date) | (unknown) | [facility] | (no | (units | (unknown) | | | | | [facility] | value) | unknown) | | | | | | Hospital | | | | + + + + +---------+ + + + + | Result panel 34 | + + + + + + +---------+ + + | (unknown) | (no date) | (unknown) | [facility] | (no | (units | (unknown) | | | | | [facility] | value) | unknown) | | | | | | Hospital | | | | + + + + +---------+ + + + + | Result panel 35 | + + + + + + +---------+ + + | (unknown) | (no date) | (unknown) | [facility] | (no | (units | (unknown) | | | | | [facility] | value) | unknown) | | | | | | Hospital | | | | + + + + +---------+ + + + + | Result panel 36 | + + + + + + +---------+ + + | (unknown) | (no date) | (unknown) | [facility] | (no | (units | (unknown) | | | | | [facility] | value) | unknown) | | | | | | Hospital | | | | + + + + +---------+ + + + + | Result panel 37 | + + + + + + +---------+ + + | (unknown) | (no date) | (unknown) | [facility] | (no | (units | (unknown) | | | | | [facility] | value) | unknown) | | | | | | Hospital | | | | + + + + +---------+ + + + + | Result panel 38 | + + + + + + +---------+ + + | (unknown) | (no date) | (unknown) | [facility] | (no | (units | (unknown) | | | | | [facility] | value) | unknown) | | | | | | Hospital | | | | + + + + +---------+ + + + + | Result panel 39 | + + + + + + +---------+ + + | (unknown) | (no date) | (unknown) | [facility] | (no | (units | (unknown) | | | | | [facility] | value) | unknown) | | | | | | Hospital | | | | + + + + +---------+ + + + + | Result panel 40 | + + + + + + +---------+ + + | (unknown) | (no date) | (unknown) | [facility] | (no | (units | (unknown) | | | | | [facility] | value) | unknown) | | | | | | Hospital | | | | + + + + +---------+ + + + + | Result panel 41 | + + + + + + +---------+ + + | (unknown) | (no date) | (unknown) | [facility] | (no | (units | (unknown) | | | | | [facility] | value) | unknown) | | | | | | Hospital | | | | + + + + +---------+ + + + + | Result panel 42 | + + + + + + +---------+ + + | (unknown) | (no date) | (unknown) | [facility] | (no | (units | (unknown) | | | | | [facility] | value) | unknown) | | | | | | Hospital | | | | + + + + +---------+ + + + + | Result panel 43 | + + + + + + +---------+ + + | (unknown) | (no date) | (unknown) | [facility] | (no | (units | (unknown) | | | | | [facility] | value) | unknown) | | | | | | Hospital | | | | + + + + +---------+ + + + + | Result panel 44 | + + + + + + +---------+ + + | (unknown) | (no date) | (unknown) | [facility] | (no | (units | (unknown) | | | | | [facility] | value) | unknown) | | | | | | Hospital | | | | + + + + +---------+ + + + + | Result panel 45 | + + + + + + +---------+ + + | (unknown) | (no date) | (unknown) | [facility] | (no | (units | (unknown) | | | | | [facility] | value) | unknown) | | | | | | Hospital | | | | + + + + +---------+ + + + + | Result panel 46 | + + + + + + +---------+ + + | (unknown) | (no date) | (unknown) | [facility] | (no | (units | (unknown) | | | | | [facility] | value) | unknown) | | | | | | Hospital | | | | + + + + +---------+ + + + + | Result panel 47 | + + + + + + +---------+ + + | (unknown) | (no date) | (unknown) | [facility] | (no | (units | (unknown) | | | | | [facility] | value) | unknown) | | | | | | Hospital | | | | + + + + +---------+ + + + + | Result panel 48 | + + + + + + +---------+ + + | (unknown) | (no date) | (unknown) | [facility] | (no | (units | (unknown) | | | | | [facility] | value) | unknown) | | | | | | Hospital | | | | + + + + +---------+ + + + + | Result panel 49 | + + + + + + +---------+ + + | (unknown) | (no date) | (unknown) | [facility] | (no | (units | (unknown) | | | | | [facility] | value) | unknown) | | | | | | Hospital | | | | + + + + +---------+ + + + + | Result panel 50 | + + + + + + +---------+ + + | (unknown) | (no date) | (unknown) | [facility] | (no | (units | (unknown) | | | | | [facility] | value) | unknown) | | | | | | Hospital | | | | + + + + +---------+ + + + + | Result panel 51 | + + + + + + +---------+ + + | (unknown) | (no date) | (unknown) | [facility] | (no | (units | (unknown) | | | | | [facility] | value) | unknown) | | | | | | Hospital | | | | + + + + +---------+ + + + + | Result panel 52 | + + + + + + +---------+ + + | (unknown) | (no date) | (unknown) | [facility] | (no | (units | (unknown) | | | | | [facility] | value) | unknown) | | | | | | Hospital | | | | + + + + +---------+ + + + + | Result panel 53 | + + + + + + +---------+ + + | (unknown) | (no date) | (unknown) | [facility] | (no | (units | (unknown) | | | | | [facility] | value) | unknown) | | | | | | Hospital | | | | + + + + +---------+ + + + + | Result panel 54 | + + + + + + +---------+ + + | (unknown) | (no date) | (unknown) | [facility] | (no | (units | (unknown) | | | | | [facility] | value) | unknown) | | | | | | Hospital | | | | + + + + +---------+ + + + + | Result panel 55 | + + + + + + +---------+ + + | (unknown) | (no date) | (unknown) | [facility] | (no | (units | (unknown) | | | | | [facility] | value) | unknown) | | | | | | Hospital | | | | + + + + +---------+ + + Social History No information. Vital Signs + + + +---------+ | date | measurement | value | units | + + + +---------+ | 2022-01-22 00:00 | BMI | 33.4 | kg/m2 | + + + +---------+ | 2022-01-22 00:00 | BP_diastolic | 85 | mmHg | + + + +---------+ | 2022-01-22 00:00 | BP_systolic | 131 | mmHg | + + + +---------+ | 2022-01-22 00:00 | heart_rate | 84 | /min | + + + +---------+ | 2022-01-22 00:00 | height_metric | 165.1 | cm | + + + +---------+ | 2022-01-22 00:00 | height_standard | 65 | in | + + + +---------+ | 2022-01-22 00:00 | o2_saturation | 99 | % | + + + +---------+ | 2022-01-22 00:00 | respiration_rate | 16 | /min | + + + +---------+ | 2022-01-22 00:00 | temperature_metric | 37 | C | | | | | | + + + +---------+ | 2022-01-22 00:00 | | 98.6 | F | | | temperature_standar | | | | | d | | | + + + +---------+ | 2022-01-22 00:00 | weight_metric | 91.17 | kg | + + + +---------+ | 2022-01-22 00:00 | weight_standard | 201 | lb | + + + +---------+ | 2022-02-09 00:00 | BMI | 33.5 | kg/m2 | + + + +---------+ | 2022-02-09 00:00 | BP_diastolic | 93 | mmHg | + + + +---------+ | 2022-02-09 00:00 | BP_systolic | 140 | mmHg | + + + +---------+ | 2022-02-09 00:00 | heart_rate | 87 | /min | + + + +---------+ | 2022-02-09 00:00 | height_metric | 165.1 | cm | + + + +---------+ | 2022-02-09 00:00 | height_standard | 65 | in | + + + +---------+ | 2022-02-09 00:00 | o2_saturation | 99 | % | + + + +---------+ | 2022-02-09 00:00 | respiration_rate | 16 | /min | + + + +---------+ | 2022-02-09 00:00 | temperature_metric | 37 | C | | | | | | + + + +---------+ | 2022-02-09 00:00 | | 98.6 | F | | | temperature_standar | | | | | d | | | + + + +---------+ | 2022-02-09 00:00 | weight_metric | 91.4 | kg | + + + +---------+ | 2022-02-09 00:00 | weight_standard | 201.5 | lb | + + + +---------+ | 2022-08-01 00:00 | BMI | 33.2 | kg/m2 | + + + +---------+ | 2022-08-01 00:00 | BP_diastolic | 71 | mmHg | + + + +---------+ | 2022-08-01 00:00 | BP_systolic | 103 | mmHg | + + + +---------+ | 2022-08-01 00:00 | heart_rate | 64 | /min | + + + +---------+ | 2022-08-01 00:00 | height_metric | 165.1 | cm | + + + +---------+ | 2022-08-01 00:00 | height_standard | 65 | in | + + + +---------+ | 2022-08-01 00:00 | o2_saturation | 97 | % | + + + +---------+ | 2022-08-01 00:00 | respiration_rate | 15 | /min | + + + +---------+ | 2022-08-01 00:00 | temperature_metric | 36.83 | C | | | | | | + + + +---------+ | 2022-08-01 00:00 | | 98.3 | F | | | temperature_standar | | | | | d | | | + + + +---------+ | 2022-08-01 00:00 | weight_metric | 90.5 | kg | + + + +---------+ | 2022-08-01 00:00 | weight_standard | 199.52 | lb | + + + +---------+ | 2022-10-01 00:00 | BMI | 32.4 | kg/m2 | + + + +---------+ | 2022-10-01 00:00 | BP_diastolic | 94 | mmHg | + + + +---------+ | 2022-10-01 00:00 | BP_systolic | 130 | mmHg | + + + +---------+ | 2022-10-01 00:00 | heart_rate | 79 | /min | + + + +---------+ | 2022-10-01 00:00 | height_metric | 165.1 | cm | + + + +---------+ | 2022-10-01 00:00 | height_standard | 65 | in | + + + +---------+ | 2022-10-01 00:00 | o2_saturation | 96 | % | + + + +---------+ | 2022-10-01 00:00 | respiration_rate | 16 | /min | + + + +---------+ | 2022-10-01 00:00 | temperature_metric | 36.83 | C | | | | | | + + + +---------+ | 2022-10-01 00:00 | | 98.3 | F | | | temperature_standar | | | | | d | | | + + + +---------+ | 2022-10-01 00:00 | weight_metric | 88.45 | kg | + + + +---------+ | 2022-10-01 00:00 | weight_standard | 195 | lb | + + + +---------+"
--- OUTSIDE RECORDS SUMMARY | ~2023-02-01 | XMS | Continuity of Care Document ---
Demographics + + + | Address | [address] | | | [place] [address] | + + + | Preferred Language | Unknown | + + + | Marital Status | | + + + | Scientology Affiliation | Unknown | + + + | Race | White | + + + | Ethnic Group | Not or | + + + Author + + + | Author | [facility] | + + + | Organization | [facility] | + + + | Address | [address] [facility] | | | [place] [address] | + + + | Phone | | + + + Care Team Providers + + + + | Care Health Promotion Officer Name | Role | Phone | + [...] | (no date) | Codeine | [facility] (unknown[facility] | | + + + + + | (no date) | codeine | [facility] (unknown[facility] | | + + + + + | (no date) | Codeine | [facility] (unknown[facility] | [facility] | | + + + + + | (no date) | Anaphylaxis | [facility] | (unknown[facility] | | + + + + + | (no date) | Vomiting | [facility] | (unknown) [facility] | | + + + + + | (no date) | Iodine | [facility] | (unknown) | | | | Hospital | | + + + + + | (no date) | Iodine | [facility] | (unknown) | | | | Hospital | | + + + + + | (no date) | iodine | [facility] | (unknown) | | [facility] Hospital | | + + + + + | (no date) | Iodine | [facility] | (unknown) | | | | Hospital [...] (no date) | Wasp venom | [facility] (unknown) | | | | Hospital | | + + + + + Encounters No information. Functional Status No information. Immunizations No information. Medications + + + + | date | description | facility | + + + + | 2022-02-01 00:00 | MEDROXYPROGESTERONE | [facility] | | | ACETATE | | + + + + | 2022-02-10 00:00 | MEDROXYPROGESTERONE | [facility] | | | ACETATE | | + + + + | 2022-08-01 00:00 | MEDROXYPROGESTERONE | [facility] | | | ACETATE | | + + + + | 2022-10-01 00:00 | MEDROXYPROGESTERONE | [facility] | | | ACETATE | | + + + + | 2015-07-03 00:00 | METHOCARBAMOL | [facility] | + + + + | 2015-07-03 00:00 | METHOCARBAMOL | [facility] | + + + + | 2022-02-01 00:00 | CETIRIZINE HCL | [facility] | + + + + | 2022-02-10 00:00 | CETIRIZINE HCL | [facility] | + + + + | 2022-08-01 00:00 | CETIRIZINE HCL | [facility] | + + + + | 2022-10-01 00:00 | CETIRIZINE HCL | [facility] | + + + + | 2022-02-01 00:00 | CETIRIZINE HCL | [facility] | + + + + | 2022-02-10 00:00 | CETIRIZINE HCL | [facility] | + + + + | 2022-08-01 00:00 | CETIRIZINE HCL | [facility] | + + + + | 2022-10-01 00:00 | CETIRIZINE HCL | [facility] | + + + + | 2022-02-09 00:00 | ONDANSETRON | [facility] | + + + + | 2022-02-01 00:00 | OXYCODONE | [facility] | | | HCL/ACETAMINOPHEN | | + + + + | 2022-02-10 00:00 | OXYCODONE | [facility] | | | HCL/ACETAMINOPHEN | | + + + + | 2022-08-01 00:00 | OXYCODONE | [facility] | | | HCL/ACETAMINOPHEN | | + + + + | 2022-10-01 00:00 | OXYCODONE | [facility] | | | HCL/ACETAMINOPHEN | | + + + + | 2022-02-01 00:00 | METHOTREXATE SODIUM | [facility] | + + + + | 2022-02-10 00:00 | METHOTREXATE SODIUM | [facility] | + + + + | 2022-08-01 00:00 | METHOTREXATE SODIUM | [facility] | + + + + | 2022-10-01 00:00 | METHOTREXATE SODIUM | [facility] | + + + + | 2022-02-01 00:00 | MELATONIN | [facility] | + + + + | 2022-02-10 00:00 | MELATONIN | [facility] | + + + + | 2022-08-01 00:00 | MELATONIN | [facility] | + + + + | 2022-10-01 00:00 | MELATONIN | [facility] | + + + + | 2022-02-01 00:00 | MONTELUKAST SODIUM | [facility] | + + + + | 2022-02-10 00:00 | MONTELUKAST SODIUM | [facility] | + + + + | 2022-08-01 00:00 | MONTELUKAST SODIUM | [facility] | + + + + | 2022-10-01 00:00 | MONTELUKAST SODIUM | [facility] | + + + + | 2022-02-01 00:00 | DOXYCYCLINE MONOHYDRATE | [facility] | + + + + | 2022-02-10 00:00 | DOXYCYCLINE MONOHYDRATE | [facility] | + + + + | 2022-08-01 00:00 | DOXYCYCLINE MONOHYDRATE | [facility] | + + + + | 2022-10-01 00:00 | DOXYCYCLINE MONOHYDRATE | [facility] | + + + + | 2022-02-01 00:00 | Acetaminophen | [facility] | + + + + | 2022-02-10 00:00 | Acetaminophen | [facility] | + + + + | 2022-08-01 00:00 | Acetaminophen | [facility] | + + + + | 2022-10-01 00:00 | Acetaminophen | [facility] | + + + + | 2022-02-01 00:00 | Tofacitinib Citrate | [facility] | + + + + | 2022-02-10 00:00 | Tofacitinib Citrate | [facility] | + + + + | 2022-08-01 00:00 | Tofacitinib Citrate | [facility] | + + + + | 2022-02-01 00:00 | FLUTICASONE PROPIONATE | [facility] | + + + + | 2022-02-10 00:00 | FLUTICASONE PROPIONATE | [facility] | + + + + | 2022-08-01 00:00 | FLUTICASONE PROPIONATE | [facility] | + + + + | 2022-10-01 00:00 | FLUTICASONE PROPIONATE | [facility] | + + + + | 2022-02-01 00:00 | BACLOFEN | [facility] | + + + + | 2022-02-10 00:00 | BACLOFEN | [facility] | + + + + | 2022-08-01 00:00 | BACLOFEN | [facility] | + + + + | 2022-10-01 00:00 | BACLOFEN | [facility] | + + + + | 2022-08-01 00:00 | CEPHALEXIN | [facility] | + + + + | 2022-02-01 00:00 | DEXAMETHASONE | [facility] | + + + + | 2022-02-10 00:00 | DEXAMETHASONE | [facility] | + + + + | 2022-08-01 00:00 | DEXAMETHASONE | [facility] | + + + + | 2022-10-01 00:00 | DEXAMETHASONE | [facility] | + + + + | 2022-02-01 00:00 | DIAZEPAM | [facility] | + + + + | 2022-02-10 00:00 | DIAZEPAM | [facility] | + + + + | 2022-08-01 00:00 | DIAZEPAM | [facility] | + + + + | 2022-10-01 00:00 | DIAZEPAM | [facility] | + + + + | 2016-07-25 00:00 | IBUPROFEN | [facility] | + + + + | 2016-07-25 00:00 | IBUPROFEN | [facility] | + + + + | 2022-02-01 00:00 | ASCORBIC ACID | [facility] | + + + + | 2022-02-10 00:00 | ASCORBIC ACID | [facility] | + + + + | 2022-08-01 00:00 | ASCORBIC ACID | [facility] | + + + + | 2022-10-01 00:00 | ASCORBIC ACID | [facility] | + + + + | 2017-12-17 00:00 | LORAZEPAM | [facility] | + + + + | 2017-12-17 00:00 | LORAZEPAM | [facility] | + + + + | 2015-07-03 00:00 | OXAPROZIN | [facility] | + + + + | 2015-07-03 00:00 | OXAPROZIN | [facility] | + + + + | 2022-02-01 00:00 | METOCLOPRAMIDE HCL | [facility] | + + + + | 2022-02-10 00:00 | METOCLOPRAMIDE HCL | [facility] | + + + + | 2022-08-01 00:00 | METOCLOPRAMIDE HCL | [facility] | + + + + | 2022-10-01 00:00 | METOCLOPRAMIDE HCL | [facility] | + + + + | 2022-10-01 00:00 | SUMATRIPTAN SUCCINATE | [facility] | + + + + | 2022-02-01 00:00 | RIZATRIPTAN BENZOATE | [facility] | + + + + | 2022-02-10 00:00 | RIZATRIPTAN BENZOATE | [facility] | + + + + | 2022-08-01 00:00 | RIZATRIPTAN BENZOATE | [facility] | + + + + | 2022-10-01 00:00 | RIZATRIPTAN BENZOATE | [facility] | + + + + | 2022-02-01 00:00 | | [facility] | | | CYANOCOBALAMIN/FA/PYRIDOXIN | | | | E | | + + + + | 2022-02-10 00:00 | | [facility] | | | CYANOCOBALAMIN/FA/PYRIDOXIN | | | | E | | + + + + | 2022-08-01 00:00 | | [facility] | | | CYANOCOBALAMIN/FA/PYRIDOXIN | | | | E | | + + + + | 2022-10-01 00:00 | | [facility] | | | CYANOCOBALAMIN/FA/PYRIDOXIN | | | | E | | + + + + | 2022-08-01 00:00 | CLINDAMYCIN PHOSPHATE | [facility] | + + + + | 2022-02-01 00:00 | GABAPENTIN | [facility] | + + + + | 2022-02-10 00:00 | GABAPENTIN | [facility] | + + + + | 2022-08-01 00:00 | GABAPENTIN | [facility] | + + + + | 2022-10-01 00:00 | GABAPENTIN | [facility] | + + + + | 2022-02-01 00:00 | GABAPENTIN | [facility] | + + + + | 2022-02-10 00:00 | GABAPENTIN | [facility] | + + + + | 2022-08-01 00:00 | GABAPENTIN | [facility] | + + + + | 2022-10-01 00:00 | GABAPENTIN | [facility] | + + + + | 2022-10-01 00:00 | LEVETIRACETAM | [facility] | + + + + | 2022-02-01 00:00 | METOCLOPRAMIDE HCL | [facility] | + + + + | 2022-02-10 00:00 | METOCLOPRAMIDE HCL | [facility] | + + + + | 2022-08-01 00:00 | METOCLOPRAMIDE HCL | [facility] | + + + + | 2022-10-01 00:00 | METOCLOPRAMIDE HCL | [facility] | + + + + | 2022-02-01 00:00 | ONDANSETRON | [facility] | + + + + | 2022-02-10 00:00 | ONDANSETRON | [facility] | + + + + | 2022-08-01 00:00 | ONDANSETRON | [facility] | + + + + | 2022-10-01 00:00 | ONDANSETRON | [facility] | + + + + | 2022-02-01 00:00 | RIZATRIPTAN BENZOATE | [facility] | + + + + | 2022-02-10 00:00 | RIZATRIPTAN BENZOATE | [facility] | + + + + | 2022-08-01 00:00 | RIZATRIPTAN BENZOATE | [facility] | + + + + | 2022-10-01 00:00 | RIZATRIPTAN BENZOATE | [facility] | + + + + | 2022-08-01 00:00 | Pregabalin | [facility] | + + + + | 2022-02-01 00:00 | Abatacept/Maltose | [facility] | + + + + | 2022-02-10 00:00 | Abatacept/Maltose | [facility] | + + + + | 2022-08-01 00:00 | Abatacept/Maltose | [facility] | + + + + | 2022-10-01 00:00 | Abatacept/Maltose | [facility] | + + + + | 2014-02-17 00:00 | EPINEPHRINE | [facility] | + + + + | 2014-02-17 00:00 | EPINEPHRINE | [facility] | + + + + | 2022-02-01 00:00 | RIZATRIPTAN BENZOATE | [facility] | + + + + | 2022-02-10 00:00 | RIZATRIPTAN BENZOATE | [facility] | + + + + | 2022-08-01 00:00 | RIZATRIPTAN BENZOATE | [facility] | + + + + | 2022-10-01 00:00 | RIZATRIPTAN BENZOATE | [facility] | + + + + | 2022-02-01 00:00 | DESMOPRESSIN ACETATE | [facility] | + + + + | 2022-02-10 00:00 | DESMOPRESSIN ACETATE | [facility] | + + + + | 2022-08-01 00:00 | DESMOPRESSIN ACETATE | [facility] | + + + + | 2022-10-01 00:00 | DESMOPRESSIN ACETATE | [facility] | + + + + | 2022-02-01 00:00 | CHLORHEXIDINE GLUCONATE | [facility] | + + + + | 2022-02-10 00:00 | CHLORHEXIDINE GLUCONATE | [facility] | + + + + | 2022-08-01 00:00 | CHLORHEXIDINE GLUCONATE | [facility] | + + + + | 2022-10-01 00:00 | CHLORHEXIDINE GLUCONATE | [facility] | + + + + | 2022-02-01 00:00 | ZOLPIDEM TARTRATE | [facility] | + + + + | 2022-02-10 00:00 | ZOLPIDEM TARTRATE | [facility] | + + + + | 2022-08-01 00:00 | ZOLPIDEM TARTRATE | [facility] | + + + + | 2022-10-01 00:00 | ZOLPIDEM TARTRATE | [facility] | + + + + | 2022-02-01 00:00 | AMITRIPTYLINE HCL | [facility] | + + + + | 2022-02-10 00:00 | AMITRIPTYLINE HCL | [facility] | + + + + | 2022-08-01 00:00 | AMITRIPTYLINE HCL | [facility] | + + + + | 2022-10-01 00:00 | AMITRIPTYLINE HCL | [facility] | + + + + | 2015-07-03 00:00 | HYDROCODONE | [facility] | | | BIT/ACETAMINOPHEN | | + + + + | 2015-07-03 00:00 | HYDROCODONE | [facility] | | | BIT/ACETAMINOPHEN | | + + + + | 2022-02-01 00:00 | CLOBETASOL PROPIONATE | [facility] | + + + + | 2022-02-10 00:00 | CLOBETASOL PROPIONATE | [facility] | + + + + | 2022-08-01 00:00 | CLOBETASOL PROPIONATE | [facility] | + + + + | 2015-06-01 00:00 | ONDANSETRON | [facility] | + + + + | 2015-06-01 00:00 | ONDANSETRON | [facility] | + + + + | 2022-10-01 00:00 | PROMETHAZINE HCL | [facility] | + + + + Problems + + + + | date | description | facility | + + + + | 2014-05-21 00:00 | Contusion of hand | [facility] | + + + + | 2014-05-21 00:00 | Contusion of hand | [facility] | + + + + | 2014-05-21 00:00 | Superficial bruising | [facility] | + + + + | 2014-05-21 00:00 | Superficial bruising | [facility] | + + + + | 2014-09-12 00:00 | Headache | [facility] | + + + + | 2014-09-12 00:00 | Headache | [facility] | + + + + | 2015-01-17 00:00 | Tonsillitis | [facility] | + + + + | 2015-01-17 00:00 | Tonsillitis | [facility] | + + + + | 2015-07-03 00:00 | Strain of lumbar region | [facility] | + + + + | 2015-07-03 00:00 | Strain of lumbar region | [facility] | + + + + | 2015-10-08 00:00 | Headache, migraine, | [facility] | | | intractable | | + + + + | 2015-10-08 00:00 | Headache, migraine, | [facility] | | | intractable | | + + + + | 2015-10-08 00:00 | Acute bacterial sinusitis | [facility] | + + + + | 2015-10-08 00:00 | Acute bacterial sinusitis | [facility] | + + + + | 2015-12-30 00:00 | Recurrent occipital | [facility] | | | headache | | + + + + | 2015-12-30 00:00 | Recurrent occipital | [facility] | | | headache | | + + + + | 2016-03-17 00:00 | Migraine headache | [facility] | + + + + | 2016-03-17 00:00 | Migraine headache | [facility] | + + + + | 2016-07-25 00:00 | Sprain of right knee | [facility] | + + + + | 2016-07-25 00:00 | Sprain of right knee | [facility] | + + + + | 2016-11-08 00:00 | Headache | [facility] | + + + + | 2016-11-08 00:00 | Headache | [facility] | + + + + | 2016-11-26 00:00 | Patient left without being | [facility] | | | seen | | + + + + | 2016-11-26 00:00 | Patient left without being | [facility] | | | seen | | + + + + | 2018-04-05 00:00 | Recurrent headache | [facility] | + + + + | 2018-04-05 00:00 | Recurrent headache | [facility] | + + + + | 2021-06-06 00:00 | Memory impairment | [facility] | + + + + | 2021-06-06 00:00 | Memory impairment | [facility] | + + + + | 2022-01-22 00:00 | Migraine without aura | [facility] | + + + + | 2022-01-22 00:00 | Migraine without aura | [facility] | + + + + | 2022-02-09 00:00 | Infection due to severe | [facility] | | | acute respiratory syndrome | | | | coronavirus 2 (SARS-CoV-2) | | + + + + | 2022-02-09 00:00 | Infection due to severe | [facility] | | | acute respiratory syndrome | [...] 2022-08-01 00:00 | Urinary tract infection | [facility] | + + + + | 2022-08-01 00:00 | Urinary tract infection | [facility] | + + + + | 2022-08-01 00:00 | Abnormal vaginal bleeding | [facility] | + + + + | 2022-08-01 00:00 | Abnormal vaginal bleeding | [facility] | + + + + | 2022-08-01 00:00 | Abdominal pain | [facility] | + + + + | 2022-08-01 00:00 | Abdominal pain | [facility] | + + + + | 2022-08-01 09:43 | NICOTINE DEPENDENCE, | [facility] | | | UNSPECIFIED, UNCOMPLICATED | | + + + + | 2022-08-01 09:43 | MIGRAINE, UNSP, NOT | [facility] | | | INTRACTABLE, WITHOUT STATUS | | | | [place] | | + + + + | [...] + + | 2022-08-01 09:43 | OTHER CORRECTION (CURRENT) | [facility] | | | DRUG [...] INTRACTABLE, WITHOUT STATUS | | | | RI | | + + + + | 2022-10-01 17:34 | RHEUMATOID ARTHRITIS, | [facility] | | | UNSPECIFIED | | + + + + | 2022-10-01 17:34 | OTHER CORRECTION (CURRENT) | [facility] | | | DRUG [...] | (unknown) | | | | | Jre | value) | unknown) | | | [...]
[~2023-02-01 22:04] MED LIST changes: +IMITREX25 MG PO; +LEVETIRACETAM500 MG PO; +PROMETHAZINE HC25 M1 PO
--- OUTSIDE RECORDS SUMMARY | 2023-02-01 22:07 | XMS ---
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 Care History Medical/Surgical 04/09/2021 [facility] - CHW CONTACTED DR HANSEN OFFICE- PATIENT HAS AN APT ON 05/13/21 FOR FOLLOW UP APT. - CHW REQUESTED IF PCP COULD POSSIBLY REVIEW MEDICATION ADJUSTMENTS AND OR REFERRAL TO A SPECIALIST DUE TO REOCCURRING MIGRAINES. RN NOTED TO PHYSICIAN. 05/24/2018 [facility] - PATIENT HAS NOT SEEN PCP DR HANSEN SINCE 06/24/2017. PATIENT HAS A LONG HISTORY OF CHRONIC HEADACHES/MIGRAINES. - PATIENT NEEDS TO FOLLOW UP WITH PCP AFTER ED VISIT. - PLEASE REFER PATIENT TO PCP OFFICE FOR CHRONIC CONDITIONS THAT ARE NON EMERGENT. E.D. VISIT COUNT (12 MO.) 4 [facility] TOTAL 4 NOTE: Visits indicate total known visits. ED/UCC VISIT TRACKING (12 MO.) 02/01/2023 22:[address] 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 - Rheumatoid arthritis, unspecified 08/01/2022 09:43 [facility] TYPE: Emergency COMPLAINT: - VAGINAL BLEEDING DIAGNOSES: - Abnormal uterine and vaginal bleeding, unspecified - Allergy status to narcotic agent - Bee allergy status - Fibromyalgia - Migraine, unspecified, not intractable, without status migrainosus - Nicotine dependence, unspecified, uncomplicated - 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
[2023-02-01] MEDS ORDERED: METHOTREXATE2.5 MG PO (22:30)
[2023-02-01] MEDS ORDERED: XELJANZ5 MG PO (22:31)
[2023-02-02 00:20] VITALS: BP 141/90
== END 2023-02-02 00:21 | disposition home or self-care (01) ==
LOC: ED 22:04
DX: G43.909 Migraine, unspecified, not intractable, without status migrainosus (principal); F17.200 Nicotine dependence, unspecified, uncomplicated; Z88.5 Allergy status to narcotic agent; Z88.8 Allergy status to other drugs, medicaments and biological substances; Z91.030 Bee allergy status; Z79.899 Other long term (current) drug therapy
CPT/HCPCS: 96361; 96374; 96375; 99283 25; J0780; J1200; J1885; J7121

== ENCOUNTER 2023-03-19 17:23 | Emergency (ER) | payer MEDICARE, OTHER ==
[~2023-03-19] VITALS: Ht 162.6 cm; Wt 91.1 kg
--- OUTSIDE RECORDS SUMMARY | ~2023-03-19 | XMS | Continuity of Care Document ---
Demographics + + + | Address | [address] | | | [place] [address] | + + + | Preferred Language | Unknown | + + + | Marital Status | | + + + | Yazidi Affiliation | Unknown | + + + | Race | White | + + + | Ethnic Group | Unknown | + + + Author + + + | Author | [facility] | + + + | Organization | [facility] | + + + | Address | [address] | | | [place] [address] | + + + | Phone | | + + + Care Team Providers + + + + | Care Power Electronics Engineer Name | Role | Phone | [...] + | (no date) | CODEINE | [place] | (no reaction) | (no severity) | | | | [place] | | | + + + + [...] + | 2022-02-01 00:00 | MEDROXYPROGESTERONE | [facility] | | | ACETATE | | + + + + | 2022-02-10 00:00 | MEDROXYPROGESTERONE | [facility] | | | ACETATE | | + + + + | 2022-08-01 00:00 | MEDROXYPROGESTERONE | [facility] | | | ACETATE | | + + + + | 2022-10-01 00:00 | MEDROXYPROGESTERONE | [facility] | | | ACETATE | | + + + + | 2023-02-02 00:00 | MEDROXYPROGESTERONE | [facility] | | | ACETATE | | + + + + | 2015-07-03 00:00 | METHOCARBAMOL | [facility] | + + + + | 2015-07-03 00:00 | METHOCARBAMOL | [facility] | + + + + | 2022-02-01 00:00 | CETIRIZINE HCL | [facility] | + + + + | 2022-02-10 00:00 | CETIRIZINE HCL | [facility] | + + + + | 2022-08-01 00:00 | CETIRIZINE HCL | [facility] | + + + + | 2022-10-01 00:00 | CETIRIZINE HCL | [facility] | + + + + | 2023-02-02 00:00 | CETIRIZINE HCL | [facility] | + + + + | 2022-02-01 00:00 | CETIRIZINE HCL | [facility] | + + + + | 2022-02-10 00:00 | CETIRIZINE HCL | [facility] | + + + + | 2022-08-01 00:00 | CETIRIZINE HCL | [facility] | + + + + | 2022-10-01 00:00 | CETIRIZINE HCL | [facility] | + + + + | 2023-02-02 00:00 | CETIRIZINE HCL | [facility] | + + + + | 2022-02-09 00:00 | ONDANSETRON | [facility] | + + + + | 2022-02-01 00:00 | OXYCODONE | [facility] | | | HCL/ACETAMINOPHEN | | + + + + | 2022-02-10 00:00 | OXYCODONE | [facility] | | | HCL/ACETAMINOPHEN | | + + + + | 2022-08-01 00:00 | OXYCODONE | [facility] | | | HCL/ACETAMINOPHEN | | + + + + | 2022-10-01 00:00 | OXYCODONE | [facility] | | | HCL/ACETAMINOPHEN | | + + + + | 2023-02-02 00:00 | OXYCODONE | [facility] | | | HCL/ACETAMINOPHEN | | + + + + | 2022-02-01 00:00 | METHOTREXATE SODIUM | [facility] | + + + + | 2022-02-10 00:00 | METHOTREXATE SODIUM | [facility] | + + + + | 2022-08-01 00:00 | METHOTREXATE SODIUM | [facility] | + + + + | 2022-10-01 00:00 | METHOTREXATE SODIUM | [facility] | + + + + | 2023-02-02 00:00 | METHOTREXATE SODIUM | [facility] | + + + + | 2022-02-01 00:00 | MELATONIN | [facility] | + + + + | 2022-02-10 00:00 | MELATONIN | [facility] | + + + + | 2022-08-01 00:00 | MELATONIN | [facility] | + + + + | 2022-10-01 00:00 | MELATONIN | [facility] | + + + + | 2023-02-02 00:00 | MELATONIN | [facility] | + + + + | 2023-02-02 00:00 | TOFACITINIB CITRATE | [facility] | + + + + | 2022-02-01 00:00 | MONTELUKAST SODIUM | [facility] | + + + + | 2022-02-10 00:00 | MONTELUKAST SODIUM | [facility] | + + + + | 2022-08-01 00:00 | MONTELUKAST SODIUM | [facility] | + + + + | 2022-10-01 00:00 | MONTELUKAST SODIUM | [facility] | + + + + | 2023-02-02 00:00 | MONTELUKAST SODIUM | [facility] | + + + + | 2022-02-01 00:00 | DOXYCYCLINE MONOHYDRATE | [facility] | + + + + | 2022-02-10 00:00 | DOXYCYCLINE MONOHYDRATE | [facility] | + + + + | 2022-08-01 00:00 | DOXYCYCLINE MONOHYDRATE | [facility] | + + + + | 2022-10-01 00:00 | DOXYCYCLINE MONOHYDRATE | [facility] | + + + + | 2023-02-02 00:00 | DOXYCYCLINE MONOHYDRATE | [facility] | + + + + | 2022-02-01 00:00 | Acetaminophen | [facility] | + + + + | 2022-02-10 00:00 | Acetaminophen | [facility] | + + + + | 2022-08-01 00:00 | Acetaminophen | [facility] | + + + + | 2022-10-01 00:00 | Acetaminophen | [facility] | + + + + | 2023-02-02 00:00 | Acetaminophen | [facility] | + + + + | 2022-02-01 00:00 | Tofacitinib Citrate | [facility] | + + + + | 2022-02-10 00:00 | Tofacitinib Citrate | [facility] | + + + + | 2022-08-01 00:00 | Tofacitinib Citrate | [facility] | + + + + | 2022-02-01 00:00 | FLUTICASONE PROPIONATE | [facility] | + + + + | 2022-02-10 00:00 | FLUTICASONE PROPIONATE | [facility] | + + + + | 2022-08-01 00:00 | FLUTICASONE PROPIONATE | [facility] | + + + + | 2022-10-01 00:00 | FLUTICASONE PROPIONATE | [facility] | + + + + | 2023-02-02 00:00 | FLUTICASONE PROPIONATE | [facility] | + + + + | 2022-02-01 00:00 | BACLOFEN | [facility] | + + + + | 2022-02-10 00:00 | BACLOFEN | [facility] | + + + + | 2022-08-01 00:00 | BACLOFEN | [facility] | + + + + | 2022-10-01 00:00 | BACLOFEN | [facility] | + + + + | 2023-02-02 00:00 | BACLOFEN | [facility] | + + + + | 2022-08-01 00:00 | CEPHALEXIN | [facility] | + + + + | 2022-02-01 00:00 | DEXAMETHASONE | [facility] | + + + + | 2022-02-10 00:00 | DEXAMETHASONE | [facility] | + + + + | 2022-08-01 00:00 | DEXAMETHASONE | [facility] | + + + + | 2022-10-01 00:00 | DEXAMETHASONE | [facility] | + + + + | 2023-02-02 00:00 | DEXAMETHASONE | [facility] | + + + + | 2022-02-01 00:00 | DIAZEPAM | [facility] | + + + + | 2022-02-10 00:00 | DIAZEPAM | [facility] | + + + + | 2022-08-01 00:00 | DIAZEPAM | [facility] | + + + + | 2022-10-01 00:00 | DIAZEPAM | [facility] | + + + + | 2023-02-02 00:00 | DIAZEPAM | [facility] | + + + + | 2016-07-25 00:00 | IBUPROFEN | [facility] | + + + + | 2016-07-25 00:00 | IBUPROFEN | [facility] | + + + + | 2022-02-01 00:00 | ASCORBIC ACID | [facility] | + + + + | 2022-02-10 00:00 | ASCORBIC ACID | [facility] | + + + + | 2022-08-01 00:00 | ASCORBIC ACID | [facility] | + + + + | 2022-10-01 00:00 | ASCORBIC ACID | [facility] | + + + + | 2023-02-02 00:00 | ASCORBIC ACID | [facility] | + + + + | 2017-12-17 00:00 | LORAZEPAM | [facility] | + + + + | 2017-12-17 00:00 | LORAZEPAM | [facility] | + + + + | 2015-07-03 00:00 | OXAPROZIN | [facility] | + + + + | 2015-07-03 00:00 | OXAPROZIN | [facility] | + + + + | 2022-02-01 00:00 | METOCLOPRAMIDE HCL | [facility] | + + + + | 2022-02-10 00:00 | METOCLOPRAMIDE HCL | [facility] | + + + + | 2022-08-01 00:00 | METOCLOPRAMIDE HCL | [facility] | + + + + | 2022-10-01 00:00 | METOCLOPRAMIDE HCL | [facility] | + + + + | 2023-02-02 00:00 | METOCLOPRAMIDE HCL | [facility] | + + + + | 2022-10-01 00:00 | SUMATRIPTAN SUCCINATE | [facility] | + + + + | 2022-02-01 00:00 | RIZATRIPTAN BENZOATE | [facility] | + + + + | 2022-02-10 00:00 | RIZATRIPTAN BENZOATE | [facility] | + + + + | 2022-08-01 00:00 | RIZATRIPTAN BENZOATE | [facility] | + + + + | 2022-10-01 00:00 | RIZATRIPTAN BENZOATE | [facility] | + + + + | 2023-02-02 00:00 | RIZATRIPTAN BENZOATE | [facility] | + + + + | 2022-02-01 00:00 | | [facility] | | | CYANOCOBALAMIN/FA/PYRIDOXIN | | | | E | | + + + + | 2022-02-10 00:00 | | [facility] | | | CYANOCOBALAMIN/FA/PYRIDOXIN | | | | E | | + + + + | 2022-08-01 00:00 | | [facility] | | | CYANOCOBALAMIN/FA/PYRIDOXIN | | | | E | | + + + + | 2022-10-01 00:00 | | [facility] | | | CYANOCOBALAMIN/FA/PYRIDOXIN | | | | E | | + + + + | 2023-02-02 00:00 | | [facility] | | | CYANOCOBALAMIN/FA/PYRIDOXIN | | | | E | | + + + + | 2022-08-01 00:00 | CLINDAMYCIN PHOSPHATE | [facility] | + + + + | 2022-02-01 00:00 | GABAPENTIN | [facility] | + + + + | 2022-02-10 00:00 | GABAPENTIN | [facility] | + + + + | 2022-08-01 00:00 | GABAPENTIN | [facility] | + + + + | 2022-10-01 00:00 | GABAPENTIN | [facility] | + + + + | 2023-02-02 00:00 | GABAPENTIN | [facility] | + + + + | 2022-02-01 00:00 | GABAPENTIN | [facility] | + + + + | 2022-02-10 00:00 | GABAPENTIN | [facility] | + + + + | 2022-08-01 00:00 | GABAPENTIN | [facility] | + + + + | 2022-10-01 00:00 | GABAPENTIN | [facility] | + + + + | 2023-02-02 00:00 | GABAPENTIN | [facility] | + + + + | 2022-10-01 00:00 | LEVETIRACETAM | [facility] | + + + + | 2023-02-02 00:00 | LEVETIRACETAM | [facility] | + + + + | 2022-02-01 00:00 | METOCLOPRAMIDE HCL | [facility] | + + + + | 2022-02-10 00:00 | METOCLOPRAMIDE HCL | [facility] | + + + + | 2022-08-01 00:00 | METOCLOPRAMIDE HCL | [facility] | + + + + | 2022-10-01 00:00 | METOCLOPRAMIDE HCL | [facility] | + + + + | 2023-02-02 00:00 | METOCLOPRAMIDE HCL | [facility] | + + + + | 2022-02-01 00:00 | ONDANSETRON | [facility] | + + + + | 2022-02-10 00:00 | ONDANSETRON | [facility] | + + + + | 2022-08-01 00:00 | ONDANSETRON | [facility] | + + + + | 2022-10-01 00:00 | ONDANSETRON | [facility] | + + + + | 2023-02-02 00:00 | ONDANSETRON | [facility] | + + + + | 2022-02-01 00:00 | RIZATRIPTAN BENZOATE | [facility] | + + + + | 2022-02-10 00:00 | RIZATRIPTAN BENZOATE | [facility] | + + + + | 2022-08-01 00:00 | RIZATRIPTAN BENZOATE | [facility] | + + + + | 2022-10-01 00:00 | RIZATRIPTAN BENZOATE | [facility] | + + + + | 2023-02-02 00:00 | RIZATRIPTAN BENZOATE | [facility] | + + + + | 2022-08-01 00:00 | Pregabalin | [facility] | + + + + | 2022-02-01 00:00 | Abatacept/Maltose | [facility] | + + + + | 2022-02-10 00:00 | Abatacept/Maltose | [facility] | + + + + | 2022-08-01 00:00 | Abatacept/Maltose | [facility] | + + + + | 2022-10-01 00:00 | Abatacept/Maltose | [facility] | + + + + | 2023-02-02 00:00 | Abatacept/Maltose | [facility] | + + + + | 2014-02-17 00:00 | EPINEPHRINE | [facility] | + + + + | 2014-02-17 00:00 | EPINEPHRINE | [facility] | + + + + | 2022-02-01 00:00 | RIZATRIPTAN BENZOATE | [facility] | + + + + | 2022-02-10 00:00 | RIZATRIPTAN BENZOATE | [facility] | + + + + | 2022-08-01 00:00 | RIZATRIPTAN BENZOATE | [facility] | + + + + | 2022-10-01 00:00 | RIZATRIPTAN BENZOATE | [facility] | + + + + | 2023-02-02 00:00 | RIZATRIPTAN BENZOATE | [facility] | + + + + | 2022-02-01 00:00 | DESMOPRESSIN ACETATE | [facility] | + + + + | 2022-02-10 00:00 | DESMOPRESSIN ACETATE | [facility] | + + + + | 2022-08-01 00:00 | DESMOPRESSIN ACETATE | [facility] | + + + + | 2022-10-01 00:00 | DESMOPRESSIN ACETATE | [facility] | + + + + | 2023-02-02 00:00 | DESMOPRESSIN ACETATE | [facility] | + + + + | 2022-02-01 00:00 | CHLORHEXIDINE GLUCONATE | [facility] | + + + + | 2022-02-10 00:00 | CHLORHEXIDINE GLUCONATE | [facility] | + + + + | 2022-08-01 00:00 | CHLORHEXIDINE GLUCONATE | [facility] | + + + + | 2022-10-01 00:00 | CHLORHEXIDINE GLUCONATE | [facility] | + + + + | 2023-02-02 00:00 | CHLORHEXIDINE GLUCONATE | [facility] | + + + + | 2022-02-01 00:00 | ZOLPIDEM TARTRATE | [facility] | + + + + | 2022-02-10 00:00 | ZOLPIDEM TARTRATE | [facility] | + + + + | 2022-08-01 00:00 | ZOLPIDEM TARTRATE | [facility] | + + + + | 2022-10-01 00:00 | ZOLPIDEM TARTRATE | [facility] | + + + + | 2023-02-02 00:00 | ZOLPIDEM TARTRATE | [facility] | + + + + | 2022-02-01 00:00 | AMITRIPTYLINE HCL | [facility] | + + + + | 2022-02-10 00:00 | AMITRIPTYLINE HCL | [facility] | + + + + | 2022-08-01 00:00 | AMITRIPTYLINE HCL | [facility] | + + + + | 2022-10-01 00:00 | AMITRIPTYLINE HCL | [facility] | + + + + | 2023-02-02 00:00 | AMITRIPTYLINE HCL | [facility] | + + + + | 2015-07-03 00:00 | HYDROCODONE | [facility] | | | BIT/ACETAMINOPHEN | | + + + + | 2015-07-03 00:00 | HYDROCODONE | [facility] | | | BIT/ACETAMINOPHEN | | + + + + | 2022-02-01 00:00 | CLOBETASOL PROPIONATE | [facility] | + + + + | 2022-02-10 00:00 | CLOBETASOL PROPIONATE | [facility] | + + + + | 2022-08-01 00:00 | CLOBETASOL PROPIONATE | [facility] | + + + + | 2015-06-01 00:00 | ONDANSETRON | [facility] | + + + + | 2015-06-01 00:00 | ONDANSETRON | [facility] | + + + + | 2022-10-01 00:00 | PROMETHAZINE HCL | [facility] | + + + + Problems + + + + | date | description | facility | + + + + | 2014-05-21 00:00 | Contusion of hand | [facility] | + + + + | 2014-05-21 00:00 | Contusion of hand | [facility] | + + + + | 2014-05-21 00:00 | Superficial bruising | [facility] | + + + + | 2014-05-21 00:00 | Superficial bruising | [facility] | + + + + | 2014-09-12 00:00 | Headache | [facility] | + + + + | 2014-09-12 00:00 | Headache | [facility] | + + + + | 2015-01-17 00:00 | Tonsillitis | [facility] | + + + + | 2015-01-17 00:00 | Tonsillitis | [facility] | + + + + | 2015-07-03 00:00 | Strain of lumbar region | [facility] | + + + + | 2015-07-03 00:00 | Strain of lumbar region | [facility] | + + + + | 2015-10-08 00:00 | Headache, migraine, | [facility] | | | intractable | | + + + + | 2015-10-08 00:00 | Headache, migraine, | [facility] | | | intractable | | + + + + | 2015-10-08 00:00 | Acute bacterial sinusitis | [facility] | + + + + | 2015-10-08 00:00 | Acute bacterial sinusitis | [facility] | + + + + | 2015-12-30 00:00 | Recurrent occipital | [facility] | | | headache | | + + + + | 2015-12-30 00:00 | Recurrent occipital | [facility] | | | headache | | + + + + | 2016-03-17 00:00 | Migraine headache | [facility] | + + + + | 2016-03-17 00:00 | Migraine headache | [facility] | + + + + | 2016-07-25 00:00 | Sprain of right knee | [facility] | + + + + | 2016-07-25 00:00 | Sprain of right knee | [facility] | + + + + | 2016-11-08 00:00 | Headache | [facility] | + + + + | 2016-11-08 00:00 | Headache | [facility] | + + + + | 2016-11-26 00:00 | Patient left without being | [facility] | | | seen | | + + + + | 2016-11-26 00:00 | Patient left without being | [facility] | | | seen | | + + + + | 2018-04-05 00:00 | Recurrent headache | [facility] | + + + + | 2018-04-05 00:00 | Recurrent headache | [facility] | + + + + | 2021-06-06 00:00 | Memory impairment | [facility] | + + + + | 2021-06-06 00:00 | Memory impairment | [facility] | + + + + | 2022-01-22 00:00 | Migraine without aura | [facility] | + + + + | 2022-01-22 00:00 | Migraine without aura | [facility] | + + + + | 2022-02-09 00:00 | Infection due to severe | [facility] | | | acute respiratory syndrome | | | | coronavirus 2 (SARS-CoV-2) | | + + + + | 2022-02-09 00:00 | Infection due to severe | [facility] | | | acute respiratory syndrome | [...] 2022-08-01 00:00 | Urinary tract infection | [facility] | + + + + | 2022-08-01 00:00 | Urinary tract infection | [facility] | + + + + | 2022-08-01 00:00 | Abnormal vaginal bleeding | [facility] | + + + + | 2022-08-01 00:00 | Abnormal vaginal bleeding | [facility] | + + + + | 2022-08-01 00:00 | Abdominal pain | [facility] | + + + + | 2022-08-01 00:00 | Abdominal pain | [facility] | + + + + | 2022-08-01 09:43 | NICOTINE DEPENDENCE, | [facility] | | | UNSPECIFIED, UNCOMPLICATED | | + + + + | 2022-08-01 09:43 | MIGRAINE, UNSP, NOT | [facility] | | | INTRACTABLE, WITHOUT STATUS | | | | [facility] | | + + + + | [...] + + | 2022-08-01 09:43 | OTHER SENIOR CARE (CURRENT) | [facility] | | | DRUG [...] INTRACTABLE, WITHOUT STATUS | | | | [facility] | | + + + + | 2022-10-01 17:34 | RHEUMATOID ARTHRITIS, | [facility] | | | UNSPECIFIED | | + + + + | 2022-10-01 17:34 | OTHER SENIOR CARE (CURRENT) | [facility] | | | DRUG [...] + + | 2023-02-01 22:05 | OTHER LOGISTICAL ENGINEER (CURRENT) | [facility] | | | DRUG [...] | 2023-02-28 11:01:33 | Fall | [facility] | + + + + | 2023-02-28 11:04:02 | Fall | [facility] [place] | + + + + | 2023-02-28 11:38:37 | Fall | [facility] [place] | + + + + | 2023-02-28 11:53:55 | Unspecified sprain of left | [facility] [place] | | | foot, initial encounter | | + + + + | 2023-02-28 11:53:55 | Unspecified fall, initial | [facility] [place] | | | encounter | | + + + + | 2023-02-28 11:58:18 | Unspecified sprain of left | [facility] [place] | | | foot, initial encounter | | + + + + | 2023-02-28 11:58:18 | Unspecified fall, initial | [facility] [place] | | | encounter | | + + + + | 2023-02-28 12:18:35 | Unspecified sprain of left | [facility] [place] | | | foot, initial encounter | | + + + + | 2023-02-28 12:18:35 | Unspecified fall, initial | [facility] [place] | | | encounter | | + + + + | 2023-02-28 13:20:43 | Unspecified sprain of left | [facility] | | | foot, initial encounter | | + + + + | 2023-02-28 13:20:43 | Unspecified fall, initial | [facility] [place] | | | encounter | | + + + + | 2023-03-03 13:37:05 | Unspecified sprain of left | [facility] | | | foot, initial encounter | | + + + + | 2023-03-03 13:37:05 | Unspecified fall, initial | [facility] [place] | | | encounter | | + + + + | 2023-03-03 13:38:26 | Unspecified sprain of left | [facility] | | | foot, initial encounter | | + + + + | 2023-03-03 13:38:26 | Unspecified fall, initial | [facility] [place] | | | encounter | | + + + + | 2023-03-13 15:52 | PAIN IN RIGHT ANKLE AND | [facility] | | | JOINTS OF RIGHT FOOT | | + + + + Procedures [...] | | | ) | | | Hasenauer, | | | | | | | M.D. on | | | | | | [...] | | | ) | | | [facility] | | | | | | | [...] | | | ) | | | [facility] | | | [...] | | | ) | | | [place] | | | | | | | [...] 200 | lb | + + + +---------+"
--- OUTSIDE RECORDS SUMMARY | ~2023-03-19 | XMS | Continuity of Care Document ---
Demographics + + + | Address | [address] | | | [place] [address] | + + + | Preferred Language | Unknown | + + + | Marital Status | | + + + | Sabianist Affiliation | Unknown | + + + | Race | White | + + + | Ethnic Group | Unknown | + + + Author + + + | Author | [facility] | + + + | Organization | [facility] | + + + | Address | [address] | | | [place] [address] | + + + | Phone | | + + + Care Team Providers + + + + | Care Scrap Baller Name | Role | Phone | + [...] + | (no date) | CODEINE | [place] | (no reaction) | (no severity) | | | | [place] | | | + + + + [...] + | 2022-02-01 00:00 | MEDROXYPROGESTERONE | [facility] | | | ACETATE | | + + + + | 2022-02-10 00:00 | MEDROXYPROGESTERONE | [facility] | | | ACETATE | | + + + + | 2022-08-01 00:00 | MEDROXYPROGESTERONE | [facility] | | | ACETATE | | + + + + | 2022-10-01 00:00 | MEDROXYPROGESTERONE | [facility] | | | ACETATE | | + + + + | 2023-02-02 00:00 | MEDROXYPROGESTERONE | [facility] | | | ACETATE | | + + + + | 2015-07-03 00:00 | METHOCARBAMOL | [facility] | + + + + | 2015-07-03 00:00 | METHOCARBAMOL | [facility] | + + + + | 2022-02-01 00:00 | CETIRIZINE HCL | [facility] | + + + + | 2022-02-10 00:00 | CETIRIZINE HCL | [facility] | + + + + | 2022-08-01 00:00 | CETIRIZINE HCL | [facility] | + + + + | 2022-10-01 00:00 | CETIRIZINE HCL | [facility] | + + + + | 2023-02-02 00:00 | CETIRIZINE HCL | [facility] | + + + + | 2022-02-01 00:00 | CETIRIZINE HCL | [facility] | + + + + | 2022-02-10 00:00 | CETIRIZINE HCL | [facility] | + + + + | 2022-08-01 00:00 | CETIRIZINE HCL | [facility] | + + + + | 2022-10-01 00:00 | CETIRIZINE HCL | [facility] | + + + + | 2023-02-02 00:00 | CETIRIZINE HCL | [facility] | + + + + | 2022-02-09 00:00 | ONDANSETRON | [facility] | + + + + | 2022-02-01 00:00 | OXYCODONE | [facility] | | | HCL/ACETAMINOPHEN | | + + + + | 2022-02-10 00:00 | OXYCODONE | [facility] | | | HCL/ACETAMINOPHEN | | + + + + | 2022-08-01 00:00 | OXYCODONE | [facility] | | | HCL/ACETAMINOPHEN | | + + + + | 2022-10-01 00:00 | OXYCODONE | [facility] | | | HCL/ACETAMINOPHEN | | + + + + | 2023-02-02 00:00 | OXYCODONE | [facility] | | | HCL/ACETAMINOPHEN | | + + + + | 2022-02-01 00:00 | METHOTREXATE SODIUM | [facility] | + + + + | 2022-02-10 00:00 | METHOTREXATE SODIUM | [facility] | + + + + | 2022-08-01 00:00 | METHOTREXATE SODIUM | [facility] | + + + + | 2022-10-01 00:00 | METHOTREXATE SODIUM | [facility] | + + + + | 2023-02-02 00:00 | METHOTREXATE SODIUM | [facility] | + + + + | 2022-02-01 00:00 | MELATONIN | [facility] | + + + + | 2022-02-10 00:00 | MELATONIN | [facility] | + + + + | 2022-08-01 00:00 | MELATONIN | [facility] | + + + + | 2022-10-01 00:00 | MELATONIN | [facility] | + + + + | 2023-02-02 00:00 | MELATONIN | [facility] | + + + + | 2023-02-02 00:00 | TOFACITINIB CITRATE | [facility] | + + + + | 2022-02-01 00:00 | MONTELUKAST SODIUM | [facility] | + + + + | 2022-02-10 00:00 | MONTELUKAST SODIUM | [facility] | + + + + | 2022-08-01 00:00 | MONTELUKAST SODIUM | [facility] | + + + + | 2022-10-01 00:00 | MONTELUKAST SODIUM | [facility] | + + + + | 2023-02-02 00:00 | MONTELUKAST SODIUM | [facility] | + + + + | 2022-02-01 00:00 | DOXYCYCLINE MONOHYDRATE | [facility] | + + + + | 2022-02-10 00:00 | DOXYCYCLINE MONOHYDRATE | [facility] | + + + + | 2022-08-01 00:00 | DOXYCYCLINE MONOHYDRATE | [facility] | + + + + | 2022-10-01 00:00 | DOXYCYCLINE MONOHYDRATE | [facility] | + + + + | 2023-02-02 00:00 | DOXYCYCLINE MONOHYDRATE | [facility] | + + + + | 2022-02-01 00:00 | Acetaminophen | [facility] | + + + + | 2022-02-10 00:00 | Acetaminophen | [facility] | + + + + | 2022-08-01 00:00 | Acetaminophen | [facility] | + + + + | 2022-10-01 00:00 | Acetaminophen | [facility] | + + + + | 2023-02-02 00:00 | Acetaminophen | [facility] | + + + + | 2022-02-01 00:00 | Tofacitinib Citrate | [facility] | + + + + | 2022-02-10 00:00 | Tofacitinib Citrate | [facility] | + + + + | 2022-08-01 00:00 | Tofacitinib Citrate | [facility] | + + + + | 2022-02-01 00:00 | FLUTICASONE PROPIONATE | [facility] | + + + + | 2022-02-10 00:00 | FLUTICASONE PROPIONATE | [facility] | + + + + | 2022-08-01 00:00 | FLUTICASONE PROPIONATE | [facility] | + + + + | 2022-10-01 00:00 | FLUTICASONE PROPIONATE | [facility] | + + + + | 2023-02-02 00:00 | FLUTICASONE PROPIONATE | [facility] | + + + + | 2022-02-01 00:00 | BACLOFEN | [facility] | + + + + | 2022-02-10 00:00 | BACLOFEN | [facility] | + + + + | 2022-08-01 00:00 | BACLOFEN | [facility] | + + + + | 2022-10-01 00:00 | BACLOFEN | [facility] | + + + + | 2023-02-02 00:00 | BACLOFEN | [facility] | + + + + | 2022-08-01 00:00 | CEPHALEXIN | [facility] | + + + + | 2022-02-01 00:00 | DEXAMETHASONE | [facility] | + + + + | 2022-02-10 00:00 | DEXAMETHASONE | [facility] | + + + + | 2022-08-01 00:00 | DEXAMETHASONE | [facility] | + + + + | 2022-10-01 00:00 | DEXAMETHASONE | [facility] | + + + + | 2023-02-02 00:00 | DEXAMETHASONE | [facility] | + + + + | 2022-02-01 00:00 | DIAZEPAM | [facility] | + + + + | 2022-02-10 00:00 | DIAZEPAM | [facility] | + + + + | 2022-08-01 00:00 | DIAZEPAM | [facility] | + + + + | 2022-10-01 00:00 | DIAZEPAM | [facility] | + + + + | 2023-02-02 00:00 | DIAZEPAM | [facility] | + + + + | 2016-07-25 00:00 | IBUPROFEN | [facility] | + + + + | 2016-07-25 00:00 | IBUPROFEN | [facility] | + + + + | 2022-02-01 00:00 | ASCORBIC ACID | [facility] | + + + + | 2022-02-10 00:00 | ASCORBIC ACID | [facility] | + + + + | 2022-08-01 00:00 | ASCORBIC ACID | [facility] | + + + + | 2022-10-01 00:00 | ASCORBIC ACID | [facility] | + + + + | 2023-02-02 00:00 | ASCORBIC ACID | [facility] | + + + + | 2017-12-17 00:00 | LORAZEPAM | [facility] | + + + + | 2017-12-17 00:00 | LORAZEPAM | [facility] | + + + + | 2015-07-03 00:00 | OXAPROZIN | [facility] | + + + + | 2015-07-03 00:00 | OXAPROZIN | [facility] | + + + + | 2022-02-01 00:00 | METOCLOPRAMIDE HCL | [facility] | + + + + | 2022-02-10 00:00 | METOCLOPRAMIDE HCL | [facility] | + + + + | 2022-08-01 00:00 | METOCLOPRAMIDE HCL | [facility] | + + + + | 2022-10-01 00:00 | METOCLOPRAMIDE HCL | [facility] | + + + + | 2023-02-02 00:00 | METOCLOPRAMIDE HCL | [facility] | + + + + | 2022-10-01 00:00 | SUMATRIPTAN SUCCINATE | [facility] | + + + + | 2022-02-01 00:00 | RIZATRIPTAN BENZOATE | [facility] | + + + + | 2022-02-10 00:00 | RIZATRIPTAN BENZOATE | [facility] | + + + + | 2022-08-01 00:00 | RIZATRIPTAN BENZOATE | [facility] | + + + + | 2022-10-01 00:00 | RIZATRIPTAN BENZOATE | [facility] | + + + + | 2023-02-02 00:00 | RIZATRIPTAN BENZOATE | [facility] | + + + + | 2022-02-01 00:00 | | [facility] | | | CYANOCOBALAMIN/FA/PYRIDOXIN | | | | E | | + + + + | 2022-02-10 00:00 | | [facility] | | | CYANOCOBALAMIN/FA/PYRIDOXIN | | | | E | | + + + + | 2022-08-01 00:00 | | [facility] | | | CYANOCOBALAMIN/FA/PYRIDOXIN | | | | E | | + + + + | 2022-10-01 00:00 | | [facility] | | | CYANOCOBALAMIN/FA/PYRIDOXIN | | | | E | | + + + + | 2023-02-02 00:00 | | [facility] | | | CYANOCOBALAMIN/FA/PYRIDOXIN | | | | E | | + + + + | 2022-08-01 00:00 | CLINDAMYCIN PHOSPHATE | [facility] | + + + + | 2022-02-01 00:00 | GABAPENTIN | [facility] | + + + + | 2022-02-10 00:00 | GABAPENTIN | [facility] | + + + + | 2022-08-01 00:00 | GABAPENTIN | [facility] | + + + + | 2022-10-01 00:00 | GABAPENTIN | [facility] | + + + + | 2023-02-02 00:00 | GABAPENTIN | [facility] | + + + + | 2022-02-01 00:00 | GABAPENTIN | [facility] | + + + + | 2022-02-10 00:00 | GABAPENTIN | [facility] | + + + + | 2022-08-01 00:00 | GABAPENTIN | [facility] | + + + + | 2022-10-01 00:00 | GABAPENTIN | [facility] | + + + + | 2023-02-02 00:00 | GABAPENTIN | [facility] | + + + + | 2022-10-01 00:00 | LEVETIRACETAM | [facility] | + + + + | 2023-02-02 00:00 | LEVETIRACETAM | [facility] | + + + + | 2022-02-01 00:00 | METOCLOPRAMIDE HCL | [facility] | + + + + | 2022-02-10 00:00 | METOCLOPRAMIDE HCL | [facility] | + + + + | 2022-08-01 00:00 | METOCLOPRAMIDE HCL | [facility] | + + + + | 2022-10-01 00:00 | METOCLOPRAMIDE HCL | [facility] | + + + + | 2023-02-02 00:00 | METOCLOPRAMIDE HCL | [facility] | + + + + | 2022-02-01 00:00 | ONDANSETRON | [facility] | + + + + | 2022-02-10 00:00 | ONDANSETRON | [facility] | + + + + | 2022-08-01 00:00 | ONDANSETRON | [facility] | + + + + | 2022-10-01 00:00 | ONDANSETRON | [facility] | + + + + | 2023-02-02 00:00 | ONDANSETRON | [facility] | + + + + | 2022-02-01 00:00 | RIZATRIPTAN BENZOATE | [facility] | + + + + | 2022-02-10 00:00 | RIZATRIPTAN BENZOATE | [facility] | + + + + | 2022-08-01 00:00 | RIZATRIPTAN BENZOATE | [facility] | + + + + | 2022-10-01 00:00 | RIZATRIPTAN BENZOATE | [facility] | + + + + | 2023-02-02 00:00 | RIZATRIPTAN BENZOATE | [facility] | + + + + | 2022-08-01 00:00 | Pregabalin | [facility] | + + + + | 2022-02-01 00:00 | Abatacept/Maltose | [facility] | + + + + | 2022-02-10 00:00 | Abatacept/Maltose | [facility] | + + + + | 2022-08-01 00:00 | Abatacept/Maltose | [facility] | + + + + | 2022-10-01 00:00 | Abatacept/Maltose | [facility] | + + + + | 2023-02-02 00:00 | Abatacept/Maltose | [facility] | + + + + | 2014-02-17 00:00 | EPINEPHRINE | [facility] | + + + + | 2014-02-17 00:00 | EPINEPHRINE | [facility] | + + + + | 2022-02-01 00:00 | RIZATRIPTAN BENZOATE | [facility] | + + + + | 2022-02-10 00:00 | RIZATRIPTAN BENZOATE | [facility] | + + + + | 2022-08-01 00:00 | RIZATRIPTAN BENZOATE | [facility] | + + + + | 2022-10-01 00:00 | RIZATRIPTAN BENZOATE | [facility] | + + + + | 2023-02-02 00:00 | RIZATRIPTAN BENZOATE | [facility] | + + + + | 2022-02-01 00:00 | DESMOPRESSIN ACETATE | [facility] | + + + + | 2022-02-10 00:00 | DESMOPRESSIN ACETATE | [facility] | + + + + | 2022-08-01 00:00 | DESMOPRESSIN ACETATE | [facility] | + + + + | 2022-10-01 00:00 | DESMOPRESSIN ACETATE | [facility] | + + + + | 2023-02-02 00:00 | DESMOPRESSIN ACETATE | [facility] | + + + + | 2022-02-01 00:00 | CHLORHEXIDINE GLUCONATE | [facility] | + + + + | 2022-02-10 00:00 | CHLORHEXIDINE GLUCONATE | [facility] | + + + + | 2022-08-01 00:00 | CHLORHEXIDINE GLUCONATE | [facility] | + + + + | 2022-10-01 00:00 | CHLORHEXIDINE GLUCONATE | [facility] | + + + + | 2023-02-02 00:00 | CHLORHEXIDINE GLUCONATE | [facility] | + + + + | 2022-02-01 00:00 | ZOLPIDEM TARTRATE | [facility] | + + + + | 2022-02-10 00:00 | ZOLPIDEM TARTRATE | [facility] | + + + + | 2022-08-01 00:00 | ZOLPIDEM TARTRATE | [facility] | + + + + | 2022-10-01 00:00 | ZOLPIDEM TARTRATE | [facility] | + + + + | 2023-02-02 00:00 | ZOLPIDEM TARTRATE | [facility] | + + + + | 2022-02-01 00:00 | AMITRIPTYLINE HCL | [facility] | + + + + | 2022-02-10 00:00 | AMITRIPTYLINE HCL | [facility] | + + + + | 2022-08-01 00:00 | AMITRIPTYLINE HCL | [facility] | + + + + | 2022-10-01 00:00 | AMITRIPTYLINE HCL | [facility] | + + + + | 2023-02-02 00:00 | AMITRIPTYLINE HCL | [facility] | + + + + | 2015-07-03 00:00 | HYDROCODONE | [facility] | | | BIT/ACETAMINOPHEN | | + + + + | 2015-07-03 00:00 | HYDROCODONE | [facility] | | | BIT/ACETAMINOPHEN | | + + + + | 2022-02-01 00:00 | CLOBETASOL PROPIONATE | [facility] | + + + + | 2022-02-10 00:00 | CLOBETASOL PROPIONATE | [facility] | + + + + | 2022-08-01 00:00 | CLOBETASOL PROPIONATE | [facility] | + + + + | 2015-06-01 00:00 | ONDANSETRON | [facility] | + + + + | 2015-06-01 00:00 | ONDANSETRON | [facility] | + + + + | 2022-10-01 00:00 | PROMETHAZINE HCL | [facility] | + + + + Problems + + + + | date | description | facility | + + + + | 2014-05-21 00:00 | Contusion of hand | [facility] | + + + + | 2014-05-21 00:00 | Contusion of hand | [facility] | + + + + | 2014-05-21 00:00 | Superficial bruising | [facility] | + + + + | 2014-05-21 00:00 | Superficial bruising | [facility] | + + + + | 2014-09-12 00:00 | Headache | [facility] | + + + + | 2014-09-12 00:00 | Headache | [facility] | + + + + | 2015-01-17 00:00 | Tonsillitis | [facility] | + + + + | 2015-01-17 00:00 | Tonsillitis | [facility] | + + + + | 2015-07-03 00:00 | Strain of lumbar region | [facility] | + + + + | 2015-07-03 00:00 | Strain of lumbar region | [facility] | + + + + | 2015-10-08 00:00 | Headache, migraine, | [facility] | | | intractable | | + + + + | 2015-10-08 00:00 | Headache, migraine, | [facility] | | | intractable | | + + + + | 2015-10-08 00:00 | Acute bacterial sinusitis | [facility] | + + + + | 2015-10-08 00:00 | Acute bacterial sinusitis | [facility] | + + + + | 2015-12-30 00:00 | Recurrent occipital | [facility] | | | headache | | + + + + | 2015-12-30 00:00 | Recurrent occipital | [facility] | | | headache | | + + + + | 2016-03-17 00:00 | Migraine headache | [facility] | + + + + | 2016-03-17 00:00 | Migraine headache | [facility] | + + + + | 2016-07-25 00:00 | Sprain of right knee | [facility] | + + + + | 2016-07-25 00:00 | Sprain of right knee | [facility] | + + + + | 2016-11-08 00:00 | Headache | [facility] | + + + + | 2016-11-08 00:00 | Headache | [facility] | + + + + | 2016-11-26 00:00 | Patient left without being | [facility] | | | seen | | + + + + | 2016-11-26 00:00 | Patient left without being | [facility] | | | seen | | + + + + | 2018-04-05 00:00 | Recurrent headache | [facility] | + + + + | 2018-04-05 00:00 | Recurrent headache | [facility] | + + + + | 2021-06-06 00:00 | Memory impairment | [facility] | + + + + | 2021-06-06 00:00 | Memory impairment | [facility] | + + + + | 2022-01-22 00:00 | Migraine without aura | [facility] | + + + + | 2022-01-22 00:00 | Migraine without aura | [facility] | + + + + | 2022-02-09 00:00 | Infection due to severe | [facility] | | | acute respiratory syndrome | | | | coronavirus 2 (SARS-CoV-2) | | + + + + | 2022-02-09 00:00 | Infection due to severe | [facility] | | | acute respiratory syndrome | [...] 2022-08-01 00:00 | Urinary tract infection | [facility] | + + + + | 2022-08-01 00:00 | Urinary tract infection | [facility] | + + + + | 2022-08-01 00:00 | Abnormal vaginal bleeding | [facility] | + + + + | 2022-08-01 00:00 | Abnormal vaginal bleeding | [facility] | + + + + | 2022-08-01 00:00 | Abdominal pain | [facility] | + + + + | 2022-08-01 00:00 | Abdominal pain | [facility] | + + + + | 2022-08-01 [...] + + | 2022-08-01 09:43 | OTHER SKILLED NURSING (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) | [facility] | | | DRUG [...] + + | 2022-10-01 17:34 | OTHER SKILLED NURSING (CURRENT) | [facility] | | | DRUG [...] + + | 2023-02-01 22:05 | 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) | [facility] | | | DRUG [...] + | 2023-02-28 11:38:37 | Fall | [facility] [place] | + + + + | 2023-02-28 11:53:55 | Unspecified sprain of left | [facility] [place] | | | foot, initial encounter | | + + + + | 2023-02-28 11:53:55 | Unspecified fall, initial | [facility] [place] | | | encounter | | + + + + | 2023-02-28 11:58:18 | Unspecified sprain of left | [facility] [place] | | | foot, initial encounter | | + + + + | 2023-02-28 11:58:18 | Unspecified fall, initial | [facility] [place] | | | encounter | | + + + + | 2023-02-28 12:18:35 | Unspecified sprain of left | [facility] [place] | | | foot, initial encounter | | + + + + | 2023-02-28 12:18:35 | Unspecified fall, initial | [facility] [place] | | | encounter | | + + + + | 2023-02-28 13:20:43 | Unspecified sprain of left | [facility] [place] | | | foot, initial encounter | | + + + + | 2023-02-28 13:20:43 | Unspecified fall, initial | [facility] [place] | | | encounter | | + + + + | 2023-03-03 13:37:05 | Unspecified sprain of left | [facility] [place] | | | foot, initial encounter | | + + + + | 2023-03-03 13:37:05 | Unspecified fall, initial | [facility] [place] | | | encounter | | + + + + | 2023-03-03 13:38:26 | Unspecified sprain of left | [facility] [place] | | | foot, initial encounter | | + + + + | 2023-03-03 13:38:26 | Unspecified fall, initial | [facility] [place] | | | encounter | | + [...] | | | ) | | | [facility] | | | | | | | [...] | | | ) | | | [facility] | | | | | | | [...]
[~2023-03-19 17:23] MED LIST changes: +XELJANZ5 MG PO
--- OUTSIDE RECORDS SUMMARY | 2023-03-19 17:27 | XMS ---
PreManage Notification: SANJEEV BENITEZ Security [employer] Events No recent Security Events currently on file CRITERIA MET - Group Notification - [facility] - 2 Visits in 30 Days CARE PROVIDERS TYRONE [facility] 09/02/2019-Current PHONE: Unknown Emma has no Care Guidelines for this patient. Care History Medical/Surgical 04/09/2021 [facility] - CHW CONTACTED DR HANSEN OFFICE- PATIENT HAS AN APT ON 05/13/21 FOR FOLLOW UP APT. - [facility] REQUESTED IF PCP COULD POSSIBLY REVIEW MEDICATION ADJUSTMENTS AND OR REFERRAL TO A SPECIALIST DUE TO REOCCURRING MIGRAINES. RN NOTED TO PHYSICIAN. 05/24/2018 [facility] - PATIENT HAS NOT SEEN PCP DR HANSEN SINCE 06/24/2017. PATIENT HAS A LONG HISTORY OF CHRONIC HEADACHES/MIGRAINES. - PATIENT NEEDS TO FOLLOW UP WITH PCP AFTER ED VISIT. - PLEASE REFER PATIENT TO PCP OFFICE FOR CHRONIC CONDITIONS THAT ARE NON EMERGENT. E.D. VISIT COUNT (12 MO.) 4 [facility] 1 [facility] TOTAL 5 NOTE: Visits indicate total known visits. ED/UCC VISIT TRACKING (12 MO.) 2023 17:23 [facility] TYPE: Emergency COMPLAINT: - HEADACHE 02/28/2023 10:39 [facility] TYPE: Emergency DIAGNOSES: - Unspecified fall, initial encounter - Unspecified sprain of left foot, initial encounter 02/01/2023 22:05 [facility] TYPE: Emergency COMPLAINT: - MIGRAINE DIAGNOSES: - Allergy status to narcotic agent - Allergy status to other drugs, medicaments and biological substances - Bee allergy status - Migraine, unspecified, not intractable, without status migrainosus - Nicotine dependence, unspecified, uncomplicated - 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 [place] TYPE: Emergency COMPLAINT: - VAGINAL BLEEDING DIAGNOSES: - Abnormal uterine and vaginal bleeding, unspecified - Allergy status to narcotic agent - Bee allergy status - Fibromyalgia - Migraine, unspecified, not intractable, without status migrainosus - Nicotine dependence, unspecified, uncomplicated - Other retirement (current) drug therapy - Radiographic dye allergy status - Right upper quadrant pain - Urinary tract infection, site not specified INPATIENT VISIT TRACKING (12 MO.) No inpatient visits to display in this time frame [email or web address]
[2023-03-19] MEDS ORDERED: IMITREX5 MG NAS (17:35)
[2023-03-19] MEDS ORDERED: ROSUVASTATIN CAL5 MG (17:36)
[2023-03-19] MEDS ORDERED: ARAVA10 MG PO (17:36)
[2023-03-19 19:14] VITALS: BP 145/86
== END 2023-03-19 19:14 | disposition home or self-care (01) ==
LOC: ED 17:23
DX: G43.909 Migraine, unspecified, not intractable, without status migrainosus (principal); F17.200 Nicotine dependence, unspecified, uncomplicated; Z88.5 Allergy status to narcotic agent; Z88.8 Allergy status to other drugs, medicaments and biological substances; Z79.899 Other long term (current) drug therapy
CPT/HCPCS: 96374; 96375; 99283-25; J1200; J1885; J2765; J7030

== ENCOUNTER 2023-04-01 12:48 | Emergency (ER) | payer MEDICARE, OTHER ==
[~2023-04-01] VITALS: Ht 162.6 cm; Wt 91.1 kg
--- OUTSIDE RECORDS SUMMARY | ~2023-04-01 | XMS | Continuity of Care Document ---
Demographics + + + | Address | [address] | | | [place] [address] | + + + | Preferred Language | Unknown | + + + | Marital Status | | + + + | Hoahaoism Affiliation | Unknown | + + + | Race | White | + + + | Ethnic Group | Not or | + + + Author + + + | Author | [facility] | + + + | Organization | [facility] | + + + | Address | [address] [facility] | | | [place] [address] | + + + | Phone | | + + + Care Team Providers + + + + | Care Environmental Research Scientist Name | Role | Phone | + + + + Unavailable | Unavailable | + + + + Unavailable | Unavailable | + + + + Unavailable | Unavailable | + + + + Unavailable | Unavailable | + + + + Allergies and Intolerances + + + + + + | date | description | facility | reaction | severity | + + + + + + | (no date) | Wasp venom | [facility] | (no reaction) | (no severity) | | [facility] | | | + + + + + + | (no date) | Codeine | [facility] | (no reaction) | (no severity) | | | [facility] | | | + + + + + + | (no date) | codeine | [facility] | (no reaction) | (no severity) | | | [facility] | | | + + + + + + | (no date) | Codeine | [facility] | (no reaction) | (no severity) | | | [facility] | | | + + + + + + | (no date) | Anaphylaxis | [facility] | (no reaction) | (no severity) | | | [facility] | | | + + + + + + | (no date) | Vomiting | [facility] | (no reaction) | (no severity) | | | [facility] | | | + + + + + + | (no date) | Iodine | [facility] | (no reaction) | (no severity) | | | [facility] | | | + + + + + + | (no date) | Iodine | [facility] | (no reaction) | (no severity) | | | [facility] | | | + + + + + + | (no date) | iodine | [facility] | (no reaction) | (no severity) | | | [facility] | | | + + + + + + | (no date) | Iodine | [facility] | (no reaction) | (no severity) | | | [facility] | | | + + + + + + | (no date) | CODEINE | [facility] | (no reaction) | (no severity) | | | | [facility] | | | + + + + + + | (no date) | iodine | [facility] | (no reaction) | (no severity) | + + + + + + | (no date) | codeine | [facility] | (no reaction) | (no severity) | + + + + + + | (no date) | venom-wasp | [facility] | (no reaction) | (no severity) | + + + + + + | (no date) | Codeine | [facility] | (no reaction) | (no severity) | | | [facility] | | | + + + + + + | (no date) | Wasp venom | [facility] | (no reaction) | (no severity) | | | | [facility] | | | + + + + + + Encounters No information. Functional Status No information. Immunizations No information. Medications + + + + | date | description | facility | + + + + | 2022-02-01 00:00 | MEDROXYPROGESTERONE | [facility] | | | ACETATE | | + + + + | 2022-02-10 00:00 | MEDROXYPROGESTERONE | [facility] | | | ACETATE | | + + + + | 2022-08-01 00:00 | MEDROXYPROGESTERONE | [facility] | | | ACETATE | | + + + + | 2022-10-01 00:00 | MEDROXYPROGESTERONE | [facility] | | | ACETATE | | + + + + | 2023-02-02 00:00 | MEDROXYPROGESTERONE | [facility] | | | ACETATE | | + + + + | 2023 00:00 | MEDROXYPROGESTERONE | [facility] | | | ACETATE | | + + + + | 2015-07-03 00:00 | METHOCARBAMOL | [facility] | + + + + | 2015-07-03 00:00 | METHOCARBAMOL | [facility] | + + + + | 2022-02-01 00:00 | CETIRIZINE HCL | [facility] | + + + + | 2022-02-10 00:00 | CETIRIZINE HCL | [facility] | + + + + | 2022-08-01 00:00 | CETIRIZINE HCL | [facility] | + + + + | 2022-10-01 00:00 | CETIRIZINE HCL | [facility] | + + + + | 2023-02-02 00:00 | CETIRIZINE HCL | [facility] | + + + + | 2023 00:00 | CETIRIZINE HCL | [facility] | + + + + | 2022-02-01 00:00 | CETIRIZINE HCL | [facility] | + + + + | 2022-02-10 00:00 | CETIRIZINE HCL | [facility] | + + + + | 2022-08-01 00:00 | CETIRIZINE HCL | [facility] | + + + + | 2022-10-01 00:00 | CETIRIZINE HCL | [facility] | + + + + | 2023-02-02 00:00 | CETIRIZINE HCL | [facility] | + + + + | 2023 00:00 | CETIRIZINE HCL | [facility] | + + + + | 2022-02-09 00:00 | ONDANSETRON | [facility] | + + + + | 2022-02-01 00:00 | OXYCODONE | [facility] | | | HCL/ACETAMINOPHEN | | + + + + | 2022-02-10 00:00 | OXYCODONE | [facility] | | | HCL/ACETAMINOPHEN | | + + + + | 2022-08-01 00:00 | OXYCODONE | [facility] | | | HCL/ACETAMINOPHEN | | + + + + | 2022-10-01 00:00 | OXYCODONE | [facility] | | | HCL/ACETAMINOPHEN | | + + + + | 2023-02-02 00:00 | OXYCODONE | [facility] | | | HCL/ACETAMINOPHEN | | + + + + | 2023 00:00 | OXYCODONE | [facility] | | | HCL/ACETAMINOPHEN | | + + + + | 2022-02-01 00:00 | METHOTREXATE SODIUM | [facility] | + + + + | 2022-02-10 00:00 | METHOTREXATE SODIUM | [facility] | + + + + | 2022-08-01 00:00 | METHOTREXATE SODIUM | [facility] | + + + + | 2022-10-01 00:00 | METHOTREXATE SODIUM | [facility] | + + + + | 2023-02-02 00:00 | METHOTREXATE SODIUM | [facility] | + + + + | 2023 00:00 | METHOTREXATE SODIUM | [facility] | + + + + | 2022-02-01 00:00 | MELATONIN | [facility] | + + + + | 2022-02-10 00:00 | MELATONIN | [facility] | + + + + | 2022-08-01 00:00 | MELATONIN | [facility] | + + + + | 2022-10-01 00:00 | MELATONIN | [facility] | + + + + | 2023-02-02 00:00 | MELATONIN | [facility] | + + + + | 2023 00:00 | MELATONIN | [facility] | + + + + | 2023-02-02 00:00 | TOFACITINIB CITRATE | [facility] | + + + + | 2023 00:00 | TOFACITINIB CITRATE | [facility] | + + + + | 2022-02-01 00:00 | MONTELUKAST SODIUM | [facility] | + + + + | 2022-02-10 00:00 | MONTELUKAST SODIUM | [facility] | + + + + | 2022-08-01 00:00 | MONTELUKAST SODIUM | [facility] | + + + + | 2022-10-01 00:00 | MONTELUKAST SODIUM | [facility] | + + + + | 2023-02-02 00:00 | MONTELUKAST SODIUM | [facility] | + + + + | 2023 00:00 | MONTELUKAST SODIUM | [facility] | + + + + | 2022-02-01 00:00 | DOXYCYCLINE MONOHYDRATE | [facility] | + + + + | 2022-02-10 00:00 | DOXYCYCLINE MONOHYDRATE | [facility] | + + + + | 2022-08-01 00:00 | DOXYCYCLINE MONOHYDRATE | [facility] | + + + + | 2022-10-01 00:00 | DOXYCYCLINE MONOHYDRATE | [facility] | + + + + | 2023-02-02 00:00 | DOXYCYCLINE MONOHYDRATE | [facility] | + + + + | 2023 00:00 | DOXYCYCLINE MONOHYDRATE | [facility] | + + + + | 2022-02-01 00:00 | Acetaminophen | [facility] | + + + + | 2022-02-10 00:00 | Acetaminophen | [facility] | + + + + | 2022-08-01 00:00 | Acetaminophen | [facility] | + + + + | 2022-10-01 00:00 | Acetaminophen | [facility] | + + + + | 2023-02-02 00:00 | Acetaminophen | [facility] | + + + + | 2023 00:00 | Acetaminophen | [facility] | + + + + | 2022-02-01 00:00 | Tofacitinib Citrate | [facility] | + + + + | 2022-02-10 00:00 | Tofacitinib Citrate | [facility] | + + + + | 2022-08-01 00:00 | Tofacitinib Citrate | [facility] | + + + + | 2022-02-01 00:00 | FLUTICASONE PROPIONATE | [facility] | + + + + | 2022-02-10 00:00 | FLUTICASONE PROPIONATE | [facility] | + + + + | 2022-08-01 00:00 | FLUTICASONE PROPIONATE | [facility] | + + + + | 2022-10-01 00:00 | FLUTICASONE PROPIONATE | [facility] | + + + + | 2023-02-02 00:00 | FLUTICASONE PROPIONATE | [facility] | + + + + | 2023 00:00 | FLUTICASONE PROPIONATE | [facility] | + + + + | 2022-02-01 00:00 | BACLOFEN | [facility] | + + + + | 2022-02-10 00:00 | BACLOFEN | [facility] | + + + + | 2022-08-01 00:00 | BACLOFEN | [facility] | + + + + | 2022-10-01 00:00 | BACLOFEN | [facility] | + + + + | 2023-02-02 00:00 | BACLOFEN | [facility] | + + + + | 2023 00:00 | BACLOFEN | [facility] | + + + + | 2022-08-01 00:00 | CEPHALEXIN | [facility] | + + + + | 2022-02-01 00:00 | DEXAMETHASONE | [facility] | + + + + | 2022-02-10 00:00 | DEXAMETHASONE | [facility] | + + + + | 2022-08-01 00:00 | DEXAMETHASONE | [facility] | + + + + | 2022-10-01 00:00 | DEXAMETHASONE | [facility] | + + + + | 2023-02-02 00:00 | DEXAMETHASONE | [facility] | + + + + | 2023 00:00 | DEXAMETHASONE | [facility] | + + + + | 2022-02-01 00:00 | DIAZEPAM | [facility] | + + + + | 2022-02-10 00:00 | DIAZEPAM | [facility] | + + + + | 2022-08-01 00:00 | DIAZEPAM | [facility] | + + + + | 2022-10-01 00:00 | DIAZEPAM | [facility] | + + + + | 2023-02-02 00:00 | DIAZEPAM | [facility] | + + + + | 2023 00:00 | DIAZEPAM | [facility] | + + + + | 2016-07-25 00:00 | IBUPROFEN | [facility] | + + + + | 2016-07-25 00:00 | IBUPROFEN | [facility] | + + + + | 2022-02-01 00:00 | ASCORBIC ACID | [facility] | + + + + | 2022-02-10 00:00 | ASCORBIC ACID | [facility] | + + + + | 2022-08-01 00:00 | ASCORBIC ACID | [facility] | + + + + | 2022-10-01 00:00 | ASCORBIC ACID | [facility] | + + + + | 2023-02-02 00:00 | ASCORBIC ACID | [facility] | + + + + | 2023 00:00 | ASCORBIC ACID | [facility] | + + + + | 2017-12-17 00:00 | LORAZEPAM | [facility] | + + + + | 2017-12-17 00:00 | LORAZEPAM | [facility] | + + + + | 2015-07-03 00:00 | OXAPROZIN | [facility] | + + + + | 2015-07-03 00:00 | OXAPROZIN | [facility] | + + + + | 2022-02-01 00:00 | METOCLOPRAMIDE HCL | [facility] | + + + + | 2022-02-10 00:00 | METOCLOPRAMIDE HCL | [facility] | + + + + | 2022-08-01 00:00 | METOCLOPRAMIDE HCL | [facility] | + + + + | 2022-10-01 00:00 | METOCLOPRAMIDE HCL | [facility] | + + + + | 2023-02-02 00:00 | METOCLOPRAMIDE HCL | [facility] | + + + + | 2023 00:00 | METOCLOPRAMIDE HCL | [facility] | + + + + | 2022-10-01 00:00 | SUMATRIPTAN SUCCINATE | [facility] | + + + + | 2022-02-01 00:00 | RIZATRIPTAN BENZOATE | [facility] | + + + + | 2022-02-10 00:00 | RIZATRIPTAN BENZOATE | [facility] | + + + + | 2022-08-01 00:00 | RIZATRIPTAN BENZOATE | [facility] | + + + + | 2022-10-01 00:00 | RIZATRIPTAN BENZOATE | [facility] | + + + + | 2023-02-02 00:00 | RIZATRIPTAN BENZOATE | [facility] | + + + + | 2023 00:00 | RIZATRIPTAN BENZOATE | [facility] | + + + + | 2023 00:00 | LEFLUNOMIDE | [facility] | + + + + | 2022-02-01 00:00 | | [facility] | | | CYANOCOBALAMIN/FA/PYRIDOXIN | | | | E | | + + + + | 2022-02-10 00:00 | | [facility] | | | CYANOCOBALAMIN/FA/PYRIDOXIN | | | | E | | + + + + | 2022-08-01 00:00 | | [facility] | | | CYANOCOBALAMIN/FA/PYRIDOXIN | | | | E | | + + + + | 2022-10-01 00:00 | | [facility] | | | CYANOCOBALAMIN/FA/PYRIDOXIN | | | | E | | + + + + | 2023-02-02 00:00 | | [facility] | | | CYANOCOBALAMIN/FA/PYRIDOXIN | | | | E | | + + + + | 2023 00:00 | | [facility] | | | CYANOCOBALAMIN/FA/PYRIDOXIN | | | | E | | + + + + | 2022-08-01 00:00 | CLINDAMYCIN PHOSPHATE | [facility] | + + + + | 2022-02-01 00:00 | GABAPENTIN | [facility] | + + + + | 2022-02-10 00:00 | GABAPENTIN | [facility] | + + + + | 2022-08-01 00:00 | GABAPENTIN | [facility] | + + + + | 2022-10-01 00:00 | GABAPENTIN | [facility] | + + + + | 2023-02-02 00:00 | GABAPENTIN | [facility] | + + + + | 2023 00:00 | GABAPENTIN | [facility] | + + + + | 2022-02-01 00:00 | GABAPENTIN | [facility] | + + + + | 2022-02-10 00:00 | GABAPENTIN | [facility] | + + + + | 2022-08-01 00:00 | GABAPENTIN | [facility] | + + + + | 2022-10-01 00:00 | GABAPENTIN | [facility] | + + + + | 2023-02-02 00:00 | GABAPENTIN | [facility] | + + + + | 2023 00:00 | GABAPENTIN | [facility] | + + + + | 2022-10-01 00:00 | LEVETIRACETAM | [facility] | + + + + | 2023-02-02 00:00 | LEVETIRACETAM | [facility] | + + + + | 2023 00:00 | LEVETIRACETAM | [facility] | + + + + | 2022-02-01 00:00 | METOCLOPRAMIDE HCL | [facility] | + + + + | 2022-02-10 00:00 | METOCLOPRAMIDE HCL | [facility] | + + + + | 2022-08-01 00:00 | METOCLOPRAMIDE HCL | [facility] | + + + + | 2022-10-01 00:00 | METOCLOPRAMIDE HCL | [facility] | + + + + | 2023-02-02 00:00 | METOCLOPRAMIDE HCL | [facility] | + + + + | 2023 00:00 | METOCLOPRAMIDE HCL | [facility] | + + + + | 2022-02-01 00:00 | ONDANSETRON | [facility] | + + + + | 2022-02-10 00:00 | ONDANSETRON | [facility] | + + + + | 2022-08-01 00:00 | ONDANSETRON | [facility] | + + + + | 2022-10-01 00:00 | ONDANSETRON | [facility] | + + + + | 2023-02-02 00:00 | ONDANSETRON | [facility] | + + + + | 2023 00:00 | ONDANSETRON | [facility] | + + + + | 2022-02-01 00:00 | RIZATRIPTAN BENZOATE | [facility] | + + + + | 2022-02-10 00:00 | RIZATRIPTAN BENZOATE | [facility] | + + + + | 2022-08-01 00:00 | RIZATRIPTAN BENZOATE | [facility] | + + + + | 2022-10-01 00:00 | RIZATRIPTAN BENZOATE | [facility] | + + + + | 2023-02-02 00:00 | RIZATRIPTAN BENZOATE | [facility] | + + + + | 2023 00:00 | RIZATRIPTAN BENZOATE | [facility] | + + + + | 2022-08-01 00:00 | Pregabalin | [facility] | + + + + | 2023 00:00 | SUMATRIPTAN | [facility] | + + + + | 2022-02-01 00:00 | Abatacept/Maltose | [facility] | + + + + | 2022-02-10 00:00 | Abatacept/Maltose | [facility] | + + + + | 2022-08-01 00:00 | Abatacept/Maltose | [facility] | + + + + | 2022-10-01 00:00 | Abatacept/Maltose | [facility] | + + + + | 2023-02-02 00:00 | Abatacept/Maltose | [facility] | + + + + | 2023 00:00 | Abatacept/Maltose | [facility] | + + + + | 2014-02-17 00:00 | EPINEPHRINE | [facility] | + + + + | 2014-02-17 00:00 | EPINEPHRINE | [facility] | + + + + | 2022-02-01 00:00 | RIZATRIPTAN BENZOATE | [facility] | + + + + | 2022-02-10 00:00 | RIZATRIPTAN BENZOATE | [facility] | + + + + | 2022-08-01 00:00 | RIZATRIPTAN BENZOATE | [facility] | + + + + | 2022-10-01 00:00 | RIZATRIPTAN BENZOATE | [facility] | + + + + | 2023-02-02 00:00 | RIZATRIPTAN BENZOATE | [facility] | + + + + | 2023 00:00 | RIZATRIPTAN BENZOATE | [facility] | + + + + | 2022-02-01 00:00 | DESMOPRESSIN ACETATE | [facility] | + + + + | 2022-02-10 00:00 | DESMOPRESSIN ACETATE | [facility] | + + + + | 2022-08-01 00:00 | DESMOPRESSIN ACETATE | [facility] | + + + + | 2022-10-01 00:00 | DESMOPRESSIN ACETATE | [facility] | + + + + | 2023-02-02 00:00 | DESMOPRESSIN ACETATE | [facility] | + + + + | 2023 00:00 | DESMOPRESSIN ACETATE | [facility] | + + + + | 2022-02-01 00:00 | CHLORHEXIDINE GLUCONATE | [facility] | + + + + | 2022-02-10 00:00 | CHLORHEXIDINE GLUCONATE | [facility] | + + + + | 2022-08-01 00:00 | CHLORHEXIDINE GLUCONATE | [facility] | + + + + | 2022-10-01 00:00 | CHLORHEXIDINE GLUCONATE | [facility] | + + + + | 2023-02-02 00:00 | CHLORHEXIDINE GLUCONATE | [facility] | + + + + | 2023 00:00 | CHLORHEXIDINE GLUCONATE | [facility] | + + + + | 2022-02-01 00:00 | ZOLPIDEM TARTRATE | [facility] | + + + + | 2022-02-10 00:00 | ZOLPIDEM TARTRATE | [facility] | + + + + | 2022-08-01 00:00 | ZOLPIDEM TARTRATE | [facility] | + + + + | 2022-10-01 00:00 | ZOLPIDEM TARTRATE | [facility] | + + + + | 2023-02-02 00:00 | ZOLPIDEM TARTRATE | [facility] | + + + + | 2023 00:00 | ZOLPIDEM TARTRATE | [facility] | + + + + | 2022-02-01 00:00 | AMITRIPTYLINE HCL | [facility] | + + + + | 2022-02-10 00:00 | AMITRIPTYLINE HCL | [facility] | + + + + | 2022-08-01 00:00 | AMITRIPTYLINE HCL | [facility] | + + + + | 2022-10-01 00:00 | AMITRIPTYLINE HCL | [facility] | + + + + | 2023-02-02 00:00 | AMITRIPTYLINE HCL | [facility] | + + + + | 2023 00:00 | AMITRIPTYLINE HCL | [facility] | + + + + | 2015-07-03 00:00 | HYDROCODONE | [facility] | | | BIT/ACETAMINOPHEN | | + + + + | 2015-07-03 00:00 | HYDROCODONE | [facility] | | | BIT/ACETAMINOPHEN | | + + + + | 2023 00:00 | Rosuvastatin Calcium | [facility] | + + + + | 2022-02-01 00:00 | CLOBETASOL PROPIONATE | [facility] | + + + + | 2022-02-10 00:00 | CLOBETASOL PROPIONATE | [facility] | + + + + | 2022-08-01 00:00 | CLOBETASOL PROPIONATE | [facility] | + + + + | 2015-06-01 00:00 | ONDANSETRON | [facility] | + + + + | 2015-06-01 00:00 | ONDANSETRON | [facility] | + + + + | 2022-10-01 00:00 | PROMETHAZINE HCL | [facility] | + + + + Problems + + + + | date | description | facility | + + + + | 2014-05-21 00:00 | Contusion of hand | [facility] | + + + + | 2014-05-21 00:00 | Contusion of hand | [facility] | + + + + | 2014-05-21 00:00 | Superficial bruising | [facility] | + + + + | 2014-05-21 00:00 | Superficial bruising | [facility] | + + + + | 2014-09-12 00:00 | Headache | [facility] | + + + + | 2014-09-12 00:00 | Headache | [facility] | + + + + | 2015-01-17 00:00 | Tonsillitis | [facility] | + + + + | 2015-01-17 00:00 | Tonsillitis | [facility] | + + + + | 2015-07-03 00:00 | Strain of lumbar region | [facility] | + + + + | 2015-07-03 00:00 | Strain of lumbar region | [facility] | + + + + | 2015-10-08 00:00 | Headache, migraine, | [facility] | | | intractable | | + + + + | 2015-10-08 00:00 | Headache, migraine, | [facility] | | | intractable | | + + + + | 2015-10-08 00:00 | Acute bacterial sinusitis | [facility] | + + + + | 2015-10-08 00:00 | Acute bacterial sinusitis | [facility] | + + + + | 2015-12-30 00:00 | Recurrent occipital | [facility] | | | headache | | + + + + | 2015-12-30 00:00 | Recurrent occipital | [facility] | | | headache | | + + + + | 2016-03-17 00:00 | Migraine headache | [facility] | + + + + | 2016-03-17 00:00 | Migraine headache | [facility] | + + + + | 2016-07-25 00:00 | Sprain of right knee | [facility] | + + + + | 2016-07-25 00:00 | Sprain of right knee | [facility] | + + + + | 2016-11-08 00:00 | Headache | [facility] | + + + + | 2016-11-08 00:00 | Headache | [facility] | + + + + | 2016-11-26 00:00 | Patient left without being | [facility] | | | seen | | + + + + | 2016-11-26 00:00 | Patient left without being | [facility] | | | seen | | + + + + | 2018-04-05 00:00 | Recurrent headache | [facility] | + + + + | 2018-04-05 00:00 | Recurrent headache | [facility] | + + + + | 2021-06-06 00:00 | Memory impairment | [facility] | + + + + | 2021-06-06 00:00 | Memory impairment | [facility] | + + + + | 2022-01-22 00:00 | Migraine without aura | [facility] | + + + + | 2022-01-22 00:00 | Migraine without aura | [facility] | + + + + | 2022-02-09 00:00 | Infection due to severe | [facility] | | | acute respiratory syndrome | | | | coronavirus 2 (SARS-CoV-2) | | + + + + | 2022-02-09 00:00 | Infection due to severe | [facility] | | | acute respiratory syndrome [...] 2022-08-01 00:00 | Urinary tract infection | [facility] | + + + + | 2022-08-01 00:00 | Urinary tract infection | [facility] | + + + + | 2022-08-01 00:00 | Abnormal vaginal bleeding | [facility] | + + + + | 2022-08-01 00:00 | Abnormal vaginal bleeding | [facility] | + + + + | 2022-08-01 00:00 | Abdominal pain | [facility] | + + + + | 2022-08-01 00:00 | Abdominal pain | [facility] | + + + + | 2022-08-01 09:43 | NICOTINE DEPENDENCE, | [facility] | | | UNSPECIFIED, UNCOMPLICATED | | + + + + | 2022-08-01 09:43 | MIGRAINE, UNSP, NOT | [facility] | | | INTRACTABLE, WITHOUT STATUS | | | | [place] | | + + + + | [...] + + | 2022-08-01 09:43 | OTHER DETENTION (CURRENT) | [facility] | | | DRUG [...] INTRACTABLE, WITHOUT STATUS | | | | SC | | + + + + | 2022-10-01 17:34 | RHEUMATOID ARTHRITIS, | [facility] | | | UNSPECIFIED | | + + + + | 2022-10-01 17:34 | OTHER PARTY CHIEF (CURRENT) | [facility] | | | DRUG [...] + + + | 2023-01-28 16:42 | PRIMARY OSTEOARTHRITIS, | [facility] | | | RIGHT SHOULDER | | + + + + | 2023-01-28 16:42 | CALCIFIC TENDINITIS OF | [facility] | | | RIGHT SHOULDER | | + + + + | 2023-01-28 16:42 | ILIOTIBIAL BAND SYNDROME, | [facility] | | | RIGHT LEG | | + + + + | 2023-01-28 17:00 | ILIOTIBIAL BAND SYNDROME, | [facility] | | | RIGHT LEG | | + + + + | 2023-02-01 22:05 | NICOTINE DEPENDENCE, | [facility] | | | UNSPECIFIED, UNCOMPLICATED | | + + + + | 2023-02-01 22:05 | MIGRAINE, UNSP, NOT | [facility] | | | INTRACTABLE, WITHOUT STATUS | | | | MIGRAINOSUS | | + + + + | 2023-02-01 22:05 | OTHER PARTY CHIEF (CURRENT) | [facility] | | | DRUG THERAPY | | + + + + | 2023-02-01 22:05 | ALLERGY STATUS TO NARCOTIC | [facility] | | | AGENT STATUS | | + + + + | 2023-02-01 22:05 | ALLERGY STATUS TO OTH | [facility] | | | DRUG/MEDS/BIOL SUBST STATUS | | | | | | + + + + | 2023-02-01 22:05 | BEE ALLERGY STATUS | [facility] | + + + + | 2023-02-28 11:01:33 | Fall | [facility] | + + + + | 2023-02-28 11:04:02 | Fall | [facility] | + + + + | 2023-02-28 11:38:37 | Fall | [facility] [place] | + + + + | 2023-02-28 11:53:55 | Unspecified sprain of left | [facility] | | | foot, initial encounter | | + + + + | 2023-02-28 11:53:55 | Unspecified fall, initial | [facility] [place] | | | encounter | | + + + + | 2023-02-28 11:58:18 | Unspecified sprain of left | [facility] | | | foot, initial encounter | | + + + + | 2023-02-28 11:58:18 | Unspecified fall, initial | [facility] | | | encounter | | + + + + | 2023-02-28 12:18:35 | Unspecified sprain of left | [facility] | | | foot, initial encounter | | + + + + | 2023-02-28 12:18:35 | Unspecified fall, initial | [facility] | | | encounter | | + + + + | 2023-02-28 13:20:43 | Unspecified sprain of left | [facility] | | | foot, initial encounter | | + + + + | 2023-02-28 13:20:43 | Unspecified fall, initial | [facility] | | | encounter | | + + + + | 2023-03-03 13:37:05 | Unspecified sprain of left | [facility] | | | foot, initial encounter | | + + + + | 2023-03-03 13:37:05 | Unspecified fall, initial | [facility] | | | encounter | | + + + + | 2023-03-03 13:38:26 | Unspecified sprain of left | [facility] | | | foot, initial encounter | | + + + + | 2023-03-03 13:38:26 | Unspecified fall, initial | [facility] | | | encounter | | + + + + | 2023-03-13 15:52 | PAIN IN RIGHT ANKLE AND | [facility] | | | JOINTS OF RIGHT FOOT | | + + + + | 2023 17:23 | NICOTINE DEPENDENCE, | [facility] | | | UNSPECIFIED, UNCOMPLICATED | | + + + + | 2023 17:23 | MIGRAINE, UNSP, NOT | [facility] | | | INTRACTABLE, WITHOUT STATUS | | | | MIGRAINOSUS | | + + + + | 2023 17:23 | OTHER PARTY CHIEF (CURRENT) | [facility] | | | DRUG THERAPY | | + + + + | 2023 17:23 | ALLERGY STATUS TO NARCOTIC | [facility] | | | AGENT STATUS | | + + + + | 2023 17:23 | ALLERGY STATUS TO OTH | [facility] | | | DRUG/MEDS/BIOL SUBST STATUS | | | | | | + + + + Procedures No information. Results/Labs +--------+--------+ +---------+--------+---------+ | test | date | facility | value | unit | notes | +--------+--------+ +---------+--------+---------+ + + | Result panel 1 | + + + + + +-------+ + + | | 2022-02-09 | [facility] | 5.7 | (missing) | (missing) | | (unavailable | 18:40 [facility] | | | + + + +-------+ + + + + | Result panel 2 | + + + + + +--------+ + + | | 2022-02-09 | [facility] | 47.6 | (missing) | (missing) | | (unavailable | 18:40 [facility] | | | | + + + +--------+ + + + + | Result panel 3 | + + + + + +--------+ + + | | 2022-02-09 | [facility] | 36.4 | (missing) | (missing) | | (unavailable | 18:40 [facility] | | | | + + + +--------+ + + + + | Result panel 4 | + + + + + +--------+ + + | | 2022-02-09 | [facility] | 13.6 | (missing) | (missing) | | (unavailable | 18:40 [facility] | | | | + + + +--------+ + + + + | Result panel 5 | + + + + + +-------+ + + | | 2022-02-09 | [facility] | 0.4 | (missing) | (missing) | | (unavailable | 18:40 [facility] | | | | + + + +-------+ + + + + | Result panel 6 | + + + + + +-------+ + + | | 2022-02-09 | [facility] | 2.0 | (missing) | (missing) | | (unavailable | 18:40 [facility] | | | | + + + +-------+ + + + + | Result panel 7 | + + + + + +------+---------+ + | | 2022-02-09 | [facility] | 99 | mg/dL | (missing) | | (unavailable | 18:40 | [facility] | | | | + + + +------+---------+ + + + | Result panel 8 | + + + + + +-----+---------+ + | | 2022-02-09 | [facility] | 9 | mg/dL | (missing) | | (unavailable | 18:40 | [facility] | | | | + + + +-----+---------+ + + + | Result panel 9 | + + + + + +--------+---------+ + | | 2022-02-09 | [facility] | 1.00 | mg/dL | (missing) | | (unavailable | 18:40 | [facility] | | | | + + + +--------+---------+ + + + | Result panel 10 | + + + + + +------+ + + | | 2022-02-09 | [facility] | 71 | (missing) | (missing) | | (unavailable | 18:40 | [facility] | | | | + + + +------+ + + + + | Result panel 11 | + + + + + +--------+ + + | | 2022-02-09 | [facility] | 9.00 | (missing) | (missing) | | (unavailable | 18:40 | [facility] | | | | + + + +--------+ + + + + | Result panel 12 | + + + + + +--------+ + + | | 2022-02-09 | [facility] | 4.89 | (missing) | (missing) | | (unavailable | 18:40 [facility] | | | | + + + +--------+ + + + + | Result panel 13 | + + + + + +-------+ + + | | 2022-02-09 | [facility] | 140 | (missing) | (missing) | | (unavailable | 18:40 | [facility] | | | | + + + +-------+ + + + + | Result panel 14 | + + + + + +-------+ + + | | 2022-02-09 | [facility] | 3.2 | (missing) | (missing) | | (unavailable | 18:40 [facility] | | | | + + + +-------+ + + + + | Result panel 15 | + + + + + +-------+ + + | | 2022-02-09 | [facility] | 104 | (missing) | (missing) | | (unavailable | 18:40 | [facility] | | | | + + + +-------+ + + + + | Result panel 16 | + + + + + +------+ + + | | 2022-02-09 | [facility] | 24 | (missing) | (missing) | | (unavailable | 18:40 | [facility] | | | | + + + +------+ + + + + | Result panel 17 | + + + + + +--------+ + + | | 2022-02-09 | [facility] | 15.2 | (missing) | (missing) | | (unavailable | 18:40 | [facility] | | | | + + + +--------+ + + + + | Result panel 18 | + + + + + +-------+---------+ + | | 2022-02-09 | [facility] | 8.6 | mg/dL | (missing) | | (unavailable | 18:40 | [facility] | | | | + + + +-------+---------+ + + + | Result panel 19 | + + + + + +-------+ + + | | 2022-02-09 | [facility] | 7.7 | (missing) | (missing) | | (unavailable | 18:40 | [facility] | | | | + + + +-------+ + + + + | Result panel 20 | + + + + + +-------+ + + | | 2022-02-09 | [facility] | 3.2 | (missing) | (missing) | | (unavailable | 18:40 | [facility] | | | | + + + +-------+ + + + + | Result panel 21 | + + + + + +-------+ + + | | 2022-02-09 | [facility] | 4.5 | (missing) | (missing) | | (unavailable | 18:40 | [facility] | | | | + + + +-------+ + + + + | Result panel 22 | + + + + + +--------+ + + | | 2022-02-09 | [facility] | 0.71 | (missing) | (missing) | | (unavailable | 18:40 | [facility] | | | | + + + +--------+ + + + + | Result panel 23 | + + + + + +--------+ + + | | 2022-02-09 | [facility] | 14.5 | (missing) | (missing) | | (unavailable | 18:40 [facility] | | | | + + + +--------+ + + + + | Result panel 24 | + + + + + +-------+ + + | | 2022-02-09 | [facility] | 0.3 | (missing) | (missing) | | (unavailable | 18:40 [facility] | | | | + + + +-------+ + + + + | Result panel 25 | + + + + + +------+ + + | | 2022-02-09 | [facility] | 30 | (missing) | (missing) | | (unavailable | 18:40 | [facility] | | | | + + + +------+ + + + + | Result panel 26 | + + + + + +------+ + + | | 2022-02-09 | [facility] | 45 | (missing) | (missing) | | (unavailable | 18:40 [facility] | | | | + + + +------+ + + + + | Result panel 27 | + + + + + +------+ + + | | 2022-02-09 | [facility] | 90 | (missing) | (missing) | | (unavailable | 18:40 [facility] | | | | + + + +------+ + + + + | Result panel 28 | + + + + + +-------+ + + | | 2022-02-09 | [facility] | 113 | (missing) | (missing) | | (unavailable | 18:40 | [facility] | | | | + + + +-------+ + + + + | Result panel 29 | + + + + + +--------+ + + | | 2022-02-09 | [facility] | 42.4 | (missing) | (missing) | | (unavailable | 18:40 [facility] | | | | + + + +--------+ + + + + | Result panel 30 | + + + + + +--------+ + + | | 2022-02-09 | [facility] | 86.6 | (missing) | (missing) | | (unavailable | 18:40 | [facility] | | | | + + + +--------+ + + + + | Result panel 31 | + + + + + +--------+ + + | | 2022-02-09 | [facility] | 29.5 | (missing) | (missing) | | (unavailable | 18:40 | [facility] | | | | + + + +--------+ + + + + | Result panel 32 | + + + + + +--------+ + + | | 2022-02-09 | [facility] | 34.1 | (missing) | (missing) | | (unavailable | 18:40 | [facility] | | | | + + + +--------+ + + + + | Result panel 33 | + + + + + +--------+ + + | | 2022-02-09 | [facility] | 14.1 | (missing) | (missing) | | (unavailable | 18:40 [facility] | | | | + + + +--------+ + + + + | Result panel 34 | + + + + + +-------+ + + | | 2022-02-09 | [facility] | 270 | (missing) | (missing) | | (unavailable | 18:40 | [facility] | | | | + + + +-------+ + + + + | Result panel 35 | + + + + + +--------+ + + | | 2022-08-01 | [facility] | 14.1 | (missing) | (missing) | | (unavailable | 09:55:08 | [facility] | | | | + + + +--------+ + + + + | Result panel 36 | + + + + + +--------+ + + | | 2022-08-01 | [facility] | 4.94 | (missing) | (missing) | | (unavailable | 09:55:08 | [facility] | | | | + + + +--------+ + + + + | Result panel 37 | + + + + + +--------+ + + | | 2022-08-01 | [facility] | 14.4 | (missing) | (missing) | | (unavailable | 09:55:08 [facility] | | | | + + + +--------+ + + + + | Result panel 38 | + + + + + +--------+ + + | | 2022-08-01 | [facility] | 44.1 | (missing) | (missing) | | (unavailable | 09:55:08 | [facility] | | | | + + + +--------+ + + + + | Result panel 39 | + + + + + +--------+ + + | | 2022-08-01 | [facility] | 89.4 | (missing) | (missing) | | (unavailable | 09:55:08 | [facility] | | | | + + + +--------+ + + + + | Result panel 40 | + + + + + +--------+ + + | | 2022-08-01 | [facility] | 29.2 | (missing) | (missing) | | (unavailable | 09:55:08 | [facility] | | | | + + + +--------+ + + + + | Result panel 41 | + + + + + +--------+ + + | | 2022-08-01 | [facility] | 32.6 | (missing) | (missing) | | (unavailable | 09:55:08 | [facility] | | | | + + + +--------+ + + + + | Result panel 42 | + + + + + +--------+ + + | | 2022-08-01 | [facility] | 14.1 | (missing) | (missing) | | (unavailable | 09:55:08 [facility] | | | | + + + +--------+ + + + + | Result panel 43 | + + + + + +-------+ + + | | 2022-08-01 | [facility] | 402 | (missing) | (missing) | | (unavailable | 09:55:08 | [facility] | | | | + + + +-------+ + + + + | Result panel 44 | + + + + + +--------+ + + | | 2022-08-01 | [facility] | 69.4 | (missing) | (missing) | | (unavailable | 09:55:08 [facility] | | | | + + + +--------+ + + + + | Result panel 45 | + + + + + +--------+ + + | | 2022-08-01 | [facility] | 23.2 | (missing) | (missing) | | (unavailable | 09:55:08 [facility] | | | | + + + +--------+ + + + + | Result panel 46 | + + + + + +-------+ + + | | 2022-08-01 | [facility] | 5.3 | (missing) | (missing) | | (unavailable | 09:55:08 | [facility] | | | | + + + +-------+ + + + + | Result panel 47 | + + + + + +-------+ + + | | 2022-08-01 | [facility] | 1.2 | (missing) | (missing) | | (unavailable | 09:55:08 | [facility] | | | | + + + +-------+ + + + + | Result panel 48 | + + + + + +-------+ + + | | 2022-08-01 | [facility] | 0.9 | (missing) | (missing) | | (unavailable | 09:55:08 [facility] | | | | + + + +-------+ + + + + | Result panel 49 | + + + + + +-------+---------+ + | | 2022-08-01 | [facility] | 133 | mg/dL | (missing) | | (unavailable | 09:55:08 | [facility] | | | | + + + +-------+---------+ + + + | Result panel 50 | + + + + + +------+---------+ + | | 2022-08-01 | [facility] | 13 | mg/dL | (missing) | | (unavailable | 09:55:08 | [facility] | | | | + + + +------+---------+ + + + | Result panel 51 | + + + + + +--------+---------+ + | | 2022-08-01 | [facility] | 0.96 | mg/dL | (missing) | | (unavailable | 09:55:08 | [facility] | | | | + + + +--------+---------+ + + + | Result panel 52 | + + + + + +------+ + + | | 2022-08-01 | [facility] | 74 | (missing) | (missing) | | (unavailable | 09:55:08 | [facility] | | | | + + + +------+ + + + + | Result panel 53 | + + + + + +---------+ + + | | 2022-08-01 | [facility] | 13.54 | (missing) | (missing) | | (unavailable | 09:55:08 | [facility] | | | | + + + +---------+ + + + + | Result panel 54 | + + + + + +-------+ + + | | 2022-08-01 | [facility] | 139 | (missing) | (missing) | | (unavailable | 09:55:08 | [facility] | | | | + + + +-------+ + + + + | Result panel 55 | + + + + + +-------+ + + | | 2022-08-01 | [facility] | 4.0 | (missing) | (missing) | | (unavailable | 09:55:08 [facility] | | | | + + + +-------+ + + + + | Result panel 56 | + + + + + +-------+ + + | | 2022-08-01 | [facility] | 106 | (missing) | (missing) | | (unavailable | 09:55:08 | [facility] | | | | + + + +-------+ + + + + | Result panel 57 | + + + + + +------+ + + | | 2022-08-01 | [facility] | 28 | (missing) | (missing) | | (unavailable | 09:55:08 | [facility] | | | | + + + +------+ + + + + | Result panel 58 | + + + + + +-------+ + + | | 2022-08-01 | [facility] | 9.0 | (missing) | (missing) | | (unavailable | 09:55:08 [facility] | | | | + + + +-------+ + + + + | Result panel 59 | + + + + + +-------+---------+ + | | 2022-08-01 | [facility] | 8.8 | mg/dL | (missing) | | (unavailable | 09:55:08 | [facility] | | | | + + + +-------+---------+ + + + | Result panel 60 | + + + + + +-------+ + + | | 2022-08-01 | [facility] | 8.5 | (missing) | (missing) | | (unavailable | 09:55:08 | [facility] | | | | + + + +-------+ + + + + | Result panel 61 | + + + + + +-------+ + + | | 2022-08-01 | [facility] | 3.2 | (missing) | (missing) | | (unavailable | 09:55:08 | [facility] | | | | + + + +-------+ + + + + | Result panel 62 | + + + + + +-------+ + + | | 2022-08-01 | [facility] | 5.3 | (missing) | (missing) | | (unavailable | 09:55:08 [facility] | | | | + + + +-------+ + + + + | Result panel 63 | + + + + + +--------+ + + | | 2022-08-01 | [facility] | 0.60 | (missing) | (missing) | | (unavailable | 09:55:08 [facility] | | | | + + + +--------+ + + + + | Result panel 64 | + + + + + +-------+ + + | | 2022-08-01 | [facility] | 0.3 | (missing) | (missing) | | (unavailable | 09:55:08 [facility] | | | | + + + +-------+ + + + + | Result panel 65 | + + + + + +------+ + + | | 2022-08-01 | [facility] | 10 | (missing) | (missing) | | (unavailable | 09:55:08 [facility] | | | | + + + +------+ + + + + | Result panel 66 | + + + + + +------+ + + | | 2022-08-01 | [facility] | 22 | (missing) | (missing) | | (unavailable | 09:55:08 [facility] | | | | + + + +------+ + + + + | Result panel 67 | + + + + + +-------+ + + | | 2022-08-01 | [facility] | 109 | (missing) | (missing) | | (unavailable | 09:55:08 | [facility] | | | | + + + +-------+ + + + + | Result panel 68 | + + + + + +-------+ + + | | 2022-08-01 | [facility] | 181 | (missing) | (missing) | | (unavailable | 09:55:08 [facility] | | | | + + + +-------+ + + + + | Result panel 69 | + + + + + + + + + | | 2022-08-01 | [facility] | NEGATIVE | (missing) | (missing) | | (unavailable | 09:55:08 [facility] | | | | + + + + + + + + + | Result panel 70 | + + + + + + + + + | | 2022-08-01 | [facility] | YELLOW | (missing) | (missing) | | (unavailable | 10:20:08 | [facility] | | | | + + + + + + + + + | Result panel 71 | + + + + + +---------+ + + | | 2022-08-01 | [facility] | CLEAR | (missing) | (missing) | | (unavailable | 10:20:08 | [facility] | | | | + + + +---------+ + + + + | Result panel 72 | + + + + + + + + + | | 2022-08-01 | [facility] | NEGATIVE | (missing) | (missing) | | (unavailable | 10:20:08 | [facility] | | | | + + + + + + + + + | Result panel 73 | + + + + + + + + + | | 2022-08-01 | [facility] | NEGATIVE | (missing) | (missing) | | (unavailable | 10:20:08 [facility] | | | | + + + + + + + + + | Result panel 74 | + + + + + + + + + | | 2022-08-01 | [facility] | NEGATIVE | (missing) | (missing) | | (unavailable | 10:20:08 | [facility] | | | | + + + + + + + + + | Result panel 75 | + + + + + +---------+ + + | | 2022-08-01 | [facility] | 1.025 | (missing) | (missing) | | (unavailable | 10:20:08 | [facility] | | | | + + + +---------+ + + + + | Result panel 76 | + + + + + +---------+ + + | | 2022-08-01 | [facility] | LARGE | (missing) | (missing) | | (unavailable | 10:20:08 | [facility] | | | | + + + +---------+ + + + + | Result panel 77 | + + + + + +-------+ + + | | 2022-08-01 | [facility] | 5.5 | (missing) | (missing) | | (unavailable | 10:20:08 [facility] | | | | + + + +-------+ + + + + | Result panel 78 | + + + + + +-------+ + + | | 2022-08-01 | [facility] | 100 | (missing) | (missing) | | (unavailable | 10:20:08 | [facility] | | | | + + + +-------+ + + + + | Result panel 79 | + + + + + + + + + | | 2022-08-01 | [facility] | NORMAL | (missing) | (missing) | | (unavailable | 10:20:08 | [facility] | | | | + + + + + + + + + | Result panel 80 | + + + + + + + + + | | 2022-08-01 | [facility] | NEGATIVE | (missing) | (missing) | | (unavailable | 10:20:08 | [facility] | | | | + + + + + + + + + | Result panel 81 | + + + + + +---------+ + + | | 2022-08-01 | [facility] | TRACE | (missing) | (missing) | | (unavailable | 10:20:08 [facility] | | | | + + + +---------+ + + + + | Result panel 82 | + + + + + +--------+ + + | | 2022-08-01 | [facility] | 7-11 | (missing) | (missing) | | (unavailable | 10:20:08 | [facility] | | | | + + + +--------+ + + + + | Result panel 83 | + + + + + +---------+ + + | | 2022-08-01 | [facility] | 12-20 | (missing) | (missing) | | (unavailable | 10:20:08 [facility] | | | | + + + +---------+ + + + + | Result panel 84 | + + + + + + + + + | | 2022-08-01 | [facility] | RENAL 1+ | (missing) | (missing) | | (unavailable | 10:20:08 | [facility] | | | | + + + + + + + + + | Result panel 85 | + + + + + + + + + | | 2022-08-01 | [facility] | NONE SEEN | (missing) | (missing) | | (unavailable | 10:20:08 | [facility] | | | | + + + + + + + + + | Result panel 86 | + + + + + +------+ + + | | 2022-08-01 | [facility] | 2+ | (missing) | (missing) | | (unavailable | 10:20:08 [facility] | | | | + + + +------+ + + + + | Result panel 87 | + + + + + + + + + | | 2022-08-01 | [facility] | NONE SEEN | (missing) | (missing) | | (unavailable | 10:20:08 | [facility] | | | | + + + + + + + + + | Result panel 88 | + + + + + +-------+ + + | | 2022-08-01 | [facility] | Yes | (missing) | (missing) | | (unavailable | 10:20:08 [facility] | | | | + + + +-------+ + + + + | Result panel 89 | + + + + + + + + + | | 2022-08-01 | [facility] | CLEAN CATCH | (missing) | (missing) | | (unavailable | 10:20:08 | [facility] | | | | + + + + + + + + + | Result panel 90 | + + + + +-------+ + + + | | 2023-02-28 | [facility] | (missing) | (missing) | (missing) | | (unavailable | 11:08 | | | | | | ) | | | | | | + + +-------+ + + + | | 2023-02-28 | [facility] | BONES: | (missing) | (missing) | | (unavailable | 11:08 | | Normal | | | | ) | | | anatomic | | | | | | | alignment. | | | | | | | No fracture | | | | | | | or | | | | | | | dislocation. | | | | | | | | | | + + +-------+ + + + | | 2023-02-28 | [facility] | COMPARISON: | (missing) | (missing) | | (unavailable | 11:08 | | None. | | | | ) | | | | | | + + +-------+ + + + | | 2023-02-28 | [facility] | Dictated | (missing) | (missing) | | (unavailable | 11:08 | | by: Zachariah Acuna | | | | ) | | | Kenny, | | | | | | | MCheri on | | | | | | | 02/28/2023 | | | | | | | 12:09 PM PDT | | | | | | | | | | + + +-------+ + + + | | 2023-02-28 | [facility] | | (missing) | (missing) | | (unavailable | 11:08 | | Electronical | | | | ) | | | ly signed | | | | | | | by: Zachariah Acuna | | | | | | | Kenny | | | | | | | M.Sunny on | | | | | | | 02/28/2023 | | | | | | | 12:10 PM PDT | | | | | | | | | | + + +-------+ + + + | | 2023-02-28 | [facility] | FINDINGS: | (missing) | (missing) | | (unavailable | 11:08 | | | | | | ) | | | | | | + + +-------+ + + + | | 2023-02-28 | [facility] | HISTORY: | (missing) | (missing) | | (unavailable | 11:08 | | FALL | | | | ) | | | | | | + + +-------+ + + + | | 2023-02-28 | [facility] | IMPRESSION: | (missing) | (missing) | | (unavailable | 11:08 | | | | | | ) | | | | | | + + +-------+ + + + | | 2023-02-28 | [facility] | JOINTS: | (missing) | (missing) | | (unavailable | 11:08 | | Normal. No | | | | ) | | | arthritis. | | | + + +-------+ + + + | | 2023-02-28 | [facility] | | (missing) | (missing) | | (unavailable | 11:08 | | MINERALIZATI | | | | ) | | | ON: Normal. | | | + + +-------+ + + + | | 2023-02-28 | [facility] | Mild soft | (missing) | (missing) | | (unavailable | 11:08 | | tissue | | | | ) | | | swelling. No | | | | | | | acute | | | | | | | fracture | | | + + +-------+ + + + | | 2023-02-28 | [facility] | OTHER | (missing) | (missing) | | (unavailable | 11:08 | | FINDINGS: | | | | ) | | | There is | | | | | | | mild soft | | | | | | | tissue | | | | | | | swelling | | | | | | | about the | | | | | | | ankle. | | | + + +-------+ + + + | | 2023-02-28 | [facility] | Performing | (missing) | (missing) | | (unavailable | 11:08 | | Location: | | | | ) | | | [facility] | | | | | | [facility] | | | + + +-------+ + + + | | 2023-02-28 | [facility] | Result | (missing) | (missing) | | (unavailable | 11:08 | | Status = | | | | ) | | | Final | | | + + +-------+ + + + | | 2023-02-28 | [facility] | XR ANKLE | (missing) | (missing) | | (unavailable | 11:08 | | LEFT 3 + VW | | | | ) | | | 02/28/2023 | | | | | | | 11:44 AM PDT | | | | | | | | | | + + +-------+ + + + | | 2023-02-28 | [facility] | XR ANKLE | (missing) | (missing) | | (unavailable | 11:08 | | LEFT 3 + VW | | | | ) | | | | | | + + +-------+ + + + + + | Result panel 91 | + + + + +-------+ + + + | | 2023-02-28 | [facility] | (missing) | (missing) | (missing) | | (unavailable | 11:24 | | | | | | ) | | | | | | + + +-------+ + + + | | 2023-02-28 | [facility] | BONES: | (missing) | (missing) | | (unavailable | 11:24 | | Moderate-siz | | | | ) | | | ed bunion | | | | | | | deformity | | | | | | | great toe | | | | | | | metatarsal | | | | | | | head. | | | + + +-------+ + + + | | 2023-02-28 | [facility] | COMPARISON: | (missing) | (missing) | | (unavailable | 11:24 | | None. | | | | ) | | | | | | + + +-------+ + + + | | 2023-02-28 | [facility] | Dictated | (missing) | (missing) | | (unavailable | 11:24 | | by: Zachariah Acuna | | | | ) | | aKm Cox | | | | | | | Barney on | | | | | | | 02/28/2023 | | | | | | | 12:08 PM PDT | | | | | | | | | | + + +-------+ + + + | | 2023-02-28 | [facility] | | (missing) | (missing) | | (unavailable | 11:24 | | Electronical | | | | ) | | | ly signed | | | | | | | by: Zachariah Acuna | | | | | | | Kenny, | | | | | | | Barney on | | | | | | | 02/28/2023 | | | | | | | 12:09 PM PDT | | | | | | | | | | + + +-------+ + + + | | 2023-02-28 | [facility] | FINDINGS: | (missing) | (missing) | | (unavailable | 11:24 | | | | | | ) | | | | | | + + +-------+ + + + | | 2023-02-28 | [facility] | HISTORY: | (missing) | (missing) | | (unavailable | 11:24 | | FALL | | | | ) | | | | | | + + +-------+ + + + | | 2023-02-28 | [facility] | IMPRESSION: | (missing) | (missing) | | (unavailable | 11:24 | | | | | | ) | | | | | | + + +-------+ + + + | | 2023-02-28 | [facility] | JOINTS: | (missing) | (missing) | | (unavailable | 11:24 | | Moderate | | | | ) | | | hallux | | | | | | | valgus | | | | | | | deformity. | | | + + +-------+ + + + | | 2023-02-28 | [facility] | No acute | (missing) | (missing) | | (unavailable | 11:24 | | fracture | | | | ) | | | deformity | | | | | | | identified. | | | + + +-------+ + + + | | 2023-02-28 | [facility] | Performing | (missing) | (missing) | | (unavailable | 11:24 | | Location: | | | | ) | | | [facility] | | | [facility] | | | | | | | Services | | | + + +-------+ + + + | | 2023-02-28 | [facility] | Result | (missing) | (missing) | | (unavailable | 11:24 | | Status = | | | | ) | | | Final | | | + + +-------+ + + + | | 2023-02-28 | [facility] | SOFT | (missing) | (missing) | | (unavailable | 11:24 | | TISSUE: | | | | ) | | | Normal. | | | + + +-------+ + + + | | 2023-02-28 | [facility] | XR FOOT | (missing) | (missing) | | (unavailable | 11:24 | | LEFT 3 + VW | | | | ) | | | 02/28/2023 | | | | | | | 11:47 AM PDT | | | | | | | | | | + + +-------+ + + + | | 2023-02-28 | [facility] | XR FOOT | (missing) | (missing) | | (unavailable | 11:24 | | LEFT 3 + VW | | | | ) | | | | | | + + +-------+ + + + Social History No information. Vital [...] 195 | lb | + + + +---------+ | 2023-02-01 00:00 | BMI | 34.3 | kg/m2 | + + + +---------+ | 2023-02-01 00:00 | BP_diastolic | 95 | mmHg | + + + +---------+ | 2023-02-01 00:00 | BP_systolic | 140 | mmHg | + + + +---------+ | 2023-02-01 00:00 | heart_rate | 102 | /min | + + + +---------+ | 2023-02-01 00:00 | height_metric | 162.56 | cm | + + + +---------+ | 2023-02-01 00:00 | height_standard | 64 | in | + + + +---------+ | 2023-02-01 00:00 | o2_saturation | 98 | % | + + + +---------+ | 2023-02-01 00:00 | respiration_rate | 15 | /min | + + + +---------+ | 2023-02-01 00:00 | temperature_metric | 36.67 | C | | | | | | + + + +---------+ | 2023-02-01 00:00 | | 98 | F | | | temperature_standar | | | | | d | | | + + + +---------+ | 2023-02-01 00:00 | weight_metric | 90.72 | kg | + + + +---------+ | 2023-02-01 00:00 | weight_standard | 200 | lb | + + + +---------+ | 2023 00:00 | BMI | 34.5 | kg/m2 | + + + +---------+ | 2023 00:00 | BP_diastolic | 86 | mmHg | + + + +---------+ | 2023 00:00 | BP_systolic | 145 | mmHg | + + + +---------+ | 2023 00:00 | heart_rate | 89 | /min | + + + +---------+ | 2023 00:00 | height_metric | 162.56 | cm | + + + +---------+ | 2023 00:00 | height_standard | 64 | in | + + + +---------+ | 2023 00:00 | o2_saturation | 96 | % | + + + +---------+ | 2023 00:00 | respiration_rate | 20 | /min | + + + +---------+ | 2023 00:00 | temperature_metric | 36.44 | C | | | | | | + + + +---------+ | 2023 00:00 | | 97.6 | F | | | temperature_standar | | | | | d | | | + + + +---------+ | 2023 00:00 | weight_metric | 91.1 | kg | + + + +---------+ | 2023 00:00 | weight_standard | 200.84 | lb | + + + +---------+"
--- OUTSIDE RECORDS SUMMARY | ~2023-04-01 | XMS | Continuity of Care Document ---
Demographics + + + | Address | [address] | | | [place] [address] | + + + | Preferred Language | Unknown | + + + | Marital Status | | + + + | Roman Catholic Affiliation | Unknown | + + + | Race | White | + + + | Ethnic Group | Not or | + + + Author + + + | Author | [facility] | + + + | Organization | [facility] | + + + | Address | [address] | | | [place] [address] | + + + | Phone | | + + + Care Team Providers + + + + | Care Evaporator Repairer Name | Role | Phone | + [...] + | (no date) | CODEINE | Story | (no reaction) | (no severity) | | | | [place] | | | + + + + [...] + | 2022-02-01 00:00 | MEDROXYPROGESTERONE | [facility] | | | ACETATE | | + + + + | 2022-02-10 00:00 | MEDROXYPROGESTERONE | [facility] | | | ACETATE | | + + + + | 2022-08-01 00:00 | MEDROXYPROGESTERONE | [facility] | | | ACETATE | | + + + + | 2022-10-01 00:00 | MEDROXYPROGESTERONE | [facility] | | | ACETATE | | + + + + | 2023-02-02 00:00 | MEDROXYPROGESTERONE | [facility] | | | ACETATE | | + + + + | 2023 00:00 | MEDROXYPROGESTERONE | [facility] | | | ACETATE | | + + + + | 2015-07-03 00:00 | METHOCARBAMOL | [facility] | + + + + | 2015-07-03 00:00 | METHOCARBAMOL | [facility] | + + + + | 2022-02-01 00:00 | CETIRIZINE HCL | [facility] | + + + + | 2022-02-10 00:00 | CETIRIZINE HCL | [facility] | + + + + | 2022-08-01 00:00 | CETIRIZINE HCL | [facility] | + + + + | 2022-10-01 00:00 | CETIRIZINE HCL | [facility] | + + + + | 2023-02-02 00:00 | CETIRIZINE HCL | [facility] | + + + + | 2023 00:00 | CETIRIZINE HCL | [facility] | + + + + | 2022-02-01 00:00 | CETIRIZINE HCL | [facility] | + + + + | 2022-02-10 00:00 | CETIRIZINE HCL | [facility] | + + + + | 2022-08-01 00:00 | CETIRIZINE HCL | [facility] | + + + + | 2022-10-01 00:00 | CETIRIZINE HCL | [facility] | + + + + | 2023-02-02 00:00 | CETIRIZINE HCL | [facility] | + + + + | 2023 00:00 | CETIRIZINE HCL | [facility] | + + + + | 2022-02-09 00:00 | ONDANSETRON | [facility] | + + + + | 2022-02-01 00:00 | OXYCODONE | [facility] | | | HCL/ACETAMINOPHEN | | + + + + | 2022-02-10 00:00 | OXYCODONE | [facility] | | | HCL/ACETAMINOPHEN | | + + + + | 2022-08-01 00:00 | OXYCODONE | [facility] | | | HCL/ACETAMINOPHEN | | + + + + | 2022-10-01 00:00 | OXYCODONE | [facility] | | | HCL/ACETAMINOPHEN | | + + + + | 2023-02-02 00:00 | OXYCODONE | [facility] | | | HCL/ACETAMINOPHEN | | + + + + | 2023 00:00 | OXYCODONE | [facility] | | | HCL/ACETAMINOPHEN | | + + + + | 2022-02-01 00:00 | METHOTREXATE SODIUM | [facility] | + + + + | 2022-02-10 00:00 | METHOTREXATE SODIUM | [facility] | + + + + | 2022-08-01 00:00 | METHOTREXATE SODIUM | [facility] | + + + + | 2022-10-01 00:00 | METHOTREXATE SODIUM | [facility] | + + + + | 2023-02-02 00:00 | METHOTREXATE SODIUM | [facility] | + + + + | 2023 00:00 | METHOTREXATE SODIUM | [facility] | + + + + | 2022-02-01 00:00 | MELATONIN | [facility] | + + + + | 2022-02-10 00:00 | MELATONIN | [facility] | + + + + | 2022-08-01 00:00 | MELATONIN | [facility] | + + + + | 2022-10-01 00:00 | MELATONIN | [facility] | + + + + | 2023-02-02 00:00 | MELATONIN | [facility] | + + + + | 2023 00:00 | MELATONIN | [facility] | + + + + | 2023-02-02 00:00 | TOFACITINIB CITRATE | [facility] | + + + + | 2023 00:00 | TOFACITINIB CITRATE | [facility] | + + + + | 2022-02-01 00:00 | MONTELUKAST SODIUM | [facility] | + + + + | 2022-02-10 00:00 | MONTELUKAST SODIUM | [facility] | + + + + | 2022-08-01 00:00 | MONTELUKAST SODIUM | [facility] | + + + + | 2022-10-01 00:00 | MONTELUKAST SODIUM | [facility] | + + + + | 2023-02-02 00:00 | MONTELUKAST SODIUM | [facility] | + + + + | 2023 00:00 | MONTELUKAST SODIUM | [facility] | + + + + | 2022-02-01 00:00 | DOXYCYCLINE MONOHYDRATE | [facility] | + + + + | 2022-02-10 00:00 | DOXYCYCLINE MONOHYDRATE | [facility] | + + + + | 2022-08-01 00:00 | DOXYCYCLINE MONOHYDRATE | [facility] | + + + + | 2022-10-01 00:00 | DOXYCYCLINE MONOHYDRATE | [facility] | + + + + | 2023-02-02 00:00 | DOXYCYCLINE MONOHYDRATE | [facility] | + + + + | 2023 00:00 | DOXYCYCLINE MONOHYDRATE | [facility] | + + + + | 2022-02-01 00:00 | Acetaminophen | [facility] | + + + + | 2022-02-10 00:00 | Acetaminophen | [facility] | + + + + | 2022-08-01 00:00 | Acetaminophen | [facility] | + + + + | 2022-10-01 00:00 | Acetaminophen | [facility] | + + + + | 2023-02-02 00:00 | Acetaminophen | [facility] | + + + + | 2023 00:00 | Acetaminophen | [facility] | + + + + | 2022-02-01 00:00 | Tofacitinib Citrate | [facility] | + + + + | 2022-02-10 00:00 | Tofacitinib Citrate | [facility] | + + + + | 2022-08-01 00:00 | Tofacitinib Citrate | [facility] | + + + + | 2022-02-01 00:00 | FLUTICASONE PROPIONATE | [facility] | + + + + | 2022-02-10 00:00 | FLUTICASONE PROPIONATE | [facility] | + + + + | 2022-08-01 00:00 | FLUTICASONE PROPIONATE | [facility] | + + + + | 2022-10-01 00:00 | FLUTICASONE PROPIONATE | [facility] | + + + + | 2023-02-02 00:00 | FLUTICASONE PROPIONATE | [facility] | + + + + | 2023 00:00 | FLUTICASONE PROPIONATE | [facility] | + + + + | 2022-02-01 00:00 | BACLOFEN | [facility] | + + + + | 2022-02-10 00:00 | BACLOFEN | [facility] | + + + + | 2022-08-01 00:00 | BACLOFEN | [facility] | + + + + | 2022-10-01 00:00 | BACLOFEN | [facility] | + + + + | 2023-02-02 00:00 | BACLOFEN | [facility] | + + + + | 2023 00:00 | BACLOFEN | [facility] | + + + + | 2022-08-01 00:00 | CEPHALEXIN | [facility] | + + + + | 2022-02-01 00:00 | DEXAMETHASONE | [facility] | + + + + | 2022-02-10 00:00 | DEXAMETHASONE | [facility] | + + + + | 2022-08-01 00:00 | DEXAMETHASONE | [facility] | + + + + | 2022-10-01 00:00 | DEXAMETHASONE | [facility] | + + + + | 2023-02-02 00:00 | DEXAMETHASONE | [facility] | + + + + | 2023 00:00 | DEXAMETHASONE | [facility] | + + + + | 2022-02-01 00:00 | DIAZEPAM | [facility] | + + + + | 2022-02-10 00:00 | DIAZEPAM | [facility] | + + + + | 2022-08-01 00:00 | DIAZEPAM | [facility] | + + + + | 2022-10-01 00:00 | DIAZEPAM | [facility] | + + + + | 2023-02-02 00:00 | DIAZEPAM | [facility] | + + + + | 2023 00:00 | DIAZEPAM | [facility] | + + + + | 2016-07-25 00:00 | IBUPROFEN | [facility] | + + + + | 2016-07-25 00:00 | IBUPROFEN | [facility] | + + + + | 2022-02-01 00:00 | ASCORBIC ACID | [facility] | + + + + | 2022-02-10 00:00 | ASCORBIC ACID | [facility] | + + + + | 2022-08-01 00:00 | ASCORBIC ACID | [facility] | + + + + | 2022-10-01 00:00 | ASCORBIC ACID | [facility] | + + + + | 2023-02-02 00:00 | ASCORBIC ACID | [facility] | + + + + | 2023 00:00 | ASCORBIC ACID | [facility] | + + + + | 2017-12-17 00:00 | LORAZEPAM | [facility] | + + + + | 2017-12-17 00:00 | LORAZEPAM | [facility] | + + + + | 2015-07-03 00:00 | OXAPROZIN | [facility] | + + + + | 2015-07-03 00:00 | OXAPROZIN | [facility] | + + + + | 2022-02-01 00:00 | METOCLOPRAMIDE HCL | [facility] | + + + + | 2022-02-10 00:00 | METOCLOPRAMIDE HCL | [facility] | + + + + | 2022-08-01 00:00 | METOCLOPRAMIDE HCL | [facility] | + + + + | 2022-10-01 00:00 | METOCLOPRAMIDE HCL | [facility] | + + + + | 2023-02-02 00:00 | METOCLOPRAMIDE HCL | [facility] | + + + + | 2023 00:00 | METOCLOPRAMIDE HCL | [facility] | + + + + | 2022-10-01 00:00 | SUMATRIPTAN SUCCINATE | [facility] | + + + + | 2022-02-01 00:00 | RIZATRIPTAN BENZOATE | [facility] | + + + + | 2022-02-10 00:00 | RIZATRIPTAN BENZOATE | [facility] | + + + + | 2022-08-01 00:00 | RIZATRIPTAN BENZOATE | [facility] | + + + + | 2022-10-01 00:00 | RIZATRIPTAN BENZOATE | [facility] | + + + + | 2023-02-02 00:00 | RIZATRIPTAN BENZOATE | [facility] | + + + + | 2023 00:00 | RIZATRIPTAN BENZOATE | [facility] | + + + + | 2023 00:00 | LEFLUNOMIDE | [facility] | + + + + | 2022-02-01 00:00 | | [facility] | | | CYANOCOBALAMIN/FA/PYRIDOXIN | | | | E | | + + + + | 2022-02-10 00:00 | | [facility] | | | CYANOCOBALAMIN/FA/PYRIDOXIN | | | | E | | + + + + | 2022-08-01 00:00 | | [facility] | | | CYANOCOBALAMIN/FA/PYRIDOXIN | | | | E | | + + + + | 2022-10-01 00:00 | | [facility] | | | CYANOCOBALAMIN/FA/PYRIDOXIN | | | | E | | + + + + | 2023-02-02 00:00 | | [facility] | | | CYANOCOBALAMIN/FA/PYRIDOXIN | | | | E | | + + + + | 2023 00:00 | | [facility] | | | CYANOCOBALAMIN/FA/PYRIDOXIN | | | | E | | + + + + | 2022-08-01 00:00 | CLINDAMYCIN PHOSPHATE | [facility] | + + + + | 2022-02-01 00:00 | GABAPENTIN | [facility] | + + + + | 2022-02-10 00:00 | GABAPENTIN | [facility] | + + + + | 2022-08-01 00:00 | GABAPENTIN | [facility] | + + + + | 2022-10-01 00:00 | GABAPENTIN | [facility] | + + + + | 2023-02-02 00:00 | GABAPENTIN | [facility] | + + + + | 2023 00:00 | GABAPENTIN | [facility] | + + + + | 2022-02-01 00:00 | GABAPENTIN | [facility] | + + + + | 2022-02-10 00:00 | GABAPENTIN | [facility] | + + + + | 2022-08-01 00:00 | GABAPENTIN | [facility] | + + + + | 2022-10-01 00:00 | GABAPENTIN | [facility] | + + + + | 2023-02-02 00:00 | GABAPENTIN | [facility] | + + + + | 2023 00:00 | GABAPENTIN | [facility] | + + + + | 2022-10-01 00:00 | LEVETIRACETAM | [facility] | + + + + | 2023-02-02 00:00 | LEVETIRACETAM | [facility] | + + + + | 2023 00:00 | LEVETIRACETAM | [facility] | + + + + | 2022-02-01 00:00 | METOCLOPRAMIDE HCL | [facility] | + + + + | 2022-02-10 00:00 | METOCLOPRAMIDE HCL | [facility] | + + + + | 2022-08-01 00:00 | METOCLOPRAMIDE HCL | [facility] | + + + + | 2022-10-01 00:00 | METOCLOPRAMIDE HCL | [facility] | + + + + | 2023-02-02 00:00 | METOCLOPRAMIDE HCL | [facility] | + + + + | 2023 00:00 | METOCLOPRAMIDE HCL | [facility] | + + + + | 2022-02-01 00:00 | ONDANSETRON | [facility] | + + + + | 2022-02-10 00:00 | ONDANSETRON | [facility] | + + + + | 2022-08-01 00:00 | ONDANSETRON | [facility] | + + + + | 2022-10-01 00:00 | ONDANSETRON | [facility] | + + + + | 2023-02-02 00:00 | ONDANSETRON | [facility] | + + + + | 2023 00:00 | ONDANSETRON | [facility] | + + + + | 2022-02-01 00:00 | RIZATRIPTAN BENZOATE | [facility] | + + + + | 2022-02-10 00:00 | RIZATRIPTAN BENZOATE | [facility] | + + + + | 2022-08-01 00:00 | RIZATRIPTAN BENZOATE | [facility] | + + + + | 2022-10-01 00:00 | RIZATRIPTAN BENZOATE | [facility] | + + + + | 2023-02-02 00:00 | RIZATRIPTAN BENZOATE | [facility] | + + + + | 2023 00:00 | RIZATRIPTAN BENZOATE | [facility] | + + + + | 2022-08-01 00:00 | Pregabalin | [facility] | + + + + | 2023 00:00 | SUMATRIPTAN | [facility] | + + + + | 2022-02-01 00:00 | Abatacept/Maltose | [facility] | + + + + | 2022-02-10 00:00 | Abatacept/Maltose | [facility] | + + + + | 2022-08-01 00:00 | Abatacept/Maltose | [facility] | + + + + | 2022-10-01 00:00 | Abatacept/Maltose | [facility] | + + + + | 2023-02-02 00:00 | Abatacept/Maltose | [facility] | + + + + | 2023 00:00 | Abatacept/Maltose | [facility] | + + + + | 2014-02-17 00:00 | EPINEPHRINE | [facility] | + + + + | 2014-02-17 00:00 | EPINEPHRINE | [facility] | + + + + | 2022-02-01 00:00 | RIZATRIPTAN BENZOATE | [facility] | + + + + | 2022-02-10 00:00 | RIZATRIPTAN BENZOATE | [facility] | + + + + | 2022-08-01 00:00 | RIZATRIPTAN BENZOATE | [facility] | + + + + | 2022-10-01 00:00 | RIZATRIPTAN BENZOATE | [facility] | + + + + | 2023-02-02 00:00 | RIZATRIPTAN BENZOATE | [facility] | + + + + | 2023 00:00 | RIZATRIPTAN BENZOATE | [facility] | + + + + | 2022-02-01 00:00 | DESMOPRESSIN ACETATE | [facility] | + + + + | 2022-02-10 00:00 | DESMOPRESSIN ACETATE | [facility] | + + + + | 2022-08-01 00:00 | DESMOPRESSIN ACETATE | [facility] | + + + + | 2022-10-01 00:00 | DESMOPRESSIN ACETATE | [facility] | + + + + | 2023-02-02 00:00 | DESMOPRESSIN ACETATE | [facility] | + + + + | 2023 00:00 | DESMOPRESSIN ACETATE | [facility] | + + + + | 2022-02-01 00:00 | CHLORHEXIDINE GLUCONATE | [facility] | + + + + | 2022-02-10 00:00 | CHLORHEXIDINE GLUCONATE | [facility] | + + + + | 2022-08-01 00:00 | CHLORHEXIDINE GLUCONATE | [facility] | + + + + | 2022-10-01 00:00 | CHLORHEXIDINE GLUCONATE | [facility] | + + + + | 2023-02-02 00:00 | CHLORHEXIDINE GLUCONATE | [facility] | + + + + | 2023 00:00 | CHLORHEXIDINE GLUCONATE | [facility] | + + + + | 2022-02-01 00:00 | ZOLPIDEM TARTRATE | [facility] | + + + + | 2022-02-10 00:00 | ZOLPIDEM TARTRATE | [facility] | + + + + | 2022-08-01 00:00 | ZOLPIDEM TARTRATE | [facility] | + + + + | 2022-10-01 00:00 | ZOLPIDEM TARTRATE | [facility] | + + + + | 2023-02-02 00:00 | ZOLPIDEM TARTRATE | [facility] | + + + + | 2023 00:00 | ZOLPIDEM TARTRATE | [facility] | + + + + | 2022-02-01 00:00 | AMITRIPTYLINE HCL | [facility] | + + + + | 2022-02-10 00:00 | AMITRIPTYLINE HCL | [facility] | + + + + | 2022-08-01 00:00 | AMITRIPTYLINE HCL | [facility] | + + + + | 2022-10-01 00:00 | AMITRIPTYLINE HCL | [facility] | + + + + | 2023-02-02 00:00 | AMITRIPTYLINE HCL | [facility] | + + + + | 2023 00:00 | AMITRIPTYLINE HCL | [facility] | + + + + | 2015-07-03 00:00 | HYDROCODONE | [facility] | | | BIT/ACETAMINOPHEN | | + + + + | 2015-07-03 00:00 | HYDROCODONE | [facility] | | | BIT/ACETAMINOPHEN | | + + + + | 2023 00:00 | Rosuvastatin Calcium | [facility] | + + + + | 2022-02-01 00:00 | CLOBETASOL PROPIONATE | [facility] | + + + + | 2022-02-10 00:00 | CLOBETASOL PROPIONATE | [facility] | + + + + | 2022-08-01 00:00 | CLOBETASOL PROPIONATE | [facility] | + + + + | 2015-06-01 00:00 | ONDANSETRON | [facility] | + + + + | 2015-06-01 00:00 | ONDANSETRON | [facility] | + + + + | 2022-10-01 00:00 | PROMETHAZINE HCL | [facility] | + + + + Problems + + + + | date | description | facility | + + + + | 2014-05-21 00:00 | Contusion of hand | [facility] | + + + + | 2014-05-21 00:00 | Contusion of hand | [facility] | + + + + | 2014-05-21 00:00 | Superficial bruising | [facility] | + + + + | 2014-05-21 00:00 | Superficial bruising | [facility] | + + + + | 2014-09-12 00:00 | Headache | [facility] | + + + + | 2014-09-12 00:00 | Headache | [facility] | + + + + | 2015-01-17 00:00 | Tonsillitis | [facility] | + + + + | 2015-01-17 00:00 | Tonsillitis | [facility] | + + + + | 2015-07-03 00:00 | Strain of lumbar region | [facility] | + + + + | 2015-07-03 00:00 | Strain of lumbar region | [facility] | + + + + | 2015-10-08 00:00 | Headache, migraine, | [facility] | | | intractable | | + + + + | 2015-10-08 00:00 | Headache, migraine, | [facility] | | | intractable | | + + + + | 2015-10-08 00:00 | Acute bacterial sinusitis | [facility] | + + + + | 2015-10-08 00:00 | Acute bacterial sinusitis | [facility] | + + + + | 2015-12-30 00:00 | [facility]ipital [facility] | | | headache | | + + + + | 2015-12-30 00:00 | Recurrent occipital | [facility] | | | headache | | + + + + | 2016-03-17 00:00 | Migraine headache | [facility] | + + + + | 2016-03-17 00:00 | Migraine headache | [facility] | + + + + | 2016-07-25 00:00 | Sprain of right knee | [facility] | + + + + | 2016-07-25 00:00 | Sprain of right knee | [facility] | + + + + | 2016-11-08 00:00 | Headache | [facility] | + + + + | 2016-11-08 00:00 | Headache | [facility] | + + + + | 2016-11-26 00:00 | Patient left without being | [facility] | | | seen | | + + + + | 2016-11-26 00:00 | Patient left without being | [facility] | | | seen | | + + + + | 2018-04-05 00:00 | Recurrent headache | [facility] | + + + + | 2018-04-05 00:00 | Recurrent headache | [facility] | + + + + | 2021-06-06 00:00 | Memory impairment | [facility] | + + + + | 2021-06-06 00:00 | Memory impairment | [facility] | + + + + | 2022-01-22 00:00 | Migraine without aura | [facility] | + + + + | 2022-01-22 00:00 | Migraine without aura | [facility] | + + + + | 2022-02-09 00:00 | Infection due to severe | [facility] | | | acute respiratory syndrome | | | | coronavirus 2 (SARS-CoV-2) | | + + + + | 2022-02-09 00:00 | Infection due to severe | [facility] | | | acute respiratory [...] 2022-08-01 00:00 | Urinary tract infection | [facility] | + + + + | 2022-08-01 00:00 | Urinary tract infection | [facility] | + + + + | 2022-08-01 00:00 | Abnormal vaginal bleeding | [facility] | + + + + | 2022-08-01 00:00 | Abnormal vaginal bleeding | [facility] | + + + + | 2022-08-01 00:00 | Abdominal pain | [facility] | + + + + | 2022-08-01 00:00 | Abdominal pain | [facility] | + + + + | 2022-08-01 09:43 | NICOTINE DEPENDENCE, | [facility] | | | UNSPECIFIED, UNCOMPLICATED | | + + + + | 2022-08-01 09:43 | MIGRAINE, UNSP, NOT | [facility] | | | INTRACTABLE, WITHOUT STATUS | | | | PA | | + + + + | [...] + + | 2022-08-01 09:43 | OTHER SHELTER (CURRENT) | [facility] | | | DRUG [...] INTRACTABLE, WITHOUT STATUS | | | | PA | | + + + + | 2022-10-01 17:34 | RHEUMATOID ARTHRITIS, | [facility] | | | UNSPECIFIED | | + + + + | 2022-10-01 17:34 | 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) | [facility] | | | DRUG [...] + + | 2023-02-01 22:05 | 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) | [facility] | | | DRUG [...] + | 2023-02-28 11:38:37 | Fall | [facility] | + + + + | 2023-02-28 11:53:55 | Unspecified sprain of left | [facility] | | | foot, initial encounter | | + + + + | 2023-02-28 11:53:55 | Unspecified fall, initial | [facility] | | | encounter | | + + + + | 2023-02-28 11:58:18 | Unspecified sprain of left | [facility] | | | foot, initial encounter | | + + + + | 2023-02-28 11:58:18 | Unspecified fall, initial | [facility] | | | encounter | | + + + + | 2023-02-28 12:18:35 | Unspecified sprain of left | [facility] | | | foot, initial encounter | | + + + + | 2023-02-28 12:18:35 | Unspecified fall, initial | [facility] | | | encounter | | + + + + | 2023-02-28 13:20:43 | Unspecified sprain of left | [facility] | | | foot, initial encounter | | + + + + | 2023-02-28 13:20:43 | Unspecified fall, initial | [facility] | | | encounter | | + + + + | 2023-03-03 13:37:05 | Unspecified sprain of left | [facility] | | | foot, initial encounter | | + + + + | 2023-03-03 13:37:05 | Unspecified fall, initial | [facility] | | | encounter | | + [...] + + | 2023 17:23 | 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) | [facility] | | | DRUG [...] (missing) | | (unavailable | 09:55:08 | Jre | | | | | [...] | | | ) | | | Story | | | | | | | [...] | | | | ) | | [facility] | | | | | | [...] | | | ) | | | Story | | | | | | | [...]
[~2023-04-01 12:48] MED LIST changes: +ARAVA10 MG PO; +IMITREX5 MG NAS; +ROSUVASTATIN CAL5 MG
[2023-04-01 13:14] LABS: BASOPHILS 0.6 % (0-2); EOSINOPHILS 0.8 % (0-6); HEMATOCRIT 42.5 % (35.0-50.0); LYMPHOCYTES 23.1 % (24-44); MCH 29.8 (27-36); MCV 90.3 fl (81-99); NEUTROPHILS 68.5 % (39-80); PLATELET COUNT 371 K/uL (140-440); RBC 4.71 M/ul (4.3-5.7); RDW 13.9 (10.5-15.0)
[2023-04-01 13:20] LABS: ALBUMIN 3.3 g/dL (3.4-5.0); ALBUMIN/GLOBULIN RATIO 0.73 (1.1-2.4); ALCOHOL, MEDICAL <3 ng/dL (<3); ALKALINE PHOSPHATASE 108 U/L (46-116); ALT (SGPT) 19 U/L (14-59); ANION GAP 19.7 (7-21); AST (SGOT) 19 U/L (15-37); BILIRUBIN, TOTAL 0.2 ng/dL (0.2-1.0); BUN/CREATININE RATIO 12.17 (6.0-28.6); CARBON DIOXIDE 21 mmol/L (21-32); CHLORIDE 104 mmol/L (98-107); CREATININE, SERUM 1.15 mg/dL (0.55-1.02); GLOMERULAR FILTRATION RATE,EST 59 mL/min (>60); POTASSIUM 3.7 mmol/L (3.5-5.1); PROTEIN, TOTAL 7.8 g/dL (6.4-8.2); UREA NITROGEN 14 mg/dL (7-18)
--- OUTSIDE RECORDS SUMMARY | 2023-04-01 14:06 | XMS ---
PreManage Notification: SANJEEV BENITEZ Security Senior Care Provider Events No recent Security Events currently on file CRITERIA MET - Group Notification - [facility] - 2 Visits in 30 Days CARE PROVIDERS TYRONE [facility] 09/02/2019-Current PHONE: Unknown Emma has no Care Guidelines for this patient. Care History Medical/Surgical 04/09/2021 [facility] - CHW CONTACTED DR HANSEN OFFICE- PATIENT HAS AN APT ON 05/13/21 FOR FOLLOW UP APT. - [facility] REQUESTED IF PCP COULD POSSIBLY REVIEW MEDICATION ADJUSTMENTS AND OR REFERRAL TO A SPECIALIST DUE TO REOCCURRING MIGRAINES. RN NOTED TO PHYSICIAN. 05/24/2018 [facility] - PATIENT HAS NOT SEEN PCP DR HANSEN SINCE 06/24/2017. PATIENT HAS A LONG HISTORY OF CHRONIC HEADACHES/MIGRAINES. - PATIENT NEEDS TO FOLLOW UP WITH PCP AFTER ED VISIT. - PLEASE REFER PATIENT TO PCP OFFICE FOR CHRONIC CONDITIONS THAT ARE NON EMERGENT. E.D. VISIT COUNT (12 MO.) 5 [facility] 1 [facility] TOTAL 6 NOTE: Visits indicate total known visits. 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 02[facility]28[facility]2023 10:39 [facility] DIAGNOSES: - Unspecified fall, initial encounter - Unspecified sprain of left foot, initial encounter 02/01/2023 22:05 [facility] TYPE: Emergency COMPLAINT: - MIGRAINE DIAGNOSES: - Allergy status to narcotic agent - Allergy status to other drugs, medicaments and biological substances - Bee allergy status - Migraine, unspecified, not intractable, without status migrainosus - Nicotine dependence, unspecified, uncomplicated - Other usp (current) drug therapy 10/01/2022 17:34 [facility] TYPE: Emergency COMPLAINT: - HEADACHE DIAGNOSES: - Allergy status to narcotic agent - Bee allergy status - Headache, unspecified - Migraine, unspecified, not intractable, without status migrainosus - Nicotine dependence, unspecified, uncomplicated - 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 [place] TYPE: Emergency COMPLAINT: - VAGINAL BLEEDING DIAGNOSES: - Abnormal uterine and vaginal bleeding, unspecified - Allergy status to narcotic agent - Bee allergy status - Fibromyalgia - Migraine, unspecified, not intractable, without status migrainosus - Nicotine dependence, unspecified, uncomplicated - Other usp (current) drug therapy - Radiographic dye allergy status - Right upper quadrant pain - Urinary tract infection, site not specified INPATIENT VISIT TRACKING (12 MO.) No inpatient visits to display in this time frame [email or web address]
[2023-04-01 15:02] LABS: BILIRUBIN, URINE NEGATIVE (negative); BLOOD/HGB, URINE TRACE-I (Negative); KETONE, URINE NEGATIVE (Negative); LEUK ESTERASE, URINE NEGATIVE (negative); NITRITE, URINE NEGATIVE (negative)
[2023-04-01 15:06] LABS: AMPHETAMINES, UR NEGATIVE (NEGATIVE); BARBITURATES, UR NEGATIVE (NEGATIVE); BENZODIAZEPINES, UR POSITIVE (NEGATIVE); MARIJUANA (THC), UR POSITIVE (NEGATIVE); PREGNANCY TEST, URINE NEGATIVE (NEG)
[2023-04-01 15:07] LABS: BUPRENORPHINE,UR NEGATIVE (NEGATIVE); COCAINE, UR NEGATIVE (NEGATIVE); MDMA, UR NEGATIVE (NEGATIVE); METHADONE, UR NEGATIVE (NEGATIVE); METHAMPHETAMINE, UR NEGATIVE (NEGATIVE); OPIATES, UR NEGATIVE (NEGATIVE); OXYCODONE, UR NEGATIVE (NEGATIVE); PHENCYCLIDINE, UR NEGATIVE (NEGATIVE); TRICYCLIC ANTIDEPRESSANT, UR NEGATIVE (NEGATIVE)
[2023-04-01 15:12] LABS: BACTERIA, URINE RARE /hpf (negative); CASTS, URINE NONE SEEN \\lpf; COLLECTION TYPE, URINE CLEAN CATCH; CRYSTALS, URINE NONE SEEN (0-1+); EPITHELIAL CELLS, URINE SQUAMOUS 2+ /lpf (0-1+); REFLEX CULTURE, URINE No (No)
[2023-04-01 16:56] VITALS: BP 129/90
== END 2023-04-01 16:57 | disposition home or self-care (01) ==
LOC: ED 12:48
PROVIDERS: Emergency Medicine
DX: R56.9 Unspecified convulsions (principal); F17.200 Nicotine dependence, unspecified, uncomplicated; Z88.5 Allergy status to narcotic agent; Z88.8 Allergy status to other drugs, medicaments and biological substances; Z91.030 Bee allergy status; Z79.899 Other long term (current) drug therapy
CPT/HCPCS: 36415; 80053; 81001; 84703; 85025; 96374; 99285-25; G0480; J2405

== ENCOUNTER 2024-08-13 19:27 | Emergency (ER) | payer MEDICARE, OTHER ==
[~2024-08-13] VITALS: Ht 162.6 cm; Wt 88.5 kg
[~2024-08-13 19:27] MED LIST changes: +FOLIC ACID1 MG PO; +HYDROCODON-ACE1 EA11 PO; +KEPPRA500 MG PO; +PERCOCET 7.5-31 EACH PO; +ROPINIROLE HCL1 MG PO
[2024-08-13] MEDS ORDERED: METHOTREXA25 MG/1 ML INJ (20:36)
[2024-08-13] MEDS ORDERED: ATORVASTATIN CA40 MG PO (20:36)
[2024-08-13] MEDS ORDERED: LAMOTRIGINE100 MG PO (20:37)
[2024-08-13] MEDS ORDERED: KETOROLAC TROMETHAMINE 30 MG/ML VIAL IV ONE (20:45)
[2024-08-13] MEDS ORDERED: diphenhydrAMINE HCL 50 MG/ML VIAL IV ONE (20:45)
[2024-08-13] MEDS ORDERED: SODIUM CHLORIDE 0.9% 500 ML IV ONE (20:45)
[2024-08-13] MEDS ORDERED: SUMAtriptan succinate 6 MG/0.5 ML VIAL SUB-Q ONE (20:45)
[2024-08-13] MEDS ORDERED: METOCLOPRAMIDE HCL 10 MG/2 ML SDV IV ONE (20:45)
[2024-08-13] MEDS ORDERED: BUTALB-ACETAMI1 EACH PO (22:09)
[2024-08-13] MEDS ORDERED: ONDANSETRON ODT8 MG PO (22:20)
[2024-08-13 22:28] VITALS: BP 140/97
== END 2024-08-13 22:28 | disposition home or self-care (01) ==
LOC: ED 19:27
DX: G43.909 Migraine, unspecified, not intractable, without status migrainosus (principal); M06.9 Rheumatoid arthritis, unspecified; F17.200 Nicotine dependence, unspecified, uncomplicated; Z88.5 Allergy status to narcotic agent; Z91.041 Radiographic dye allergy status; Z91.030 Bee allergy status; Z79.899 Other long term (current) drug therapy
CPT/HCPCS: 96374; 96375; 99283-25; J1200; J1885; J2765; J3030; J7040

== ENCOUNTER 2024-12-04 09:05 | Emergency (ER) | payer MEDICARE, OTHER ==
[~2024-12-04] VITALS: Ht 162.6 cm; Wt 97.5 kg
[~2024-12-04 09:05] MED LIST changes: +ATORVASTATIN CA40 MG PO; +BUTALB-ACETAMI1 EACH PO; +LAMOTRIGINE100 MG PO; +METHOTREXA25 MG/1 ML INJ
[2024-12-04] MEDS ORDERED: levETIRAcetam 500 MG/5 ML VIAL IV ONE (09:15)
[2024-12-04] MEDS ORDERED: SODIUM CHLORIDE 0.9% 1,000 ML IV PRN (09:15)
[2024-12-04 09:19] LABS: HEMATOCRIT 45.8 % (35.0-50.0); HEMOGLOBIN 15.3 g/dL (12.0-18.0); MCH 30.2 (27-36); MCHC 33.4 g/dl (30-36); MCV 90.4 fl (81-99); PLATELET COUNT 410 K/uL (140-440); RBC 5.07 M/ul (4.3-5.7); RDW 14.5 (10.5-15.0)
[2024-12-04 09:25] LABS: PH, VENOUS 7.121 (7.31-7.41)
[2024-12-04 09:44] LABS: ALBUMIN 3.4 g/dL (3.4-5.0); ALBUMIN/GLOBULIN RATIO 0.71 (1.1-2.4); ANION GAP 23.2 (7-21); BILIRUBIN, TOTAL 0.3 mg/dL (0.2-1.0); BUN/CREATININE RATIO 9.42 (6.0-28.6); CALCIUM 8.6 mg/dL (8.5-10.1); CREATININE, SERUM 1.38 mg/dL (0.55-1.02); POTASSIUM 3.2 mmol/L (3.5-5.1); PROTEIN, TOTAL 8.2 g/dL (6.4-8.2)
[2024-12-04] MEDS ORDERED: DOXYCYCLINE HY100 MG PO (09:49)
[2024-12-04 09:57] LABS: BASOPHILS, MANUAL DIFF 1; EOSINOPHILS, MANUAL DIFF 2; LYMPHOCYTES, MANUAL DIFF 24; MONOCYTES, MANUAL DIFF 6; NEUTROPHILS, MANUAL DIFF 67
[2024-12-04] MEDS ORDERED: KEPPRA500 MG PO (13:28)
[2024-12-04] MEDS ORDERED: ONDANSETRON 4 MG TAB ODT SL ONE (14:00)
[2024-12-04 14:01] LABS: BILIRUBIN, URINE NEGATIVE (negative); BLOOD/HGB, URINE TRACE-I (Negative); KETONE, URINE NEGATIVE (Negative); LEUK ESTERASE, URINE NEGATIVE (negative); NITRITE, URINE NEGATIVE (negative)
[2024-12-04 14:15] LABS: AMPHETAMINES, URINE NEGATIVE (NEGATIVE); BARBITURATES, URINE NEGATIVE (NEGATIVE); BENZODIAZEPINE, URINE NEGATIVE (NEGATIVE); BUPRENORPHINE, URINE NEGATIVE (NEGATIVE); CANNABINOID, URINE POSITIVE (NEGATIVE); COCAINE, URINE NEGATIVE (NEGATIVE); ECSTASY, URINE NEGATIVE (NEGATIVE); FENTANYL, URINE NEGATIVE (NEGATIVE); METHADONE, URINE NEGATIVE (NEGATIVE); OPIATES, URINE NEGATIVE (NEGATIVE); OXYCODONE, URINE NEGATIVE (NEGATIVE); PHENCYCLIDINE, URINE NEGATIVE (NEGATIVE)
[2024-12-04 14:34] LABS: WHITE BLOOD CELLS, URINE 0-1 /HPF (0-5)
[2024-12-04 14:35] LABS: EPITHELIAL CELLS, URINE SQUAMOUS 4+ /lpf (0-1+); REFLEX CULTURE, URINE No (No)
[2024-12-04 15:39] VITALS: BP 134/87
== END 2024-12-04 15:39 | disposition home or self-care (01) ==
LOC: ED 09:05
PROVIDERS: Emergency Medicine
DX: R56.9 Unspecified convulsions (principal); Z91.041 Radiographic dye allergy status; Z88.5 Allergy status to narcotic agent
CPT/HCPCS: 36415; 70450; 80053; 80307; 81001; 82803; 85025; 96374; 99284-25; A9270; J1953; J7030

== ENCOUNTER 2025-01-12 13:37 | Emergency (ER) | payer MEDICARE, OTHER ==
[~2025-01-12] VITALS: Ht 162.6 cm; Wt 97.5 kg
[2025-01-12] MEDS ORDERED: levETIRAcetam 4,500 MG in DEXTROSE 5% 100 ML IV ONE (13:45)
[2025-01-12] MEDS ORDERED: LORazepam 2 MG/ML VIAL IV ONE (13:45)
[2025-01-12 14:05] LABS: BASOPHILS 0.5 % (0.1-1.2); EOSINOPHILS 0.3 % (0.7-5.8); HEMATOCRIT 43.4 % (34.1-44.9); HEMOGLOBIN 14.5 g/dL (11.2-15.7); MCH 29.8 PG (25.6-32.2); MCHC 33.4 g/dL (32.2-35.5); MCV 89.3 fL (79.4-94.8); MONOCYTES 3.6 % (4.7-12.5); PLATELET COUNT 278 K/uL (182-369); RBC 4.86 M/uL (3.93-5.22)
[2025-01-12] MEDS ORDERED: ondansetron HCL 4 MG/2 ML VIAL IV ONE (14:15)
[2025-01-12 14:22] LABS: ALBUMIN 3.2 g/dL (3.4-5.0); ALBUMIN/GLOBULIN RATIO 0.71 (1.1-2.4); ANION GAP 18.9 (7-21); BILIRUBIN, TOTAL 0.3 mg/dL (0.2-1.0); BUN/CREATININE RATIO 10.81 (6.0-28.6); CALCIUM 8.9 mg/dL (8.5-10.1); CREATININE, SERUM 1.11 mg/dL (0.55-1.02); MAGNESIUM 1.9 mg/dL (1.8-2.4); POTASSIUM 3.9 mmol/L (3.5-5.1); PROTEIN, TOTAL 7.7 g/dL (6.4-8.2)
[2025-01-12] MEDS ORDERED: KEPPRA500 MG PO (15:56)
[2025-01-12 16:25] LABS: BILIRUBIN, URINE NEGATIVE (negative); BLOOD/HGB, URINE NEGATIVE (Negative); KETONE, URINE TRACE (Negative); LEUK ESTERASE, URINE NEGATIVE (negative); NITRITE, URINE NEGATIVE (negative)
[2025-01-12 16:32] LABS: BACTERIA, URINE NONE SEEN /hpf (negative); CASTS, URINE NONE SEEN \\lpf; COLLECTION TYPE, URINE CLEAN CATCH; CRYSTALS, URINE NONE SEEN (0-1+); EPITHELIAL CELLS, URINE SQUAMOUS 4+ /lpf (0-1+); RED BLOOD CELLS, URINE 0-1 /hpf (0-5); REFLEX CULTURE, URINE No (No)
[2025-01-12 17:06] VITALS: BP 118/86
[2025-01-12] MEDS ORDERED: ONDANSETRON 4 MG TAB ODT SL ONE (17:15)
[2025-01-12] MEDS ORDERED: ONDANSETRON 4 MG HOME.PACK SL ONE (17:15)
== END 2025-01-12 17:06 | disposition home or self-care (01) ==
LOC: ED 13:37
PROVIDERS: Family Medicine
DX: G40.909 Epilepsy, unspecified, not intractable, without status epilepticus (principal); F17.200 Nicotine dependence, unspecified, uncomplicated; Z91.041 Radiographic dye allergy status; Z88.5 Allergy status to narcotic agent; Z91.030 Bee allergy status
CPT/HCPCS: 36415; 80053; 81001; 83735; 85025; 96365; 96375; 99284-25; A9270; J1953; J2060; J2405

== ENCOUNTER 2025-06-18 10:53 | Emergency (ER) | payer MEDICARE, OTHER ==
[~2025-06-18] VITALS: Ht 162.6 cm; Wt 84.1 kg
--- OUTSIDE RECORDS SUMMARY | ~2025-06-18 | XMS | Continuity of Care Document ---
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 Encounters No information. Functional Status No information. Immunizations No information. Medications + + + + | date | description | facility | + + + + | (no date) | MEDROXYPROGESTERONE | [facility] | | | ACETATE | [facility] | + + + + | (no date) | CETIRIZINE HCL | [facility] | | | | [facility] | + + + + | (no date) | CETIRIZINE HCL | [facility] | | | | [facility] | + + + + | (no date) | OXYCODONE | [facility] | | | HCL/ACETAMINOPHEN | [facility] | + + + + | (no date) | METHOTREXATE SODIUM | [facility] | | | | [facility] | + + + + | (no date) | MELATONIN | [facility] | | | | [facility] | + + + + | (no date) | MONTELUKAST SODIUM | [facility] | | | | [facility] | + + + + | (no date) | DOXYCYCLINE HYCLATE | [facility] | | | | [facility] | + + + + | (no date) | DOXYCYCLINE MONOHYDRATE | [facility] | | | | [facility] | + + + + | (no date) | Acetaminophen | [facility] | | | | [facility] | + + + + | (no date) | Tofacitinib Citrate | [facility] | | | | [facility] | + + + + | (no date) | FLUTICASONE PROPIONATE | [facility] | | | | [facility] | + + + + | (no date) | METHOTREXATE SODIUM | [facility] | | | | [facility] | + + + + | (no date) | BACLOFEN | [facility] | | | | [facility] | + + + + | (no date) | DEXAMETHASONE | [facility] | | | | [facility] | + + + + | (no date) | DIAZEPAM | [facility] | | | | [facility] | + + + + | (no date) | LAMOTRIGINE | [facility] | | | | [facility] | + + + + | (no date) | ASCORBIC ACID | [facility] | | | | [facility] | + + + + | (no date) | METOCLOPRAMIDE HCL | [facility] | | | | [facility] | + + + + | (no date) | RIZATRIPTAN BENZOATE | [facility] | | | | [facility] | + + + + | (no date) | LEFLUNOMIDE | [facility] | | | | [facility] | + + + + | (no date) | | [facility] | | | CYANOCOBALAMIN/FA/PYRIDOXIN | [facility] | | | E | | + + + + | (no date) | FOLIC ACID | [facility] | | | | [facility] | + + + + | (no date) | GABAPENTIN | [facility] | | | | [facility] | + + + + | (no date) | GABAPENTIN | [facility] | | | | [facility] | + + + + | (no date) | LEVETIRACETAM | [facility] | | | | [facility] | + + + + | (no date) | METOCLOPRAMIDE HCL | [facility] | | | | [facility] | + + + + | (no date) | ONDANSETRON | [facility] | | | | [facility] | + + + + | (no date) | RIZATRIPTAN BENZOATE | [facility] | | | | [facility] | + + + + | (no date) | ROPINIROLE HCL | [facility] | | | | [facility] | + + + + | (no date) | SUMATRIPTAN | [facility] | | | | [facility] | + + + + | (no date) | Abatacept/Maltose | [facility] | | | | [facility] | + + + + | (no date) | ATORVASTATIN CALCIUM | [facility] | | | | [facility] | + + + + | (no date) | RIZATRIPTAN BENZOATE | [facility] | | | | [facility] | + + + + | (no date) | DESMOPRESSIN ACETATE | [facility] | | | | [facility] | + + + + | (no date) | CHLORHEXIDINE GLUCONATE | [facility] | | | | [facility] | + + + + | (no date) | ZOLPIDEM TARTRATE | [facility] | | | | [facility] | + + + + | (no date) | AMITRIPTYLINE HCL | [facility] | | | | [facility] | + + + + | (no date) | Rosuvastatin Calcium | [facility] | | | | [facility] | + + + + Problems No information. Procedures No information. Results/Labs No information. Social History +--------+ + + | date | description | facility | +--------+ + + Vital Signs No information."
[2025-06-18] MEDS ORDERED: CYCLOBENZAPRINE10 MG PO (13:23)
[2025-06-18] MEDS ORDERED: CYCLOBENZAPRINE HCL 10 MG TAB PO ONE (13:30)
[2025-06-18 13:39] VITALS: BP 112/78
== END 2025-06-18 13:39 | disposition home or self-care (01) ==
LOC: ED 10:53
DX: M54.41 Lumbago with sciatica, right side (principal); G43.909 Migraine, unspecified, not intractable, without status migrainosus; F17.200 Nicotine dependence, unspecified, uncomplicated; Z79.899 Other long term (current) drug therapy; Z91.041 Radiographic dye allergy status; Z91.030 Bee allergy status; Z88.5 Allergy status to narcotic agent
CPT/HCPCS: 72100; 99283